=== PATIENT | female | born 1945 | race Caucasian/White ===

== ENCOUNTER 2018-08-31 14:40 | Inpatient (IN) | payer OTHER ==
[~2018-08-31] VITALS: Ht 157.5 cm; Wt 68.0 kg
[~2018-08-31 14:40] MED LIST: ACET-141 PO; ACET325T45 PO; BISA10SU55 RC; BUDE0.5A INHALATION; CEPH500C PO; FURO20TA3 PO; INSU100C SQ; LEVA0.634 INHALATION; LISI-471 PO; MAGN400O19 PO; NA P133E39 RC; OXYC5CAP17 PO; SERT25TA PO
[2018-08-31 15:14] VITALS: Ht 157.5 cm; Wt 68.0 kg
[2018-08-31] MEDS ORDERED: ONDANSETRON 4 MG INJ IV STA (15:30)
--- NOTE | 2018-08-31 16:28 | ERD ---
ER Documentation Chief Complaint Chief Complaint Pt. APRYL RA, c/o weakness in front of urgent care. HPI Patient states that she had surgery in [facility] several years ago for her heart. Was also have an urgent care today when she felt weak and ambulance was called and patient was brought to the ER. Patient denies having syncope, chest pain, nausea or vomiting, infectious symptoms or fever. Denies any headache or head trauma. Patient states she feels weak right now but no other symptoms. ROS All systems reviewed and are negative except as per history of present illness. Medications Home Meds Reported Medications Lisinopril* (Lisinopril*) 20 Mg Tablet, 20 MG PO DAILY, #30 TAB HOLD IF SBP<110 08/31/18 Budesonide* (Budesonide*) 0.5 Mg/2 Ml Ampul.neb, 0.5 MG INHALATION BID, AMP 08/31/18 Cephalexin* (Cephalexin*) 500 Mg Capsule, 500 MG PO Q8, #21 CAP FOR 7 DAYS,STOP DATE 09/01/18 08/31/18 Sertraline Hcl* (Zoloft*) 25 Mg Tablet, 25 MG PO DAILY, #30 TAB 08/31/18 Acetaminophen* (Acetaminophen*) 500 MG Extra Strength Tablet, 500 MG PO Q4H PRN for MILD PAIN(1-3)OR ELEVATED TEMP, TAB 08/31/18 Acetaminophen* (Acetaminophen*) 325 Mg Tablet, 650 MG PO Q4H PRN for PAIN LEVEL 4-6/10, #30 TAB AND FEVER>100F 08/31/18 Sodium Phosphate,[place]-Dibasic (Enema Ready To Use) 133 Ml Enema, 133 ML RC Q2D, ENEMA 08/31/18 Bisacodyl (Dulcolax) 10 Mg Supp.rect, 10 MG RC DAILY, SUPP.RECT 08/31/18 Magnesium Hydroxide* (Milk Of Magnesia*) 400 Mg/5 Ml Oral.susp, 30 ML PO DAILY PRN for NEEDED, ML 08/31/18 Levalbuterol Hcl* (Levalbuterol Hcl*) 0.63 Mg/3 Ml Vial.neb, 0.63 MG INHALATION Q4H PRN for WHEEZING AND SOB, VIAL 08/31/18 Oxycodone Hcl* (IR) (Oxycodone Hcl*) 5 Mg Capsule, 5 MG PO Q6H PRN for PAIN LEVEL 7-10/10, CAP 08/31/18 Insulin Lispro (Humalog) 100 Unit/1 Ml Cartridge, 0 SQ SLIDING SCALE, EA IF BS 0-150=0 UNIT, 151-200=2 UNITS,201-250=4 UNITS, 251-300=6 UNITS, 301-350=8 UNITS, 351-400=10 UNITS ABOVE 400=12 UNITS AND CALL MD 08/31/18 Allergies Allergies: Coded Allergies: No Known Allergy (Unverified , 08/31/18) Physical Exam Vitals Vital Signs Date Temp Pulse Resp B/P (MAP) Pulse Ox O2 O2 Flow FiO2 Time Delivery Rate 08/31/18 64 16 163/58 100 Room Air 18:00 (93) 08/31/18 97.8 54 16 131/46 91 15:14 (74) 08/31/18 98.1 56 18 132/46 99 15:13 (74) Physical Exam Const: No acute distress Head: Atraumatic Eyes: Normal Conjunctiva ENT: Normal External Ears, Nose and Mouth. Neck: Full range of motion. No meningismus. Resp: Clear to auscultation bilaterally Cardio: Regular rate and rhythm, no murmurs Abd: Soft, non tender, non distended. Normal bowel sounds Skin: No petechiae or rashes Back: No midline or flank tenderness Ext: No cyanosis, or edema Neur: Awake and alert Neuro Exam Mental status: oriented, alert, lucid, cooperative, appropriate Cranial nerves: CN 2-12 intact Motor: 5+ UE and LE, flexors and extensors symmetric Sensation: grossly intact to find touch UE and LE symmetrically Cerebellar: normal FTN bilaterally. No tremor noted Gait: normal gait Tone: normal bulk and tone in upper and lower extremities. No atrophy noted. Psych: Normal Mood and Affect Result Diagram: 08/31/18 1519 08/31/18 1519 Results 24 hrs Laboratory Tests Test 08/31/18 15:11 08/31/18 15:19 08/31/18 16:42 Bedside Glucose 139 mg/dL White Blood Count 9.4 10^3/ul Red Blood Count 3.63 10^6/ul Hemoglobin 11.3 g/dl Hematocrit 36.0 % Mean Corpuscular Volume 99.2 fl Mean Corpuscular Hemoglobin 31.1 pg Mean Corpuscular 31.4 g/dl Hemoglobin Concent Red Cell Distribution Width 13.6 % Platelet Count 210 10^3/UL Mean Platelet Volume 9.1 fl Immature Granulocytes % 0.600 % Neutrophils % 61.4 % Lymphocytes % 22.4 % Monocytes % 8.0 % Eosinophils % 7.0 % Basophils % 0.6 % Nucleated Red Blood Cells % 0.0 /100WBC Immature Granulocytes # 0.060 10^3/ul Neutrophils # 5.8 10^3/ul Lymphocytes # 2.1 10^3/ul Monocytes # 0.8 10^3/ul Eosinophils # 0.7 10^3/ul Basophils # 0.1 10^3/ul Nucleated Red Blood Cells # 0.0 10^3/ul Prothrombin Time 13.6 Sec Prothrombin Time Ratio 1.1 INR International 1.03 Normalized Ratio Activated Partial Thromboplast 31.5 Sec Time Sodium Level 138 mmol/L Potassium Level 3.4 mmol/L Chloride Level 96 mmol/L Carbon Dioxide Level 35 mmol/L Anion Gap 7 Blood Urea Nitrogen 32 mg/dl Creatinine 1.37 mg/dl Est Glomerular Filtrat mL/min Rate mL/min Glucose Level 129 mg/dl Calcium Level 9.4 mg/dl Total Bilirubin 0.6 mg/dl Direct Bilirubin 0.00 mg/dl Indirect Bilirubin 0.6 mg/dl Aspartate Amino 52 IU/L Transf (AST/SGOT) Alanine 29 IU/L Aminotransferase (ALT/SGPT) Alkaline Phosphatase 151 IU/L Troponin I < 0.012 ng/ml Total Protein 8.0 g/dl Albumin 3.8 g/dl Globulin 4.20 g/dl Albumin/Globulin Ratio 0.90 Lipase 579 U/L Urine Color STRAW Urine Clarity CLEAR Urine pH 6.0 Urine Specific Menan 1.004 Urine Ketones NEGATIVE mg/dL Urine Nitrite NEGATIVE mg/dL Urine Bilirubin NEGATIVE mg/dL Urine Urobilinogen NEGATIVE mg/dL Urine Leukocyte Esterase NEGATIVE Jess[place]/ul Urine Microscopic RBC 0 /HPF Urine Microscopic WBC 0 /HPF Urine Hemoglobin 1+ mg/dL Urine Glucose NEGATIVE mg/dL Urine Total Protein NEGATIVE mg/dl Current Medications Medications Dose Sig/Surinder Start Time Status Last (Trade) Ordered Route PRN Stop Time Admin Dose Reason Admin Ondansetron 4 mg ONCE STAT 08/31/18 DC 08/31/18 HCl (Zofran IV 15:30 15:41 Inj) 08/31/18 15:31 Sodium 1,000 ml @ Q1H ONCE 08/31/18 DC 08/31/18 Chloride 1,000 mls/hr IV 16:30 16:41 08/31/18 17:29 Meclizine 25 mg ONCE ONCE 08/31/18 DC 08/31/18 HCl PO 17:30 17:28 (Antivert) 08/31/18 17:31 IV Flush 10 ml STK-MED 08/31/18 DC (NS 10 ml) ONCE .ROUTE 18:37 08/31/18 18:38 Sodium 100 ml @ ud STK-MED 08/31/18 DC Chloride ONCE .ROUTE 18:37 08/31/18 18:38 Iohexol 0 ml @ ud STK-MED 08/31/18 DC ONCE .ROUTE 18:37 08/31/18 18:38 Iodixanol 100 ml STK-MED 08/31/18 DC (Visipaque ONCE .ROUTE 18:38 Locm) 08/31/18 18:39 Procedures/MDM EKG: Rate/Rhythm: Normal Sinus Rhythm QRS, ST, T-waves: No changes consistent w/ acute ischemia. t wave falltenig nlateral leads Impression: No evidence of ischemia or arrhythmia Progress note Time: 1841 Update: Patient's daughter arrived to the emergency department states that patient had an aortic valve replacement several weeks ago that was complicated by a stroke with no residual symptoms and negative CT at outside hospital. Patient continues to feel slightly weak states that weakness is worse with moving her head. Will get CT to rule out stroke. Patient is outside the window for TPA and is contraindicated given recent stroke and surgery. Progress note Time: 1925 CT brain with no acute stroke left MCA possible occlusion pending CTA read outside of the window will admit Patient presented with weakness in setting of recent aortic valve replacement EKG chest x-ray labs are reassuring. Patient has nonfocal neuro exam. No nystagmus, normal [id number] and [id number]. Will get CT to rule out stroke however low suspicion at this time. Low suspicion for ACS, malignant arrhythmia or infection given negative work-up so far. BRENDAN ALEGRIA MD Aug 31, 2018 16:28
[2018-08-31] MEDS ORDERED: SOD CHLORIDE 0.9% 1,000 ML IV ONE (16:30)
[2018-08-31] MEDS ORDERED: MECLIZINE 12.5 MG TAB PO ONE (17:30)
[2018-08-31] MEDS ORDERED: SOD CHLORIDE 0.9% 100 ML ONE (18:37)
[2018-08-31] MEDS ORDERED: IOHEXOL 0 ML ONE (18:37)
[2018-08-31] MEDS ORDERED: IODIXANOL LOCM 100 ML BTL ONE (18:38)
[2018-08-31] MEDS ORDERED: ACETAMINOPHEN 325 MG TAB PO PRN ×2 (19:30→21:30)
[2018-08-31] MEDS ORDERED: ONDANSETRON 4 MG INJ IV PRN (19:30)
--- NOTE | 2018-08-31 20:02 | HP ---
Date/Time of Note Date/Time of Note DATE: 08/31/18 TIME: 20:01 Assessment/Plan VTE Prophylaxis SCD applied (from Ns): Yes Pharmacological prophylaxis: NA/contraindicated Pharm contraindication: low risk/ambulating Assessment/Plan Hospital Course This is a 73-year female being admitted to the telemetry floor for: #1 suspicion for acute CVA: Vertigo is also in the differential. Patient has a recent history of a CVA approximately 6 weeks ago at [facility]. She has been rehabilitating at [facility] facility. She today experienced an episode of dizziness. Her dizziness is exacerbated when she opens her eyes as per the daughter. CT scan of the brain without contrast did not show any acute infarcts CT angiogram of the head showed: 1. Age indeterminate thrombosis of the proximal right posterior cerebral artery.. Although there is a large old right posterior temporal - occipital infarct corresponding to this vascular distribution, and extension of a previously stenotic vessel cannot be excluded. Recommend correlation MRI brain. 2. Multifocal left middle cerebral artery M1 and bilateral middle cerebral and to branch stenoses. Previously demonstrated hyperdensity and a left M2 branch on CT. Narrowed without occlusion. Will obtain MRI of the brain. We will monitor the patient on telemetry. Neurochecks every 4 hours. Permissive hypertension with first 24 hours. Neurosurgery was spoken to by the ED yesterday and recommendation at the current time was to pursue MRI and neurology consultation.Will consult neurology . Echo with bubbly study. Fall precautions. PT/OT/speech eval. aspirin/statin. Will check hemoglobin C, lipid panel, TSH #2 hypertension: Permissive hypertension for 24 hours, will hold home oral medications and resume once indicated #3 hypothyroidism: We will check TSH, resume home levothyroxine once we confirm home dosage. #4 diabetes mellitus check hemoglobin A1c #5 hyperlipidemia: Initiate statin, check lipid panel #6 recent CVA: It is unclear what exact deficits the patient had after she had her CVA approximately 6 weeks ago. She did go to rehab for it. Will need to confirm with the family regarding her deficits, she was not able to participate in neuro exam for me. Please see the neuro examination from the ED physician. #7 aortic stenosis status: Post aortic valve replacement. Patient apparently has a bovine aortic valve. Will check an echocardiogram with bubble study. Will consult cardiology. In the setting of any need for anticoagulation. #8 NIA: I do not have a previous baseline creatinine. This likely could be prerenal. Patient does appear to be mildly dehydrated. We will hydrate the patient normal saline. Monitor renal function. #9 mild dehydration: Daughter does report that the patient has had a poor appetite the last few days. Will hydrate patient normal saline. Swallow evaluation. #10 DVT GI prophylaxis: SCDs, no GI prophylaxis indicated Further treatment strategy will be implemented as per the clinical course. Result Diagram: 08/31/18 1519 08/31/18 1519 Results 24hrs Laboratory Tests Test 08/31/18 15:11 08/31/18 15:19 08/31/18 16:42 Bedside Glucose 139 White Blood Count 9.4 Red Blood Count 3.63 L Hemoglobin 11.3 L Hematocrit 36.0 L Mean Corpuscular Volume 99.2 Mean Corpuscular Hemoglobin 31.1 Mean Corpuscular Hemoglobin Concent 31.4 L Red Cell Distribution Width 13.6 Platelet Count 210 Mean Platelet Volume 9.1 Immature Granulocytes % 0.600 H Neutrophils % 61.4 Lymphocytes % 22.4 Monocytes % 8.0 Eosinophils % 7.0 Basophils % 0.6 Nucleated Red Blood Cells % 0.0 Immature Granulocytes # 0.060 H Neutrophils # 5.8 Lymphocytes # 2.1 Monocytes # 0.8 Eosinophils # 0.7 H Basophils # 0.1 Nucleated Red Blood Cells # 0.0 Prothrombin Time 13.6 Prothrombin Time Ratio 1.1 INR International Normalized Ratio 1.03 Activated Partial Thromboplast Time 31.5 Sodium Level 138 Potassium Level 3.4 L Chloride Level 96 L Carbon Dioxide Level 35 H Anion Gap 7 Blood Urea Nitrogen 32 H Creatinine 1.37 H Est Glomerular Filtrat Rate mL/min Glucose Level 129 Calcium Level 9.4 Total Bilirubin 0.6 Direct Bilirubin 0.00 Indirect Bilirubin 0.6 Aspartate Amino Transf (AST/SGOT) 52 H Alanine Aminotransferase (ALT/SGPT) 29 Alkaline Phosphatase 151 H Troponin I < 0.012 Total Protein 8.0 Albumin 3.8 Globulin 4.20 H Albumin/Globulin Ratio 0.90 Lipase 579 H Urine Color STRAW Urine Clarity CLEAR Urine pH 6.0 Urine Specific [place] 1.004 Urine Ketones NEGATIVE Urine Nitrite NEGATIVE Urine Bilirubin NEGATIVE Urine Urobilinogen NEGATIVE Urine Leukocyte Esterase NEGATIVE Urine Microscopic RBC 0 Urine Microscopic WBC 0 Urine Hemoglobin 1+ H Urine Glucose NEGATIVE Urine Total Protein NEGATIVE HPI/ROS Admit Date/Time Admit Date/Time Hx of Present Illness Chief complaint: Weak, tired History was obtained from the ED physician as well as from the daughter at the bedside as patient was unable to provide history due to lethargy/clinical condition. This is a 73-year-old female with past medical history of hypertension, diabetes, hyperlipidemia, recent CVA, aortic stenosis status post aortic valve replacement who presented to the ER with symptoms of feeling weak as per the daughter. Patient has been at [facility] where she is been for the last 6 weeks after having suffered a CVA at [facility] where she had her aortic valve replaced. Daughter reports that she has been confused since then. Her daughter today who was with her and they were driving and the patient reported that when she opened her eyes she felt dizzy. The daughter took her to an urgent care who then called an ambulance and brought her to [facility]. The patient reported that she feels weak but denied any other symptoms. Denies any chest pain nausea vomiting or diarrhea. She does appear tired. CT imaging studies did not now any acute strokes, but evidence of old infarcts were visible as well as possible stenotic/thrombosed vessels on CTA of the had, please see imaging studies. Allergies: NKDA Medications: See MONIE QUIROZ Const: As per HPI Eyes : No pain discharge or redness or change in visual acuity ENT: No pain, sore throat, congestion, congestion, dysphagia or discharge Respiratory: No shortness of breath, cough, sputum, wheezing, or pleuritic pain Cardiovascular: No chest pain, palpitation, PND, or edema GI : no change in appetite, abdominal pain, nausea, vomiting, diarrhea, constipation, or change in the color his stool Genitourinary: No dysuria, hematuria, flank pain , discharge or CVA tenderness Musculoskeletal: No joint pain, back pain, neck pain, restricted range of motion in neck or joints Skin: No rash, bruising or hives Neuro: As per HPI Endocrine: No polyuria, polydipsia, temperature intolerance Psych: No hallucination, depression, anxiety or suicidal ideation Constitutional: No diaphoresis Additional Comments PROCEDURE: CT Brain without contrast. CLINICAL INDICATION: Focal neurological deficit TECHNIQUE: A CT of the brain was performed on a multislice detector CT scanner utilizing axial sections from the skull base through the vertex without contrast. Images were reviewed on a high-resolution PACS workstation. Exam CTDlvol = 40 mGy and DLP = 634 mGy-cm. One of the following 3 dose reduction techniques were used: Automated exposure control; adjustment of the mA and/or kV according to patient size; or use of iterative reconstruction technique. DICOM images are available. COMPARISON: None available FINDINGS: There old bilateral posterior temporal - occipital and parietal infarcts with encephalomalacia. There are dystrophic calcifications in the parasagittal posterior right parietal lobe encephalomalacia. There are old bilateral caudate lacunar infarcts. There is otherwise age appropriate central and peripheral atrophy. There is no midline shift. There is a moderate degree of supratentorial periventricular and subcortical white matter hypodensities. There is no definite acute stroke. A temporal M2 branch of the left middle cerebral artery in the sylvian fissure is hyperdense. There is no intracranial hemorrhage or abnormal extra-axial fluid collection. Visualized paranasal sinuses are clear. IMPRESSION: 1. No acute intracranial stroke or hemorrhage. 2. Old bilateral posterior temporal - occipital - parietal infarcts. 3. Age indeterminate hyperdense left middle cerebral artery M2 branch of the sylvian fissure which may represent a thrombosed vessel. 4. Old bilateral caudate lacunar infarcts. 5. Nonspecific white matter changes most commonly seen with microvascular ischemic disease. Findings reported to Dr. Cherry on 08/31/2018 7:00:54 PM. RPTAT: [facility] .Orlando Maynard MD, MD Date Time Electronically viewed and signed by .Orlando Maynard MD, MD on 08/31/2018 19:02 .K/ CC: ORLANDO CHERRY MD [id number] PROCEDURE: CT Angiogram Head and Neck with IV Contrast CLINICAL INDICATION: Neurological deficit.. TECHNIQUE: Serial axial computed tomographic images of the head and neck were obtained at the administration of 90 cc Visipaque 320 IV contrast material. 3D, sagittal and coronal reconstruction images were created. 3D/MIP post-processing angiographic reconstruction images were also produced. Exam CTDlvol = 16 mGy and DLP = 579 mGy-cm. One of the following 3 dose reduction techniques were used: Automated exposure control; adjustment of the mA and/or kV according to patient size; or use of iterative reconstruction technique. DICOM images are available. COMPARISON: CT brain 08/31/2018. FINDINGS: Study limited by patient motion. CT Angio Neck: There are extensive irregular partially calcified atherosclerotic plaques of the aortic arch. The common carotid arteries are normal in appearance. There is moderate bilateral partially calcified plaque at the carotid bifurcations without hemodynamically significant stenosis. Mild partially calcified plaque in the distal left cervical internal carotid artery. There is no evidence for carotid dissection. The vertebral arteries are unremarkable. There are degenerative changes of the cervical spine. CT Angio Head: There is moderate atherosclerotic calcifications of the bilateral cavernous internal carotid arteries without a significant stenosis. There are multiple non occluding stenoses involving the supraclinoid left internal carotid artery, distal M1 segment of the left middle cerebral artery and several M2 branches of the left middle cerebral artery within the sylvian fissure. A previously demonstrated hyperdense left middle cerebral artery branch within the posterior left sylvian fissure adjacent temporal lobe demonstrates mild narrowing without occlusion. There is mild right middle cerebral artery M2 branch stenoses. There is mild multifocal stenoses of the basilar artery. There is occlusion of the proximal P1 segment of the right posterior cerebral artery without significant distal runoff. No aneurysm or vascular malformation is identified. No abnormal brain parenchymal enhancement is identified. IMPRESSION: 1. Age indeterminate thrombosis of the proximal right posterior cerebral artery.. Although there is a large old right posterior temporal - occipital infarct corresponding to this vascular distribution, and extension of a previously stenotic vessel cannot be excluded. Recommend correlation MRI brain. 2. Multifocal left middle cerebral artery M1 and bilateral middle cerebral and to branch stenoses. Previously demonstrated hyperdensity and a left M2 branch on CT. Narrowed without occlusion. 2. Moderate bilateral carotid bulb plaque without hemodynamically significant stenosis. 3. Moderate bilateral cavernous internal carotid artery partially calcified plaque without significant stenosis. 4. Extensive irregular partially prateek atherosclerotic plaque at the aortic arch. Ulcerative plaques are suspected. 5. No aneurysm or vascular malformation. 6. Degenerative changes of the cervical spine. Findings reported to Dr. Cherry on 08/31/2018 7:33:32 PM. NASCET CAROTID STENOSIS CRITERIA (distal normal appearing ICA as denominator for measurement): 0%-none, 1-49%-mild, 50-70%-moderate, 70-89%-severe, 90-99%-critical. RPTAT: [facility] .Orlando Maynard MD, Date Time Electronically viewed and signed by .Orlando Maynard MD, on 08/31/2018 19:35 .K/ CC: ORLANDO CHERRY MD [id number] PROCEDURE: XR Chest, 1 View CLINICAL INDICATION: Pain. TECHNIQUE: Frontal view of the chest. COMPARISON: None FINDINGS: LUNGS: The lungs are hyperinflated, suggesting COPD. No consolidative pulmonary infiltrates noted. PLEURAL SPACE: Unremarkable. No pneumothorax. HEART: Unremarkable. No cardiomegaly. MEDIASTINUM: Unremarkable. BONES/JOINTS: Status post median sternotomy. Degenerative changes of the thoracic spine are noted. VASCULATURE: The thoracic aorta is tortuous and atherosclerotic. IMPRESSION: 1. The lungs are hyperinflated, suggesting COPD. 2. No acute cardiopulmonary disease demonstrated. RPTAT: [facility] Jgauar Roldan Physician Associate Attorney Date Time Electronically viewed and signed by Jaguar Roldan, Physician Associate Attorney on 08/31/2018 16:16 RmC/ CC: ORLANDO CHERRY MD [id number] PMH/Family/Social Past Medical History Hypertension Hypothyroidism Diabetes mellitus Hyperlipidemia CVA Aortic stenosis status post aortic valve replacement Medications Current Medications Ondansetron HCl (Zofran Inj) 4 mg ER BRIDGE PRN IV NAUSEA/VOMITING; Start 08/31/18 at 19:30; Stop 09/01/18 at 19:29 Acetaminophen (Tylenol Tab) 650 mg ER BRIDGE PRN PO .MILD PAIN 1-3 OR TEMP; Start 08/31/18 at 19:30; Stop 09/01/18 at 19:29 Coded Allergies: No Known Allergy (Unverified , 7/26/19) Past Surgical History Aortic valve replacement Family History Significant Family History: no pertinent family hx Social History Alcohol Use: none Smoking Status: Never smoker Drug Use: none Exam/Review of Systems Vital Signs Vitals Vital Signs Date Temp Pulse Resp B/P (MAP) Pulse Ox O2 O2 Flow FiO2 Time Delivery Rate 08/31/18 64 16 163/58 100 Room Air 18:00 (93) 08/31/18 97.8 15:14 Exam Exam General: Patient is currently lying in bed in no acute distress, she is lethargic but arousable HEENT: Atraumatic, normocephalic. The pupils are equal, round and reactive. Extraocular motor are intact Neck: Supple with full range of motion. No rigidity or meningismus Chest: Nontender Lungs: Clear to auscultation bilaterally no crackles rales or wheezing Heart: Normal S1-S2, Regular rhythm and rate. No murmur, S3, or S4 Abdomen: Soft , nontender, nondistended , bowel sounds are present. No guarding no rebound tenderness , No masses or organomegaly. No costovertebral temporal angle mass Extremities: Normal to inspection, no edema no cyanosis Neurologic: During my examination the patient was lethargic and arousable but she was not able to participate in a full neurological examination. I have provided the ED physicians neurological examination below: Mental status: oriented, alert, lucid, cooperative, appropriate Cranial nerves: CN 2-12 intact Motor: 5+ UE and LE, flexors and extensors symmetric Sensation: grossly intact to find touch UE and LE symmetrically Cerebellar: normal FTN bilaterally. No tremor noted Gait: normal gait Tone: normal bulk and tone in upper and lower extremities. No atrophy noted. Additional Comments PROCEDURE: CT Brain without contrast. CLINICAL INDICATION: Focal neurological deficit TECHNIQUE: A CT of the brain was performed on a multislice detector CT scanner utilizing axial sections from the skull base through the vertex without contrast. Images were reviewed on a high-resolution PACS workstation. Exam C TDlvol = 40 mGy and DLP = 634 mGy-cm. One of the following 3 dose reduction techniques were used: Automated exposure control; adjustment of the mA and/or kV according to patient size; or use of iterative reconstruction technique. DICOM images are available. COMPARISON: None available FINDINGS: There old bilateral posterior temporal - occipital and parietal infarcts with encephalomalacia. There are dystrophic calcifications in the parasagittal posterior right parietal lobe encephalomalacia. There are old bilateral caudate lacunar infarcts. There is otherwise age appropriate central and peripheral atrophy. There is no midline shift. There is a moderate degree of supratentorial periventricular and subcortical white matter hypodensities. There is no definite acute stroke. A temporal M2 branch of the left middle cerebral artery in the sylvian fissure is hyperdense. There is no intracranial hemorrhage or abnormal extra-axial fluid collection. Visualized paranasal sinuses are clear. IMPRESSION: 1. No acute intracranial stroke or hemorrhage. 2. Old bilateral posterior temporal - occipital - parietal infarcts. 3. Age indeterminate hyperdense left middle cerebral artery M2 branch of the sylvian fissure which may represent a thrombosed vessel. 4. Old bilateral caudate lacunar infarcts. 5. Nonspecific white matter changes most commonly seen with microvascular is chemic disease. Findings reported to Dr. Cherry on 08/31/2018 7:00:54 PM. RPTAT: [facility] .Orlando Maynard MD, MD Date Time Electronically viewed and signed by .Orlando Maynard MD, MD on 08/31/2018 19:02 .K/ CC: ORLANDO CHERRY MD [id number] PROCEDURE: CT Angiogram Head and Neck with IV Contrast CLINICAL INDICATION: Neurological deficit.. TECHNIQUE: Serial axial computed tomographic images of the head and neck were obtained at the administration of 90 cc Visipaque 320 IV contrast material. 3D, sagittal and coronal reconstruction images were created. 3D/MIP post-processing angiographic reconstruction images were also produced. Exam CTDlvol = 16 mGy and DLP = 579 mGy-cm. One of the following 3 dose reduction techniques were used: Automated exposure control; adjustment of the mA and/or kV according to patient size; or use of iterative reconstruction technique. DICOM images are available. COMPARISON: CT brain 08/31/2018. FINDINGS: Study limited by patient motion. CT Angio Neck: There are extensive irregular partially calcified atherosclerotic plaques of the aortic arch. The common carotid arteries are normal in appearance. There is moderate bilateral partially calcified plaque at the carotid bifurcations without hemodynamically significant stenosis. Mild partially calcified plaque in the distal left cervical internal carotid artery. There is no evidence for carotid dissection. The vertebral arteries are unremarkable. There are degenerative changes of the cervical spine. CT Angio Head: There is moderate atherosclerotic calcifications of the bilateral cavernous internal carotid arteries without a significant stenosis. There are multiple non occluding stenoses involving the supraclinoid left internal carotid artery, distal M1 segment of the left middle cerebral artery and several M2 branches of the left middle cerebral artery within the sylvian fissure. A previously demonstrated hyperdense left middle cerebral artery branch within the posterior left sylvian fissure adjacent temporal lobe demonstrates mild narrowing without occlusion. There is mild right middle cerebral artery M2 branch stenoses. There is mild multifocal stenoses of the basilar artery. There is occlusion of the proximal P1 segment of the right posterior cerebral artery without significant distal runoff. No aneurysm or vascular malformation is identified. No abnormal brain parenchymal enhancement is identified. IMPRESSION: 1. Age indeterminate thrombosis of the proximal right posterior cerebral artery.. Although there is a large old right posterior temporal - occipital infarct corresponding to this vascular distribution, and extension of a previously stenotic vessel cannot be excluded. Recommend correlation MRI brain. 2. Multifocal left middle cerebral artery M1 and bilateral middle cerebral and to branch stenoses. Previously demonstrated hyperdensity and a left M2 branch on CT. Narrowed without occlusion. 2. Moderate bilateral carotid bulb plaque without hemodynamically significant stenosis. 3. Moderate bilateral cavernous internal carotid artery partially calcified plaque without significant stenosis. 4. Extensive irregular partially prateek atherosclerotic plaque at the aortic arch. Ulcerative plaques are suspected. 5. No aneurysm or vascular malformation. 6. Degenerative changes of the cervical spine. Findings reported to Dr. Cherry on 08/31/2018 7:33:32 PM. NASCET CAROTID STENOSIS CRITERIA (distal normal appearing ICA as denominator for measurement): 0%-none, 1-49%-mild, 50-70%-moderate, 70-89%-severe, 90-99%-critical. RPTAT: [facility] .Orlando Maynard MD, MD Date Time Electronically viewed and signed by .Orlando Maynard MD, on 08/31/2018 19:35 .K/ CC: ORLANDO CHERRY MD [id number] ALEX CADE Aug 31, 2018 20:02
[2018-08-31] MEDS ORDERED: ASPIRIN 325 MG TAB PO ONE (20:30)
[2018-08-31] MEDS: BUDESONIDE (NEB) 0.5MG/2ML AMP HHN SCH (21:30)
[2018-08-31] MEDS ORDERED: LEVALBUTEROL (NEB) 0.63 MG/3 ML AMP HHN PRN (21:30)
[2018-08-31] MEDS ORDERED: ONDANSETRON 4 MG TAB PO PRN (21:30)
[2018-08-31] MEDS ORDERED: MAGNESIUM HYDROXIDE 30ML CUP PO PRN (21:30)
[2018-08-31] MEDS ORDERED: BISACODYL (EC) 5 MG TAB PO PRN (21:30)
[2018-08-31] MEDS ORDERED: NACL 0.9% 3 ML SYG IV SCH (21:30)
[2018-08-31] MEDS: DOCUSATE SODIUM 100 MG CAP PO SCH (23:08)
[2018-08-31] MEDS: METOCLOPRAMIDE 10 MG INJ IV PRN (23:17)
[2018-08-31] MEDS: ONDANSETRON 4 MG INJ IV PRN (23:17)
[2018-09-01] VITALS: BP 189/78; PULSE 61; RESP 18
[2018-09-01] MEDS ORDERED: POTASSIUM CHLORIDE (SR) 20 MEQ TAB PO ONE
[2018-09-01] MEDS ORDERED: MECLIZINE 25 MG TAB PO PRN (01:00)
[2018-09-01] MEDS ORDERED: LEVOTHYROXINE 100 MCG TAB PO ONE (01:00)
[2018-09-01] MEDS ORDERED: DOCUSATE SODIUM 100 MG CAP PO PRN (01:00)
[2018-09-01] MEDS ORDERED: BUMETANIDE 0.5 MG TAB PO SCH ×3 (01:00→09:00)
[2018-09-01] MEDS ORDERED: GLUCOSE GEL 15 GRAM TUBE PO PRN ×2 (02:00)
[2018-09-01] MEDS ORDERED: GLUCAGON 1 MG INJ IM PRN (02:00)
[2018-09-01] MEDS ORDERED: DEXTROSE 50% 50 ML SYRINGE IV PRN ×2 (02:00)
[2018-09-01] MEDS ORDERED: GLUCOSE GEL 15 GRAM TUBE BUCCAL PRN (02:00)
[2018-09-01] MEDS: INSULIN ASPART [NOVOLOG] 3 ML PEN SC SCH ×6 (02:02→20:25)
[2018-09-01 03:50] VITALS: BP 140/63; PULSE 58; RESP 19
[2018-09-01] MEDS ORDERED: FUROSEMIDE 20 MG TAB PO SCH (06:00)
[2018-09-01] MEDS: LEVOTHYROXINE 100 MCG TAB PO SCH (06:46)
[2018-09-01 07:32] VITALS: BP 144/65; PULSE 61; RESP 18
[2018-09-01] MEDS: BUDESONIDE (NEB) 0.5MG/2ML AMP HHN SCH ×2 (09:22→20:06)
--- NOTE | 2018-09-01 09:54 | CONSI ---
Assessment/Plan Assessment/Plan Assessment/Plan (Recall) 73 F c/ multiple comorbidities, including kin-operative strokes 6 weeks ago...who presents for evaluation of nonspecific dizziness. The clinical picture is atypical for an acute cerebrovascular process.. Noted to be in NIA on arrival, which is a potential contributor.. Head CT confirms prior multifocal infarcts. CTA head and neck confirms multifocal stenoses.. P: Await MRI brain for further characterization Agree w/ asa/lipitor daily for secondary stroke prevention Continued medical management and supportive care per primary PT/OT/ST as necessary Will follow clinically, to recommend additional neurologic studies as necessary Consultation Date/Type/Reason Admit Date/Time Type of Consult Neurology Reason for Consultation dizziness Requesting Provider: ALEX CADE Date/Time of Note DATE: 09/01/18 TIME: 09:47 Hx of Present Illness This is a 73-year-old female with past medical history of hypertension, diabetes, hyperlipidemia, recent CVA, aortic stenosis status post aortic valve replacement who presented to the ER with symptoms of feeling weak as per the daughter. Patient has been at [facility] where she is been for the last 6 weeks after having suffered a CVA at [facility] where she had her aortic valve replaced. Daughter reports that she has been confused since then. Her daughter today who was with her and they were driving and the patient reported that when she opened her eyes she felt dizzy. The daughter took her to an urgent care who then called an ambulance and brought her to [facility]. The p atient reported that she feels weak but denied any other symptoms. Denies any chest pain nausea vomiting or diarrhea. She does appear tired. CT of the brain showed:1. No acute intracranial stroke or hemorrhage. 2. Old bilateral posterior temporal - occipital - parietal infarcts. 3. Age indeterminate hyperdense left middle cerebral artery M2 branch of the sylvian fissure which may represent a thrombosed vessel. 4. Old bilateral caudate lacunar infarcts. 5. Nonspecific white matter changes most commonly seen with microvascular ischemic disease. per HPI Objective Exam Vitals Vital Signs Date Temp Pulse Resp B/P (MAP) Pulse Ox O2 O2 Flow FiO2 Time Delivery Rate 09/01/18 98 3.0 09:24 09/01/18 62 20 Nasal 09:23 Cannula 09/01/18 98.2 144/65 07:32 (91) Intake and Output 08/31/18 08/31/18 09/01/18 1515:00 23:00 07:00 IntakeIntake Total 300 ml BalanceBalance 300 ml Exam PE: Gen Appearance: No Apparent Distress HEENT: Normocephalic Cardiovascular: Regular rate Abdomen: Soft Extremities: Dry NE: The patient was alert and oriented to person and hospital. Language was normal. Fund of knowledge was limited. Pupils were equal and reactive to light. There was no afferent pupillary defect. Visual benedict were normal. Funduscopic examination was limited. Extra-ocular movements were full. Ptosis was absent. There was no nystagmus. Facial sensation was normal. Face was symmetric with normal strength. Hearing was intact. Palate movements were normal. Neck strength was normal. There was normal tongue bulk and speed of movement. Tone was normal. Muscle bulk was normal. I did not see fasciculations. Arms and legs were symmetric. Vibration sensation was normal. Temperature and pinprick sensation was normal. Rapid alternating movements were normal. There was no dysmetria. There was no intention tremor. Gait was deferred due to bedrest. Arm and leg reflexes were symmetric. Cho's sign was absent. Plantar responses were flexor. Results Result Diagram: 09/01/18 0503 09/01/18 0503 Results 24hrs Laboratory Tests Test 08/31/18 15:11 08/31/18 15:19 08/31/18 16:42 09/01/18 02:02 Bedside Glucose 139 73 White Blood Count 9.4 Red Blood Count 3.63 L Hemoglobin 11.3 L Hematocrit 36.0 L Mean Corpuscular 99.2 Volume Mean Corpuscular 31.1 Hemoglobin Mean Corpuscular 31.4 L Hemoglobin Concent Red Cell 13.6 Distribution Width Platelet Count 210 Mean Platelet Volume 9.1 Immature 0.600 H Granulocytes % Neutrophils % 61.4 Lymphocytes % 22.4 Monocytes % 8.0 Eosinophils % 7.0 Basophils % 0.6 Nucleated Red Blood 0.0 Cells % Immature 0.060 H Granulocytes # Neutrophils # 5.8 Lymphocytes # 2.1 Monocytes # 0.8 Eosinophils # 0.7 H Basophils # 0.1 Nucleated Red Blood 0.0 Cells # Prothrombin Time 13.6 Prothrombin Time 1.1 Ratio INR International 1.03 Normalized Ratio Activated 31.5 Partial Thromboplast Time Sodium Level 138 Potassium Level 3.4 L Chloride Level 96 L Carbon Dioxide Level 35 H Anion Gap 7 Blood Urea Nitrogen 32 H Creatinine 1.37 H Est Glomerular Filtrat Rate mL/min Glucose Level 129 Calcium Level 9.4 Total Bilirubin 0.6 Direct Bilirubin 0.00 Indirect Bilirubin 0.6 Aspartate Amino 52 H Transf (AST/SGOT) Alanine 29 Aminotransferase (AL T/SGPT) Alkaline Phosphatase 151 H Troponin I < 0.012 Total Protein 8.0 Albumin 3.8 Globulin 4.20 H Albumin/Globulin 0.90 Ratio Lipase 579 H Urine Color STRAW Urine Clarity CLEAR Urine pH 6.0 Urine Specific 1.004 Melbeta Urine Ketones NEGATIVE Urine Nitrite NEGATIVE Urine Bilirubin NEGATIVE Urine Urobilinogen NEGATIVE Urine Leukocyte NEGATIVE Esterase Urine Microscopic 0 RBC Urine Microscopic 0 WBC Urine Hemoglobin 1+ H Urine Glucose NEGATIVE Urine Total Protein NEGATIVE Test 09/01/18 05:03 09/01/18 05:06 09/01/18 06:45 White Blood Count 9.2 Red Blood Count 3.32 L Hemoglobin 10.7 L Hematocrit 33.6 L Mean Corpuscular 101.2 H Volume Mean Corpuscular 32.2 Hemoglobin Mean Corpuscular 31.8 L Hemoglobin Concent Red Cell 13.6 Distribution Width Platelet Count 202 Mean Platelet Volume 10.0 Immature 0.800 H Granulocytes % Neutrophils % 58.2 Lymphocytes % 24.0 Monocytes % 9.1 Eosinophils % 7.4 H Basophils % 0.5 Nucleated Red Blood 0.0 Cells % Immature 0.070 H Granulocytes # Neutrophils # 5.4 Lymphocytes # 2.2 Monocytes # 0.8 Eosinophils # 0.7 H Basophils # 0.1 Nucleated Red Blood 0.0 Cells # Sodium Level 144 Potassium Level 4.1 Chloride Level 105 Carbon Dioxide Level 30 Anion Gap 9 Blood Urea Nitrogen 26 H Creatinine 1.14 H Est Glomerular Filtrat Rate mL/min Glucose Level 68 #L Calcium Level 9.2 Total Bilirubin 0.6 Direct Bilirubin 0.00 Indirect Bilirubin 0.6 Aspartate Amino 46 Transf (AST/SGOT) Alanine 29 Aminotransferase (AL T/SGPT) Alkaline Phosphatase 140 H Total Protein 6.9 # Albumin 3.2 L Globulin 3.70 H Albumin/Globulin 0.86 Ratio Thyroid Stimulating 64.900 H 60.600 H Hormone (TSH) Free Thyroxine 1.52 Free 2.71 L Triiodothyronine (T3) pg/mL Hemoglobin A1c 4.9 Magnesium Level 2.3 Triglycerides Level 101 Cholesterol Level 124 LDL Cholesterol, 77 Calculated HDL Cholesterol 27 L Cholesterol/HDL 4.5 Ratio Bedside Glucose 80 Past Medical History reviewed Home Meds Reported Medications Lisinopril* (Lisinopril*) 20 Mg Tablet, 20 MG PO DAILY, #30 TAB HOLD IF SBP<110 08/31/18 Budesonide* (Budesonide*) 0.5 Mg/2 Ml Ampul.neb, 0.5 MG INHALATION BID, AMP 08/31/18 Cephalexin* (Cephalexin*) 500 Mg Capsule, 500 MG PO Q8, #21 CAP FOR 7 DAYS,STOP DATE 09/01/18 08/31/18 Sertraline Hcl* (Zoloft*) 25 Mg Tablet, 25 MG PO DAILY, #30 TAB 08/31/18 Acetaminophen* (Acetaminophen*) 500 MG Extra Strength Tablet, 500 MG PO Q4H PRN for MILD PAIN(1-3)OR ELEVATED TEMP, TAB 08/31/18 Acetaminophen* (Acetaminophen*) 325 Mg Tablet, 650 MG PO Q4H PRN for PAIN LEVEL 4-6, #30 TAB AND FEVER>100F 08/31/18 Sodium Phosphate,Parmer-Dibasic (Enema Ready To Use) 133 Ml Enema, 133 ML RC Q2D, ENEMA 08/31/18 Bisacodyl (Dulcolax) 10 Mg Supp.rect, 10 MG RC DAILY, SUPP.RECT 08/31/18 Magnesium Hydroxide* (Milk Of Magnesia*) 400 Mg/5 Ml Oral.susp, 30 ML PO DAILY PRN for NEEDED, ML 08/31/18 Levalbuterol Hcl* (Levalbuterol Hcl*) 0.63 Mg/3 Ml Vial.neb, 0.63 MG INHALATION Q4H PRN for WHEEZING AND SOB, VIAL 08/31/18 Oxycodone Hcl* (IR) (Oxycodone Hcl*) 5 Mg Capsule, 5 MG PO Q6H PRN for PAIN LEVEL 7-11/15, CAP 08/31/18 Insulin Lispro (Humalog) 100 Unit/1 Ml Cartridge, 0 SQ SLIDING SCALE, EA IF BS 0-150=0 UNIT, 151-200=2 UNITS,201-250=4 UNITS, 251-300=6 UNITS, 301-350=8 UNITS, 351-400=10 UNITS ABOVE 400=12 UNITS AND CALL MD 08/31/18 Medications Current Medications Budesonide (Pulmicort (Neb)) 0.5 mg BID HHN Last administered on 09/01/18at 09:22; Admin Dose 0.5 MG; Start 08/31/18 at 21:30 Levalbuterol (Xopenex Neb) 0.63 mg Q4H PRN HHN WHEEZING AND SOB Last administered on 09/01/18at 03:33; Admin Dose 0.63 MG; Start 08/31/18 at 21:30 Lisinopril (Zestril) 20 mg DAILY PO ; Start 09/01/18 at 09:00; Status Hold Magnesium Hydroxide (Milk Of Mag) 30 ml DAILY PRN PO NEEDED; Start 08/31/18 at 21:30 Sertraline HCl (Zoloft) 25 mg DAILY PO ; Start 09/01/18 at 09:00; Status Hold IV Flush (NS 3 ml) 3 ml PER PROTOCOL IV ; Start 08/31/18 at 21:30 Aspirin (Aspirin) 81 mg DAILY PO ; Start 09/01/18 at 09:00 Acetaminophen (Tylenol Tab) 650 mg Q6H PRN PO .PAIN 1-3 OR TEMP; Start 08/31/18 at 21:30 Docusate Sodium (Colace) 100 mg Q12H PO ; Start 08/31/18 at 21:30 Bisacodyl (Dulcolax) 5 mg DAILY PRN PO .CONSTIPATION; Start 08/31/18 at 21:30 Ondansetron HCl (Zofran Inj) 4 mg Q4H PRN IV NAUSEA AND/OR VOMITING Last administered on 08/31/18at 23:17; Admin Dose 4 MG; Start 08/31/18 at 23:30 Metoclopramide HCl (Reglan) 10 mg Q6 PRN IV NAUSEA AND/OR VOMITING Last administered on 08/31/18at 23:17; Admin Dose 10 MG; Start 08/31/18 at 23:30 Hydrocortisone (Anusol-Hc Supp) 25 mg BID MT ; Start 09/01/18 at 09:00 Docusate Sodium (Colace) 100 mg DAILY PRN PO CONSTIPATION; Start 09/01/18 at 01:00 Cholecalciferol (Vitamin D) 1,000 unit DAILY PO ; Start 09/01/18 at 09:00 Furosemide (Lasix) 10 mg DAILY@0600 PO Last administered on 09/01/18at 06:46; Admin Dose 10 MG; Start 09/01/18 at 06:00 Meclizine HCl (Antivert) 25 mg TID PRN PO NAUSEA AND/OR VOMITING; Start 09/01/18 at 01:00 Insulin Aspart (Novolog Insulin Pen) NOVOLOG *MILD* ALGORI... Q4 SC ; Start 09/01/18 at 01:00 Miscellaneous Information 1 ea NOTE XX ; Start 09/01/18 at 02:00 Glucose (Glutose) 15 gm Q15M PRN PO DECREASED GLUCOSE; Start 09/01/18 at 02:00 Glucose (Glutose) 22.5 gm Q15M PRN PO DECREASED GLUCOSE; Start 09/01/18 at 02:00 Dextrose (D50w Syringe) 25 ml Q15M PRN IV DECREASED GLUCOSE; Start 09/01/18 at 02:00 Dextrose (D50w Syringe) 50 ml Q15M PRN IV DECREASED GLUCOSE; Start 09/01/18 at 02:00 Glucagon (Glucagen) 1 mg Q15M PRN IM DECREASED GLUCOSE; Start 09/01/18 at 02:00 Glucose (Glutose) 15 gm Q15M PRN BUCCAL DECREASED GLUCOSE; Start 09/01/18 at 02:00 Levothyroxine Sodium (Synthroid) 100 mcg DAILY@06 PO Last administered on 09/01/18at 06:46; Admin Dose 100 MCG; Start 09/01/18 at 06:00 Bumetanide (Bumex) 0.5 mg BID DIURETICS PO ; Start 09/01/18 at 06:00; Status UNV Hydralazine HCl (Apresoline) 10 mg Q4H PRN IV ELEVATED BLOOD PRESSURE; Start 09/01/18 at 09:00; Status UNV Atorvastatin Calcium (Lipitor) 80 mg HS PO ; Start 09/01/18 at 21:00; Status UNV Allergies: Coded Allergies: No Known Allergy (Unverified , 08/31/18) Social History Alcohol Use: none Smoking Status: Never smoker Drug Use: none JAE BOX Sep 01, 2018 09:54
[2018-09-01] MEDS: HYDROCORTISONE 25 MG SUPP PR SCH ×2 (09:55→20:24)
[2018-09-01] MEDS: CHOLECALCIFEROL 1,000 UNIT TAB PO SCH (09:55)
[2018-09-01] MEDS: DOCUSATE SODIUM 100 MG CAP PO SCH ×2 (09:55→20:25)
[2018-09-01] MEDS: ASPIRIN 81 MG TAB PO SCH (09:55)
--- NOTE | 2018-09-01 11:17 | PN ---
Date/Time of Note Date/Time of Note DATE: 09/01/18 TIME: 11:17 Assessment/Plan VTE Prophylaxis Risk score (from Ns)>0 risk: 4 SCD applied (from Ns): Yes Pharmacological prophylaxis: NA/contraindicated Pharm contraindication: other Lines/Catheters IV C[facility]from [facility] Saline Lock Urinary Cath still in place: No Assessment/Plan Assessment/Plan 1. Dizziness/ Vertigo - with history of recent stroke, patient being worked up currently for acute CVA - Neurology on board and appreciate recommendations. 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 2. HTN - allow for permissive HTN for 24 hours 3. Hypothyroidism - TSH very elevated and will need to confirm home dose to ensure increase - will continue with 100mcg for now 4. Recent CVA - seems only deficit is confusion but moving all extremities with intact strength - per PT, will benefit from SNF/ARU after discharge 5. Aortic stenosis s/p valve replacement - ECHO ordered 6. NIA - will hold diuretics until NIA improves - Cr slightly better this am. will continue monitoring and avoid nephrotoxic agents 7. Disposition - awaiting MRI results and will continue monitoring renal function Result Diagram: 09/01/18 0503 09/01/18 0503 Results 24hrs Laboratory Tests Test 08/31/18 15:11 08/31/18 15:19 08/31/18 16:42 09/01/18 02:02 Bedside Glucose 139 73 White Blood Count 9.4 Red Blood Count 3.63 L Hemoglobin 11.3 L Hematocrit 36.0 L Mean Corpuscular 99.2 Volume Mean Corpuscular 31.1 Hemoglobin Mean Corpuscular 31.4 L Hemoglobin Concent Red Cell 13.6 Distribution Width Platelet Count 210 Mean Platelet Volume 9.1 Immature 0.600 H Granulocytes % Neutrophils % 61.4 Lymphocytes % 22.4 Monocytes % 8.0 Eosinophils % 7.0 Basophils % 0.6 Nucleated Red Blood 0.0 Cells % Immature 0.060 H Granulocytes # Neutrophils # 5.8 Lymphocytes # 2.1 Monocytes # 0.8 Eosinophils # 0.7 H Basophils # 0.1 Nucleated Red Blood 0.0 Cells # Prothrombin Time 13.6 Prothrombin Time 1.1 Ratio INR International 1.03 Normalized Ratio Activated 31.5 Partial Thromboplast Time Sodium Level 138 Potassium Level 3.4 L Chloride Level 96 L Carbon Dioxide Level 35 H Anion Gap 7 Blood Urea Nitrogen 32 H Creatinine 1.37 H Est Glomerular Filtrat Rate mL/min Glucose Level 129 Calcium Level 9.4 Total Bilirubin 0.6 Direct Bilirubin 0.00 Indirect Bilirubin 0.6 Aspartate Amino 52 H Transf (AST/SGOT) Alanine 29 Aminotransferase (AL T/SGPT) Alkaline Phosphatase 151 H Troponin I < 0.012 Total Protein 8.0 Albumin 3.8 Globulin 4.20 H Albumin/Globulin 0.90 Ratio Lipase 579 H Urine Color STRAW Urine Clarity CLEAR Urine pH 6.0 Urine Specific 1.004 [place] Urine Ketones NEGATIVE Urine Nitrite NEGATIVE Urine Bilirubin NEGATIVE Urine Urobilinogen NEGATIVE Urine Leukocyte NEGATIVE Esterase Urine Microscopic 0 RBC Urine Microscopic 0 WBC Urine Hemoglobin 1+ H Urine Glucose NEGATIVE Urine Total Protein NEGATIVE Test 09/01/18 05:03 09/01/18 05:06 09/01/18 06:45 09/01/18 09:58 White Blood Count 9.2 Red Blood Count 3.32 L Hemoglobin 10.7 L Hematocrit 33.6 L Mean Corpuscular 101.2 H Volume Mean Corpuscular 32.2 Hemoglobin Mean Corpuscular 31.8 L Hemoglobin Concent Red Cell 13.6 Distribution Width Platelet Count 202 Mean Platelet Volume 10.0 Immature 0.800 H Granulocytes % Neutrophils % 58.2 Lymphocytes % 24.0 Monocytes % 9.1 Eosinophils % 7.4 H Basophils % 0.5 Nucleated Red Blood 0.0 Cells % Immature 0.070 H Granulocytes # Neutrophils # 5.4 Lymphocytes # 2.2 Monocytes # 0.8 Eosinophils # 0.7 H Basophils # 0.1 Nucleated Red Blood 0.0 Cells # Sodium Level 144 Potassium Level 4.1 Chloride Level 105 Carbon Dioxide Level 30 Anion Gap 9 Blood Urea Nitrogen 26 H Creatinine 1.14 H Est Glomerular Filtrat Rate mL/min Glucose Level 68 #L Calcium Level 9.2 Total Bilirubin 0.6 Direct Bilirubin 0.00 Indirect Bilirubin 0.6 Aspartate Amino 46 Transf (AST/SGOT) Alanine 29 Aminotransferase (AL T/SGPT) Alkaline Phosphatase 140 H Total Protein 6.9 # Albumin 3.2 L Globulin 3.70 H Albumin/Globulin 0.86 Ratio Thyroid Stimulating 64.900 H 60.600 H Hormone (TSH) Free Thyroxine 1.52 Free 2.71 L Triiodothyronine (T3) pg/mL Hemoglobin A1c 4.9 Magnesium Level 2.3 Triglycerides Level 101 Cholesterol Level 124 LDL Cholesterol, 77 Calculated HDL Cholesterol 27 L Cholesterol/HDL 4.5 Ratio Bedside Glucose 80 163 Subjective 24 Hr Interval Summary Free Text/Dictation Patient still slightly confused but knows name. Asking for water and complaining of lower back discomfort. Exam/Review of Systems Exam Vitals Vital Signs Date Temp Pulse Resp B/P (MAP) Pulse Ox O2 O2 Flow FiO2 Time Delivery Rate 09/01/18 98 3.0 09:24 09/01/18 62 20 Nasal 09:23 Cannula 09/01/18 98.2 144/65 07:32 (91) Intake and Output 08/31/18 08/31/18 09/01/18 1515:00 23:00 07:00 IntakeIntake Total 300 ml BalanceBalance 300 ml Exam General: Patient is lethargic but awakes to touch. no acute distress Neck: Supple Chest: Nontender Lungs: Clear to auscultation bilaterally no crackles rales or wheezing Heart: Normal S1-S2, Regular rhythm and rate. No murmur, S3, or S4 Abdomen: Soft , nontender, nondistended , bowel sounds are present. No guarding no rebound tenderness Extremities: Normal to inspection, no edema no cyanosis Neuro: no focal deficits appreciated. strength intact Results Results 24hrs Laboratory Tests Test 08/31/18 15:11 08/31/18 15:19 08/31/18 16:42 09/01/18 02:02 Bedside Glucose 139 73 White Blood Count 9.4 Red Blood Count 3.63 L Hemoglobin 11.3 L Hematocrit 36.0 L Mean Corpuscular 99.2 Volume Mean Corpuscular 31.1 Hemoglobin Mean Corpuscular 31.4 L Hemoglobin Concent Red Cell 13.6 Distribution Width Platelet Count 210 Mean Platelet Volume 9.1 Immature 0.600 H Granulocytes % Neutrophils % 61.4 Lymphocytes % 22.4 Monocytes % 8.0 Eosinophils % 7.0 Basophils % 0.6 Nucleated Red Blood 0.0 Cells % Immature 0.060 H Granulocytes # Neutrophils # 5.8 Lymphocytes # 2.1 Monocytes # 0.8 Eosinophils # 0.7 H Basophils # 0.1 Nucleated Red Blood 0.0 Cells # Prothrombin Time 13.6 Prothrombin Time 1.1 Ratio INR International 1.03 Normalized Ratio Activated 31.5 Partial Thromboplast Time Sodium Level 138 Potassium Level 3.4 L Chloride Level 96 L Carbon Dioxide Level 35 H Anion Gap 7 Blood Urea Nitrogen 32 H Creatinine 1.37 H Est Glomerular Filtrat Rate mL/min Glucose Level 129 Calcium Level 9.4 Total Bilirubin 0.6 Direct Bilirubin 0.00 Indirect Bilirubin 0.6 Aspartate Amino 52 H Transf (AST/SGOT) Alanine 29 Aminotransferase (AL T/SGPT) Alkaline Phosphatase 151 H Troponin I < 0.012 Total Protein 8.0 Albumin 3.8 Globulin 4.20 H Albumin/Globulin 0.90 Ratio Lipase 579 H Urine Color STRAW Urine Clarity CLEAR Urine pH 6.0 Urine Specific 1.004 [place] Urine Ketones NEGATIVE Urine Nitrite NEGATIVE Urine Bilirubin NEGATIVE Urine Urobilinogen NEGATIVE Urine Leukocyte NEGATIVE Esterase Urine Microscopic 0 RBC Urine Microscopic 0 WBC Urine Hemoglobin 1+ H Urine Glucose NEGATIVE Urine Total Protein NEGATIVE Test 09/01/18 05:03 09/01/18 05:06 09/01/18 06:45 09/01/18 09:58 White Blood Count 9.2 Red Blood Count 3.32 L Hemoglobin 10.7 L Hematocrit 33.6 L Mean Corpuscular 101.2 H Volume Mean Corpuscular 32.2 Hemoglobin Mean Corpuscular 31.8 L Hemoglobin Concent Red Cell 13.6 Distribution Width Platelet Count 202 Mean Platelet Volume 10.0 Immature 0.800 H Granulocytes % Neutrophils % 58.2 Lymphocytes % 24.0 Monocytes % 9.1 Eosinophils % 7.4 H Basophils % 0.5 Nucleated Red Blood 0.0 Cells % Immature 0.070 H Granulocytes # Neutrophils # 5.4 Lymphocytes # 2.2 Monocytes # 0.8 Eosinophils # 0.7 H Basophils # 0.1 Nucleated Red Blood 0.0 Cells # Sodium Level 144 Potassium Level 4.1 Chloride Level 105 Carbon Dioxide Level 30 Anion Gap 9 Blood Urea Nitrogen 26 H Creatinine 1.14 H Est Glomerular Filtrat Rate mL/min Glucose Level 68 #L Calcium Level 9.2 Total Bilirubin 0.6 Direct Bilirubin 0.00 Indirect Bilirubin 0.6 Aspartate Amino 46 Transf (AST/SGOT) Alanine 29 Aminotransferase (AL T/SGPT) Alkaline Phosphatase 140 H Total Protein 6.9 # Albumin 3.2 L Globulin 3.70 H Albumin/Globulin 0.86 Ratio Thyroid Stimulating 64.900 H 60.600 H Hormone (TSH) Free Thyroxine 1.52 Free 2.71 L Triiodothyronine (T3) pg/mL Hemoglobin A1c 4.9 Magnesium Level 2.3 Triglycerides Level 101 Cholesterol Level 124 LDL Cholesterol, 77 Calculated HDL Cholesterol 27 L Cholesterol/HDL 4.5 Ratio Bedside Glucose 80 163 Medications Medication Current Medications Budesonide (Pulmicort (Neb)) 0.5 mg BID HHN Last administered on 09/01/18at 09:22; Admin Dose 0.5 MG; Start 08/31/18 at 21:30 Levalbuterol (Xopenex Neb) 0.63 mg Q4H PRN HHN WHEEZING AND SOB Last adm inistered on 09/01/18at 03:33; Admin Dose 0.63 MG; Start 08/31/18 at 21:30 Lisinopril (Zestril) 20 mg DAILY PO ; Start 09/01/18 at 09:00; Status Hold Magnesium Hydroxide (Milk Of Mag) 30 ml DAILY PRN PO NEEDED; Start 08/31/18 at 21:30 Sertraline HCl (Zoloft) 25 mg DAILY PO ; Start 09/01/18 at 09:00; Status Hold IV Flush (NS 3 ml) 3 ml PER PROTOCOL IV ; Start 08/31/18 at 21:30 Aspirin (Aspirin) 81 mg DAILY PO Last administered on 09/01/18at 09:55; Admin Dose 81 MG; Start 09/01/18 at 09:00 Acetaminophen (Tylenol Tab) 650 mg Q6H PRN PO .PAIN 1-3 OR TEMP; Start 08/31/18 at 21:30 Docusate Sodium (Colace) 100 mg Q12H PO Last administered on 09/01/18at 09:55; Admin Dose 100 MG; Start 08/31/18 at 21:30 Bisacodyl (Dulcolax) 5 mg DAILY PRN PO .CONSTIPATION; Start 08/31/18 at 21:30 Ondansetron HCl (Zofran Inj) 4 mg Q4H PRN IV NAUSEA AND/OR VOMITING Last administered on 08/31/18at 23:17; Admin Dose 4 MG; Start 08/31/18 at 23:30 Metoclopramide HCl (Reglan) 10 mg Q6 PRN IV NAUSEA AND/OR VOMITING Last administered on 08/31/18at 23:17; Admin Dose 10 MG; Start 08/31/18 at 23:30 Hydrocortisone (Anusol-Hc Supp) 25 mg BID MI Last administered on 09/01/18at 09:55; Admin Dose 25 MG; Start 09/01/18 at 09:00 Docusate Sodium (Colace) 100 mg DAILY PRN PO CONSTIPATION; Start 09/01/18 at 01:00 Cholecalciferol (Vitamin D) 1,000 unit DAILY PO Last administered on 09/01/18at 09:55; Admin Dose 1,000 UNIT; Start 09/01/18 at 09:00 Meclizine HCl (Antivert) 25 mg TID PRN PO NAUSEA AND/OR VOMITING; Start 09/01/18 at 01:00 Insulin Aspart (Novolog Insulin Pen) NOVOLOG *MILD* ALGORI... Q4 SC Last admini stered on 09/01/18at 10:12; Admin Dose 1 UNIT; Start 09/01/18 at 01:00 Miscellaneous Information 1 ea NOTE XX ; Start 09/01/18 at 02:00 Glucose (Glutose) 15 gm Q15M PRN PO DECREASED GLUCOSE; Start 09/01/18 at 02:00 Glucose (Glutose) 22.5 gm Q15M PRN PO DECREASED GLUCOSE; Start 09/01/18 at 02:00 Dextrose (D50w Syringe) 25 ml Q15M PRN IV DECREASED GLUCOSE; Start 09/01/18 at 02:00 Dextrose (D50w Syringe) 50 ml Q15M PRN IV DECREASED GLUCOSE; Start 09/01/18 at 02:00 Glucagon (Glucagen) 1 mg Q15M PRN IM DECREASED GLUCOSE; Start 09/01/18 at 02:00 Glucose (Glutose) 15 gm Q15M PRN BUCCAL DECREASED GLUCOSE; Start 09/01/18 at 02:00 Levothyroxine Sodium (Synthroid) 100 mcg DAILY@06 PO Last administered on 09/01/18at 06:46; Admin Dose 100 MCG; Start 09/01/18 at 06:00 Hydralazine HCl (Apresoline) 10 mg Q4H PRN IV ELEVATED BLOOD PRESSURE; Start 09/01/18 at 09:00 Atorvastatin Calcium (Lipitor) 80 mg HS PO ; Start 09/01/18 at 21:00 DEBORAH AHN MD Sep 01, 2018 11:17
[2018-09-01 11:23] VITALS: BP 141/56; PULSE 66; RESP 18
[2018-09-01 15:34] VITALS: BP 150/63; PULSE 80; RESP 18
[2018-09-01 19:19] VITALS: BP 159/68; PULSE 65; RESP 19
[2018-09-01] MEDS: ATORVASTATIN 80 MG TAB PO SCH (20:24)
[2018-09-02] VITALS: BP 137/60; PULSE 63; RESP 20
[2018-09-02] MEDS: INSULIN ASPART [NOVOLOG] 3 ML PEN SC SCH ×6 (01:00→21:00)
[2018-09-02 04:35] VITALS: BP 167/68; PULSE 69; RESP 20
--- NOTE | 2018-09-02 05:07 | CONS ---
DATE OF ADMISSION: 08/31/2018 DATE OF CONSULTATION: 09/01/2018 TYPE OF CONSULTATION: Pulmonary. REASON FOR CONSULTATION: Shortness of breath, dizziness, assess for congestive heart failure, status post aortic valve replacement, assess function. REQUESTING PHYSICIAN: Dr. Cade from the hospitalist service. HISTORY OF PRESENT ILLNESS: Ms. Ambrose is a 73-year-old female with hypertension, diabetes mellitus, dyslipidemia, aortic stenosis, status post aortic valve replacement at [facility] in the [facility] [facility] two months, complicated by a CVA with subsequent dizziness thereafter. Discharged to an [facility] alf facility who now presents to the ER with complaints of shortness of breath, general ized weakness, ongoing dizziness and loss of vision. Initially upon arrival, temperature 98.1, blood pressure 132/46, pulse 56, respiratory rate 18, satting 98%. The patient's labs, white count 9.4. He 1.3, platelet count 210. Sodium 138, potassium 3.4, creatinine 1.37, BUN 32, AST 52, ALT 29. Tro ponin negative. Lipase 579. TSH of 64.9. INR of 1. UA negative. The patient underwent a chest x- ray revealing hyperinflated lungs suggesting COPD, carotid Doppler revealing mild plaquing without ev idence of hemodynamically significant stenoses. 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 The patient's electrocardiogram is not on the chart for my review at is time. The patient admitted to the floor and since being admitted to floor [facility] who are with the patient, pending MRI. The patient continues to have mild shor tness of breath. Denies chest pain, palpitations. She is sedated with loss of vision. PAST MEDICAL HISTORY: As above in HPI. MEDICATIONS CURRENTLY IN HOSPITAL: 1. Lipitor 80 mg at bedtime. 2. Aspirin 81 daily. 3. Hydrocortisone suppositories. 4. Vitamin D. 5. Hydralazine. 6. Synthroid 100 mcg daily. 7. Colace. 8. Bumex 0.5 p.o. x1. 9. Meclizine p.r.n. 10. Insulin sliding scale. 11. Zofran p.r.n. 10. Reglan p.r.n. 11. Pulmicort p.r.n. 12. Xopenex p.r.n. ALLERGIES: NO KNOWN DRUG ALLERGIES. SOCIAL HISTORY: No current tobacco, ETOH or illicit drug use. FAMILY HISTORY: No sudden cardiac or early CAD. REVIEW OF SYSTEMS: As above in HPI. CONSTITUTIONAL: No fevers, chills. PULMONARY: Mild shortness of breath. CARDIOVASCULAR: Shortness of breath. History of aortic valve replacement. GASTROINTESTINAL: No vomiting. GENITOURINARY: No hematuria. MUSCULOSKELETAL: Degenerative joint disease. PSYCHIATRIC: No documented psych history. NEUROLOGIC: Positive CVA with dizziness, loss of vision. PHYSICAL EXAMINATION: VITAL SIGNS: Temperature 98.1, blood pressure was 141/56, pulse 66, respiratory 18, satting 96%. GENERAL: The patient is alert, awake, complaining of dizziness, loss of vision. NECK: JVP approximately 8 ounces water. CHEST: Fair air movement throughout. HEART: Bradycardic, regular rate and rhythm. Normal S1, S2, I/ systolic murmur. Nondisplaced PMI . ABDOMEN: Positive bowel sounds, soft. EXTREMITIES: Trace edema, 1+ pulses bilateral posterior tibial. LABORATORIES: Most recent from today, sodium 144, potassium 4.1, creatinine 1.1, BUN 26, alkaline ph osphatase 140, LDL of 77, HDL 27. TSH of 16.6. White blood cell count 9.2, hematocrit 10.7, platele t count of 202. IMAGING STUDIES: As above in HPI. No further imaging studies for my review at this time. ECG: As above in HPI. No further electrocardiograms for my review at this time. IMPRESSION: 1. Shortness of breath, assess for congestive heart failure. 2. History of aortic valve replacement with a bovine bioprosthetic valve. 3. Cerebrovascular accident, acute, at time of valve replacement with now ongoing dizziness and weak ness, as well as loss of vision per daughter. 4. Hypertension, borderline. 5. Hypothyroidism. 6. Diabetes mellitus. 7. Dyslipidemia. RECOMMENDATIONS: 1. At this time, we would maintain the patient on telemetry monitoring to follow rhythm and rate jenny sely. 2. Continue the patient's aspirin for prophylaxis against further cerebrovascular events and possibl e cardiovascular events. 3. Continue the patient's current statin and adjust it according to a fasting lipid panel to be chec ked. 4. The patient was started on Synthroid, up titrate as necessary and follow a TSH closely. 5. Will hold on antibiotics at this time, the patient is pending MRI to see if there is any acute po rtion to the patient's CVA, and need for permissive hypertension. 6. Check a 2D echo for ejection fraction, wall motion, and assess patient's valvular function. 7. Ongoing neurologic evaluation with, as stated above, pending MRI. Thank you for allowing me to take part in the care of this patient. I will continue to follow her cl osely with you with, further recommendations will be made as the patient progresses through her [facility] clinical course. Dictated By: TIANA LÓPEZ/LEONARDO Conf#: [id number] DID#: [id number] CC: KOFI GILBERT MD; DEBORAH AHN MD; ALEX CADE MD; JAE BOX;*EndCC*
[2018-09-02] MEDS: hydrALAzine 20 MG INJ IV PRN (05:55)
[2018-09-02] MEDS: LEVOTHYROXINE 100 MCG TAB PO SCH (05:55)
[2018-09-02 07:38] VITALS: BP 128/58; PULSE 71; RESP 20
[2018-09-02] MEDS: CHOLECALCIFEROL 1,000 UNIT TAB PO SCH (09:15)
[2018-09-02] MEDS: DOCUSATE SODIUM 100 MG CAP PO SCH ×2 (09:15→21:41)
[2018-09-02] MEDS: HYDROCORTISONE 25 MG SUPP PR SCH ×2 (09:15→21:40)
[2018-09-02] MEDS: ASPIRIN 81 MG TAB PO SCH (09:15)
[2018-09-02] MEDS: BUDESONIDE (NEB) 0.5MG/2ML AMP HHN SCH ×2 (09:28→20:05)
--- NOTE | 2018-09-02 09:47 | PN ---
Date/Time of Note Date/Time of Note DATE: 09/02/18 TIME: 09:41 Assessment/Plan VTE Prophylaxis Risk score (from Nsg)>0 risk: 3 SCD applied (from Nsg): Yes Pharmacological prophylaxis: other Lines/Catheters IV Catheter Type (from Nrsg): Saline Lock Urinary Cath still in place: No Assessment/Plan Assessment/Plan 1. Dizziness/ Vertigo- improving - now complaining of headache but denies any dizziness - Neurology on board and appreciate recommendations. MRI results noted with recent infarcts in the IZAIAH-MCA border zone - PT/OT/ST recommendations appreciated - CT brain results noted with no acute infarcts - CTA noted with thrombosis of the proximal right posterior cerebral artery and will further evaluate with MRI. 2. HTN - stable - will restart Lisinopril today and monitor BP as well as renal function 3. Hypothyroidism - TSH very elevated and will need to confirm home dose to ensure increase - will continue with 100mcg for now and will need to follow up as outpatient for repeat TSH 4. Recent CVA - seems only deficit is confusion but moving all extremities with intact strength - per PT, will benefit from SNF/ARU after discharge 5. Aortic stenosis s/p valve replacement - ECHO results pending - Cardiology consultation appreciated 6. NIA- improving - restarted Lisinopril but will need to monitor for further Cr improvement prior to restarting home diuretics - will continue monitoring and avoid nephrotoxic agents 7. Disposition - restarting Lisinopril and will need to monitor renal function. If tolerating and Cr normalizes to baseline, will need to restart home diuretics prior to d/c - CM on board for SNF/rehab placement Result Diagram: 09/02/18 0512 09/02/18 0511 Results 24hrs Laboratory Tests Test 09/01/18 09:58 09/01/18 11:34 09/01/18 13:07 09/01/18 17:40 Bedside Glucose 163 101 89 103 Test 09/01/18 18:17 09/01/18 20:23 09/02/18 00:29 09/02/18 01:57 Troponin I < 0.012 < 0.012 Bedside Glucose 146 104 Test 09/02/18 05:11 09/02/18 05:12 09/02/18 05:53 Sodium Level 141 Potassium Level 4.1 Chloride Level 104 Carbon Dioxide Level 31 Anion Gap 6 Blood Urea Nitrogen 23 H Creatinine 1.07 H Est Glomerular Filtrat Rate mL/min Glucose Level 84 Calcium Level 9.2 Total Bilirubin 0.7 Direct Bilirubin 0.00 Indirect Bilirubin 0.7 Aspartate Amino 43 Transf (AST/SGOT) Alanine 20 Aminotransferase (AL T/SGPT) Alkaline Phosphatase 148 H Troponin I < 0.012 Total Protein 6.8 Albumin 3.2 L Globulin 3.60 H Albumin/Globulin 0.88 Ratio Triglycerides Level 92 Cholesterol Level 135 LDL Cholesterol, 86 Calculated HDL Cholesterol 31 L Cholesterol/HDL 4.3 Ratio White Blood Count 9.7 Red Blood Count 3.41 L Hemoglobin 10.9 L Hematocrit 34.6 L Mean Corpuscular 101.5 H Volume Mean Corpuscular 32.0 Hemoglobin Mean Corpuscular 31.5 L Hemoglobin Concent Red Cell 13.5 Distribution Width Platelet Count 186 Mean Platelet Volume 9.7 Immature 0.600 H Granulocytes % Neutrophils % 63.1 Lymphocytes % 22.0 Monocytes % 8.1 Eosinophils % 5.4 Basophils % 0.8 Nucleated Red Blood 0.0 Cells % Immature 0.060 H Granulocytes # Neutrophils # 6.1 Lymphocytes # 2.1 Monocytes # 0.8 Eosinophils # 0.5 Basophils # 0.1 Nucleated Red Blood 0.0 Cells # Bedside Glucose 99 Subjective 24 Hr Interval Summary Free Text/Dictation Patient is more awake this am but complaining of pain at based of head. No acute overnight events. Exam/Review of Systems Exam Vitals Vital Signs Date Temp Pulse Resp B/P (MAP) Pulse Ox O2 O2 Flow FiO2 Time Delivery Rate 09/02/18 97 3.0 09:32 09/02/18 72 18 Nasal 09:29 Cannula 09/02/18 98.1 128/58 07:38 (81) Intake and Output 09/01/18 09/01/18 09/02/18 1515:00 23:00 07:00 IntakeIntake Total 480 ml 120 ml 200 ml BalanceBalance 480 ml 120 ml 200 ml Exam General: Patient in mild distress secondary to headache Neck: Supple Lungs: Clear to auscultation bilaterally no crackles rales or wheezing Heart: Normal S1-S2, Regular rhythm and rate. No murmur, S3, or S4 Abdomen: Soft , nontender, nondistended , bowel sounds are present. No guarding no rebound tenderness Extremities: Normal to inspection, no edema no cyanosis Neuro: no focal deficits appreciated. strength intact Results Results 24hrs Laboratory Tests Test 09/01/18 09:58 09/01/18 11:34 09/01/18 13:07 09/01/18 17:40 Bedside Glucose 163 101 89 103 Test 09/01/18 18:17 09/01/18 20:23 09/02/18 00:29 09/02/18 01:57 Troponin I < 0.012 < 0.012 Bedside Glucose 146 104 Test 09/02/18 05:11 09/02/18 05:12 09/02/18 05:53 Sodium Level 141 Potassium Level 4.1 Chloride Level 104 Carbon Dioxide Level 31 Anion Gap 6 Blood Urea Nitrogen 23 H Creatinine 1.07 H Est Glomerular Filtrat Rate mL/min Glucose Level 84 Calcium Level 9.2 Total Bilirubin 0.7 Direct Bilirubin 0.00 Indirect Bilirubin 0.7 Aspartate Amino 43 Transf (AST/SGOT) Alanine 20 Aminotransferase (AL T/SGPT) Alkaline Phosphatase 148 H Troponin I < 0.012 Total Protein 6.8 Albumin 3.2 L Globulin 3.60 H Albumin/Globulin 0.88 Ratio Triglycerides Level 92 Cholesterol Level 135 LDL Cholesterol, 86 Calculated HDL Cholesterol 31 L Cholesterol/HDL 4.3 Ratio White Blood Count 9.7 Red Blood Count 3.41 L Hemoglobin 10.9 L Hematocrit 34.6 L Mean Corpuscular 101.5 H Volume Mean Corpuscular 32.0 Hemoglobin Mean Corpuscular 31.5 L Hemoglobin Concent Red Cell 13.5 Distribution Width Platelet Count 186 Mean Platelet Volume 9.7 Immature 0.600 H Granulocytes % Neutrophils % 63.1 Lymphocytes % 22.0 Monocytes % 8.1 Eosinophils % 5.4 Basophils % 0.8 Nucleated Red Blood 0.0 Cells % Immature 0.060 H Granulocytes # Neutrophils # 6.1 Lymphocytes # 2.1 Monocytes # 0.8 Eosinophils # 0.5 Basophils # 0.1 Nucleated Red Blood 0.0 Cells # Bedside Glucose 99 Medications Medication Current Medications Budesonide (Pulmicort (Neb)) 0.5 mg BID HHN Last administered on 09/02/18at 09:28; Admin Dose 0.5 MG; Start 08/31/18 at 21:30 Levalbuterol (Xopenex Neb) 0.63 mg Q4H PRN HHN WHEEZING AND SOB Last administered on 09/01/18at 03:33; Admin Dose 0.63 MG; Start 08/31/18 at 21:30 Lisinopril (Zestril) 20 mg DAILY PO ; Start 09/01/18 at 09:00; Status Hold Magnesium Hydroxide (Milk Of Mag) 30 ml DAILY PRN PO NEEDED; Start 08/31/18 at 21:30 Sertraline HCl (Zoloft) 25 mg DAILY PO ; Start 09/01/18 at 09:00; Status Hold IV Flush (NS 3 ml) 3 ml PER PROTOCOL IV ; Start 08/31/18 at 21:30 Aspirin (Aspirin) 81 mg DAILY PO Last administered on 09/01/18at 09:55; Admin D ose 81 MG; Start 09/01/18 at 09:00 Acetaminophen (Tylenol Tab) 650 mg Q6H PRN PO .PAIN 1-3 OR TEMP; Start 08/31/18 at 21:30 Docusate Sodium (Colace) 100 mg Q12H PO Last administered on 09/01/18at 20:25; Admin Dose 100 MG; Start 08/31/18 at 21:30 Bisacodyl (Dulcolax) 5 mg DAILY PRN PO .CONSTIPATION; Start 08/31/18 at 21:30 Ondansetron HCl (Zofran Inj) 4 mg Q4H PRN IV NAUSEA AND/OR VOMITING Last administered on 08/31/18at 23:17; Admin Dose 4 MG; Start 08/31/18 at 23:30 Metoclopramide HCl (Reglan) 10 mg Q6 PRN IV NAUSEA AND/OR VOMITING Last administered on 08/31/18at 23:17; Admin Dose 10 MG; Start 08/31/18 at 23:30 Hydrocortisone (Anusol-Hc Supp) 25 mg BID [place] Last administered on 09/01/18at 2 0:24; Admin Dose 25 MG; Start 09/01/18 at 09:00 Docusate Sodium (Colace) 100 mg DAILY PRN PO CONSTIPATION; Start 09/01/18 at 01:00 Cholecalciferol (Vitamin D) 1,000 unit DAILY PO Last administered on 09/01/18at 09:55; Admin Dose 1,000 UNIT; Start 09/01/18 at 09:00 Meclizine HCl (Antivert) 25 mg TID PRN PO NAUSEA AND/OR VOMITING; Start 09/01/18 at 01:00 Insulin Aspart (Novolog Insulin Pen) NOVOLOG *MILD* ALGORI... Q4 SC Last administered on 09/01/18at 10:12; Admin Dose 1 UNIT; Start 09/01/18 at 01:00 Miscellaneous Information 1 ea NOTE XX ; Start 09/01/18 at 02:00 Glucose (Glutose) 15 gm Q15M PRN PO DECREASED GLUCOSE; Start 09/01/18 at 02:00 Glucose (Glutose) 22.5 gm Q15M PRN PO DECREASED GLUCOSE; Start 09/01/18 at 02:00 Dextrose (D50w Syringe) 25 ml Q15M PRN IV DECREASED GLUCOSE; Start 09/01/18 at 02:00 Dextrose (D50w Syringe) 50 ml Q15M PRN IV DECREASED GLUCOSE; Start 09/01/18 at 02:00 Glucagon (Glucagen) 1 mg Q15M PRN IM DECREASED GLUCOSE; Start 09/01/18 at 02:00 Glucose (Glutose) 15 gm Q15M PRN BUCCAL DECREASED GLUCOSE; Start 09/01/18 at 02:00 Levothyroxine Sodium (Synthroid) 100 mcg DAILY@06 PO Last administered on 09/02/18at 05:55; Admin Dose 100 MCG; Start 09/01/18 at 06:00 Hydralazine HCl (Apresoline) 10 mg Q4H PRN IV ELEVATED BLOOD PRESSURE Last administered on 09/02/18at 05:55; Admin Dose 10 MG; Start 09/01/18 at 09:00 Atorvastatin Calcium (Lipitor) 80 mg HS PO Last administered on 09/01/18at 20:24; Admin Dose 80 MG; Start 09/01/18 at 21:00 DEBORAH AHN MD Sep 02, 2018 09:47
--- NOTE | 2018-09-02 11:20 | CONS ---
Assessment/Plan Assessment/Plan Hospital Course (Demo Recall) IMPRESSION: 1. Shortness of breath, assess for congestive heart failure. 2. History of aortic valve replacement with a bovine bioprosthetic valve. 3. Cerebrovascular accident, acute, at time of valve replacement with now ongoing dizziness and weakness, as well as loss of vision per daughter. 4. Hypertension, borderline. 5. Hypothyroidism. 6. Diabetes mellitus. 7. Dyslipidemia. Recc: -Tele -Contnue asa -Continue acei -continue high dose statin -will f/u echo -ongoing neuro eval Consultation Date/Type/Reason Admit Date/Time Aug 31, 2018 at 19:25 Initial Consult Date 09/01/18 Type of Consult Cardiology Reason for Consultation AVR Requesting Provider: ALEX CADE Date/Time of Note DATE: 09/02/18 TIME: 11:17 Exam/Review of Systems Vital Signs Vitals Vital Signs Date Temp Pulse Resp B/P (MAP) Pulse Ox O2 O2 Flow FiO2 Time Delivery Rate 09/02/18 97 3.0 09:32 09/02/18 72 18 Nasal 09:29 Cannula 09/02/18 98.1 128/58 07:38 (81) Intake and Output 09/01/18 09/01/18 09/02/18 1515:00 23:00 07:00 IntakeIntake Total 480 ml 120 ml 200 ml BalanceBalance 480 ml 120 ml 200 ml Exam Exam Review of Systems: CONSTITUTIONAL: No fevers, chills. PULMONARY: No sob CARDIOVASCULAR: No chest pain/palpitations GASTROINTESTINAL: No nausea/vomiting. GENITOURINARY: No hematuria/dysuria. MUSCULOSKELETAL: No myagias/arthalgias. PSYCHIATRIC: The patient denies depression. NEUROLOGIC: dizziness Constitutional: other (sleepig, arousasble) Psych: no complaints Head: normocephalic ENMT: mucosa pink and moist Neck: supple, jvd (9 cm water) Respiratory: diminished breath sounds (at bases/B) Cardiovascular: regular rate and rhythm Gastrointestinal: soft, non-tender Musculoskeletal: muscle weakness (mild) Extremities: edema (none) Neurological: focal weakness Labs Result Diagram: 09/02/18 0512 09/02/18 0511 Results 24hrs Laboratory Tests Test 09/01/18 11:34 09/01/18 13:07 09/01/18 17:40 09/01/18 18:17 Bedside Glucose 101 89 103 Troponin I < 0.012 Test 09/01/18 20:23 09/02/18 00:29 09/02/18 01:57 09/02/18 05:11 Bedside Glucose 146 104 Troponin I < 0.012 < 0.012 Sodium Level 141 Potassium Level 4.1 Chloride Level 104 Carbon Dioxide Level 31 Anion Gap 6 Blood Urea Nitrogen 23 H Creatinine 1.07 H Est Glomerular Filtrat Rate mL/min Glucose Level 84 Calcium Level 9.2 Total Bilirubin 0.7 Direct Bilirubin 0.00 Indirect Bilirubin 0.7 Aspartate Amino 43 Transf (AST/SGOT) Alanine 20 Aminotransferase (AL T/SGPT) Alkaline Phosphatase 148 H Total Protein 6.8 Albumin 3.2 L Globulin 3.60 H Albumin/Globulin 0.88 Ratio Triglycerides Level 92 Cholesterol Level 135 LDL Cholesterol, 86 Calculated HDL Cholesterol 31 L Cholesterol/HDL 4.3 Ratio Test 09/02/18 05:12 09/02/18 05:53 White Blood Count 9.7 Red Blood Count 3.41 L Hemoglobin 10.9 L Hematocrit 34.6 L Mean Corpuscular 101.5 H Volume Mean Corpuscular 32.0 Hemoglobin Mean Corpuscular 31.5 L Hemoglobin Concent Red Cell 13.5 Distribution Width Platelet Count 186 Mean Platelet Volume 9.7 Immature 0.600 H Granulocytes % Neutrophils % 63.1 Lymphocytes % 22.0 Monocytes % 8.1 Eosinophils % 5.4 Basophils % 0.8 Nucleated Red Blood 0.0 Cells % Immature 0.060 H Granulocytes # Neutrophils # 6.1 Lymphocytes # 2.1 Monocytes # 0.8 Eosinophils # 0.5 Basophils # 0.1 Nucleated Red Blood 0.0 Cells # Bedside Glucose 99 Medications Medications Current Medications Budesonide (Pulmicort (Neb)) 0.5 mg BID HHN Last administered on 09/02/18at 09:28; Admin Dose 0.5 MG; Start 08/31/18 at 21:30 Levalbuterol (Xopenex Neb) 0.63 mg Q4H PRN HHN WHEEZING AND SOB Last administered on 09/01/18at 03:33; Admin Dose 0.63 MG; Start 08/31/18 at 21:30 Lisinopril (Zestril) 20 mg DAILY PO ; Start 09/01/18 at 09:00 Magnesium Hydroxide (Milk Of Mag) 30 ml DAILY PRN PO NEEDED; Start 08/31/18 at 21:30 Sertraline HCl (Zoloft) 25 mg DAILY PO ; Start 09/01/18 at 09:00; Status Hold IV Flush (NS 3 ml) 3 ml PER PROTOCOL IV ; Start 08/31/18 at 21:30 Aspirin (Aspirin) 81 mg DAILY PO Last administered on 09/02/18 09:15; Admin Dose 81 MG; Start 09/01/18 at 09:00 Acetaminophen (Tylenol Tab) 650 mg Q6H PRN PO .PAIN 1-3 OR TEMP Last administered on 09/02/18 10:26; Admin Dose 650 MG; Start 08/31/18 at 21:30 Docusate Sodium (Colace) 100 mg Q12H PO Last administered on 09/02/18 09:15; Admin Dose 100 MG; Start 08/31/18 at 21:30 Bisacodyl (Dulcolax) 5 mg DAILY PRN PO .CONSTIPATION; Start 08/31/18 at 21:30 Ondansetron HCl (Zofran Inj) 4 mg Q4H PRN IV NAUSEA AND/OR VOMITING Last administered on 08/31/18 23:17; Admin Dose 4 MG; Start 08/31/18 at 23:30 Metoclopramide HCl (Reglan) 10 mg Q6 PRN IV NAUSEA AND/OR VOMITING Last administered on 08/31/18at 23:17; Admin Dose 10 MG; Start 08/31/18 at 23:30 Hydrocortisone (Anusol-Hc Supp) 25 mg BID [place] Last administered on 09/02/18at 09:15; Admin Dose 25 MG; Start 09/01/18 at 09:00 Docusate Sodium (Colace) 100 mg DAILY PRN PO CONSTIPATION; Start 09/01/18 at 01:00 Cholecalciferol (Vitamin D) 1,000 unit DAILY PO Last administered on 09/02/18 09:15; Admin Dose 1,000 UNIT; Start 09/01/18 at 09:00 Meclizine HCl (Antivert) 25 mg TID PRN PO NAUSEA AND/OR VOMITING; Start 08/07 08/24 at 01:00 Miscellaneous Information 1 ea NOTE XX ; Start 09/01/18 at 02:00 Glucose (Glutose) 15 gm Q15M PRN PO DECREASED GLUCOSE; Start 09/01/18 at 02:00 Glucose (Glutose) 22.5 gm Q15M PRN PO DECREASED GLUCOSE; Start 09/01/18 at 02:00 Dextrose (D50w Syringe) 25 ml Q15M PRN IV DECREASED GLUCOSE; Start 09/01/18 at 02:00 Dextrose (D50w Syringe) 50 ml Q15M PRN IV DECREASED GLUCOSE; Start 09/01/18 at 02:00 Glucagon (Glucagen) 1 mg Q15M PRN IM DECREASED GLUCOSE; Start 09/01/18 at 02:00 Glucose (Glutose) 15 gm Q15M PRN BUCCAL DECREASED GLUCOSE; Start 09/01/18 at 02:00 Levothyroxine Sodium (Synthroid) 100 mcg DAILY@06 PO Last administered on 09/02/18at 05:55; Admin Dose 100 MCG; Start 09/01/18 at 06:00 Hydralazine HCl (Apresoline) 10 mg Q4H PRN IV ELEVATED BLOOD PRESSURE Last administered on 09/02/18at 05:55; Admin Dose 10 MG; Start 09/01/18 at 09:00 Atorvastatin Calcium (Lipitor) 80 mg HS PO Last administered on 09/01/18at 20:24; Admin Dose 80 MG; Start 09/01/18 at 21:00 Insulin Aspart (Novolog Insulin Pen) NOVOLOG *MILD* ALGORI... AC MEALS AND BEDTIME SC ; Start 09/02/18 at 12:00 TIANA PENA Sep 02, 2018 11:20
[2018-09-02 11:40] VITALS: BP 135/61; PULSE 70; RESP 18
--- NOTE | 2018-09-02 14:07 | RADRPT ---
Echocardiogram Report Patient Name: JILLIAN STOKESPatient ID: [id number] : 1945 (73y 4m)Study Date: 09/02/2018 7:59:17 AM Gender: FAccession #: [id number] Tech: MAC Location: [facility] Ref.Physician: ALEX CADE Height(Cm): 157 BSA: 1.72Weight(Kg): 67.6 Quality: AdequateOrder Physician: ALEX CADE Account #: Procedures: Echocardiographic Report: Transthoracic echocardiogram with complete 2D, M-Mode, and doppler examination. Indications: Cerebrovascular Accident. Measurements: 2D/M Mode Doppler Measurement Value Normal Range Measurement Value Normal Range LA Volume 79.3 [ 22.0 - 52.0 ] ml WILTON VTI 1.5 [ 2.0 - 4.0 ] cm2 LA Volume Index 47 [ 16 - 34 ] ml/m2 AV Mean [place] 1.5 [ 70.0 - 90.0 ] cm/ sec LVIDd 2D 4.0 [ 3.8 - 5.2 ] cm AV Mean PG 11.0 [ 2.0 - 4.0 ] mmHg LVIDs 2D 2.7 [ 2.2 - 3.5 ] cm AV VTI 54.5 cm LVPWd 2D 1.1 [ 0.6 - 0.9 ] cm AI Peak PG 7.0 mmHg IVSd 2D 1.1 [ 0.6 - 0.9 ] cm AI Peak Leland 1.3 cm/sec EDV 2D 71.3 [ 46.0 - 106.0 ] ml AI PHT 585.0 msec ESV 2D 26.0 [ 14.0 - 42.0 ] ml LVOT Mean [place]eland 0.7 [ 60.0 - 80.0 ] cm/ sec EF 2D 63.5 [ 54.0 - 74.0 ] percent LVOT Mean PG 2.0 [ 1.0 - 3.0 ] mmHg LA Dimen 2D 4.1 [ 2.7 - 3.8 ] cm LVOT Peak Leland 0.9 [ 70.0 - 110.0 ] cm /sec LVOT Diam 2.0 [ 2.1 - 2.5 ] cm LVOT Peak PG 4.0 [ 2.0 - 6.0 ] mmHg LVOT VTI 25.7 [ 20.0 - 30.0 ] cm MV E Peak [place] 1.1 [ 60.0 - 130.0 ] cm /sec MV A Peak [place] 0.7 [ 100.0 - 120.0 ] c m/sec MV E/A 1.7 [ 0.8 - 1.5 ] ratio MV PHT 76.0 [ 20.0 - 100.0 ] ms ec MV Decel Time 261 [ 104 - 258 ] msec MV Decel [place] 4 Lat E` Leland 0.1 [ 10.0 - 15.0 ] cm/ sec Lateral E/E` 10.8 [ 1.0 - 2.0 ] ratio Med E` Leland 0.1 cm/sec MV E/A 1.7 [ 0.8 - 1.5 ] ratio MVA PHT 2.9 [ 2.0 - 4.0 ] cm2 TR Peak Leland 2.4 [ 100.0 - 280.0 ] c m/sec TR Peak PG 23.0 mmHg RVSP 26.0 [ 10.0 - 36.0 ] mmH g RA Pressure 3.0 mmHg Findings: Left Ventricle: Normal left ventricular systolic function. Normal left ventricular cavity size. Mild to moderate concentric left ventricular hypertrophy. Ejection fraction is visually estimated at 60-65 %. Abnormal Diastolic Function. E/E'= 20. Right Ventricle: Normal right ventricular size. Normal right ventricular systolic function. Left Atrium: There is severe enlargement of left atrium appreciated best by ALLYN 45 ml/m2. Right Atrium: There is mild enlargement of right atrium. NOTE: Bubble study done right sided structures appear to fill without obvious bubbles noted in left side (sequence. Atrial Septum: Normal atrial septum. Mitral Valve: Mild mitral annular calcification. Mild mitral valve regurgitation. Aortic Valve: Aortic Valve Bio Prosthesis. Aortic valve Max velocity 2.30 m/sec. Max PG 22.00 mmHg. Mean PG 11.00 mmHg. Aortic valve area 1.48 cm2. Trace to mild aortic valve regurgitation. Tricuspid Valve: Normal appearance of the tricuspid valve. The estimated Peak RVSP is 20 mmHg. There is mild tricuspid regurgitation. Pulmonic Valve: Normal pulmonic valve appearance. Pericardium: Normal pericardium with no significant pericardial effusion. Aorta: Normal aortic root. IVC: Normal size and normal respiratory collapse consistent with normal right atrial pressure. Pulmonary Artery: Normal pulmonary artery size. Conclusions: Normal left ventricular systolic function. Normal left ventricular cavity size. Mild to moderate concentric left ventricular hypertrophy. Ejection fraction is visually estimated at 60-65 %. Abnormal Diastolic Function. E/E'= 20. There is severe enlargement of left atrium appreciated best by ALLYN 45 ml/m2. There is mild enlargement of right atrium. NOTE: Bubble study done negative for atrial septal defect/PFO. Mild mitral annular calcification. Mild mitral valve regurgitation. Aortic Valve Bio Prosthesis. Aortic valve Max velocity 2.30 m/sec. Max PG 22.00 mmHg. Mean PG 11.00 mmHg. Aortic valve area 1.48 cm2. Trace to mild aortic valve regurgitation. Normal appearance of the tricuspid valve. The estimated Peak RVSP is 20 mmHg. There is mild tricuspid regurgitation. Electronically Signed By: Michael Alvarez 2018-09-02 14:05:48 PDT
[2018-09-02 15:36] VITALS: BP 121/66; PULSE 68; RESP 17
[2018-09-02] MEDS: ONDANSETRON 4 MG INJ IV PRN (17:39)
[2018-09-02 20:19] VITALS: BP 164/71; PULSE 68; RESP 20
[2018-09-02] MEDS: ATORVASTATIN 80 MG TAB PO SCH (21:40)
[2018-09-03] VITALS (7 sets, daily range): BP systolic 131–173; BP diastolic 59–74; PULSE 65–75; RESP 18–20
[2018-09-03] MEDS: hydrALAzine 20 MG INJ IV PRN (01:02)
[2018-09-03] MEDS: LEVOTHYROXINE 100 MCG TAB PO SCH (06:20)
[2018-09-03] MEDS: INSULIN ASPART [NOVOLOG] 3 ML PEN SC SCH ×4 (07:00→21:00)
[2018-09-03] MEDS: BUDESONIDE (NEB) 0.5MG/2ML AMP HHN SCH ×2 (07:59→21:29)
[2018-09-03] MEDS: ASPIRIN 81 MG TAB PO SCH (08:17)
[2018-09-03] MEDS: CHOLECALCIFEROL 1,000 UNIT TAB PO SCH (08:17)
[2018-09-03] MEDS: LISINOPRIL 20 MG TAB PO SCH (08:18)
[2018-09-03] MEDS: HYDROCORTISONE 25 MG SUPP PR SCH ×2 (08:18→21:03)
[2018-09-03] MEDS: SERTRALINE 50 MG TAB PO SCH (08:18)
[2018-09-03] MEDS: ONDANSETRON 4 MG INJ IV PRN (08:19)
--- NOTE | 2018-09-03 09:07 | RADRPT ---
Vent Rate: 67 bpm RR Interval: 900 msec [place] Interval: 188 msec QRS Duration: 93 msec QT Interval: 419 msec QTC Interval: 442 msec P-R-T [place]: 82 - 48 - 19 degrees Sinus rhythm...normal P axis, V-rate 50- 99 Borderline T abnormalities, diffuse leads...T flat/neg Electronically Signed By: Norris Ross
--- NOTE | 2018-09-03 09:50 | PN ---
Date/Time of Note Date/Time of Note DATE: 09/03/18 TIME: 09:45 Objective Vitals Vital Signs Date Temp Pulse Resp B/P (MAP) Pulse Ox O2 O2 Flow FiO2 Time Delivery Rate 09/03/18 3.0 08:00 09/03/18 76 18 98 Nasal 08:00 Cannula 09/03/18 97.9 148/67 07:43 (94) Intake and Output 09/02/18 09/02/18 09/03/18 1515:00 23:00 07:00 IntakeIntake Total 320 ml 240 ml BalanceBalance 320 ml 240 ml Results Result Diagram: 09/03/18 0450 09/03/18 0450 Medications Medications Current Medications Budesonide (Pulmicort (Neb)) 0.5 mg BID HHN Last administered on 09/03/18 07:59; Admin Dose 0.5 MG; Start 08/31/18 at 21:30 Levalbuterol (Xopenex Neb) 0.63 mg Q4H PRN HHN WHEEZING AND SOB Last administered on 09/01/18 03:33; Admin Dose 0.63 MG; Start 08/31/18 at 21:30 Lisinopril (Zestril) 20 mg DAILY PO Last administered on 09/03/18 08:18; Admin Dose 20 MG; Start 09/01/18 at 09:00 Magnesium Hydroxide (Milk Of Mag) 30 ml DAILY PRN PO NEEDED; Start 08/31/18 at 21:30 Sertraline HCl (Zoloft) 25 mg DAILY PO Last administered on 09/03/18 08:18; Admin Dose 25 MG; Start 09/01/18 at 09:00 IV Flush (NS 3 ml) 3 ml PER PROTOCOL IV ; Start 08/31/18 at 21:30 Aspirin (Aspirin) 81 mg DAILY PO Last administered on 09/03/18 08:17; Admin Dose 81 MG; Start 09/01/18 at 09:00 Acetaminophen (Tylenol Tab) 650 mg Q6H PRN PO .PAIN 1-3 OR TEMP Last administered on 09/02/18 10:26; Admin Dose 650 MG; Start 08/31/18 at 21:30 Docusate Sodium (Colace) 100 mg Q12H PO Last administered on 09/02/18 21:41; Admin Dose 100 MG; Start 08/31/18 at 21:30 Bisacodyl (Dulcolax) 5 mg DAILY PRN PO .CONSTIPATION; Start 08/31/18 at 21:30 Ondansetron HCl (Zofran Inj) 4 mg Q4H PRN IV NAUSEA AND/OR VOMITING Last administered on 09/03/18at 08:19; Admin Dose 4 MG; Start 08/31/18 at 23:30 Metoclopramide HCl (Reglan) 10 mg Q6 PRN IV NAUSEA AND/OR VOMITING Last administered on 08/31/18at 23:17; Admin Dose 10 MG; Start 08/31/18 at 23:30 Hydrocortisone (Anusol-Hc Supp) 25 mg BID DC Last administered on 09/03/18at 08:18; Admin Dose 25 MG; Start 09/01/18 at 09:00 Docusate Sodium (Colace) 100 mg DAILY PRN PO CONSTIPATION; Start 09/01/18 at 01:00 Cholecalciferol (Vitamin D) 1,000 unit DAILY PO Last administered on 09/03/18at 08:17; Admin Dose 1,000 UNIT; Start 09/01/18 at 09:00 Meclizine HCl (Antivert) 25 mg TID PRN PO NAUSEA AND/OR VOMITING; Start 09/01/18 at 01:00 Miscellaneous Information 1 ea NOTE XX ; Start 09/01/18 at 02:00 Glucose (Glutose) 15 gm Q15M PRN PO DECREASED GLUCOSE; Start 09/01/18 at 02:00 Glucose (Glutose) 22.5 gm Q15M PRN PO DECREASED GLUCOSE; Start 09/01/18 at 02:00 Dextrose (D50w Syringe) 25 ml Q15M PRN IV DECREASED GLUCOSE; Start 09/01/18 at 02:00 Dextrose (D50w Syringe) 50 ml Q15M PRN IV DECREASED GLUCOSE; Start 09/01/18 at 02:00 Glucagon (Glucagen) 1 mg Q15M PRN IM DECREASED GLUCOSE; Start 09/01/18 at 02:00 Glucose (Glutose) 15 gm Q15M PRN BUCCAL DECREASED GLUCOSE; Start 09/01/18 at 02:00 Levothyroxine Sodium (Synthroid) 100 mcg DAILY@06 PO Last administered on 09/03/18at 06:20; Admin Dose 100 MCG; Start 09/01/18 at 06:00 Hydralazine HCl (Apresoline) 10 mg Q4H PRN IV ELEVATED BLOOD PRESSURE Last administered on 09/03/18at 01:02; Admin Dose 10 MG; Start 09/01/18 at 09:00 Atorvastatin Calcium (Lipitor) 80 mg HS PO Last administered on 09/02/18at 21:40; Admin Dose 80 MG; Start 09/01/18 at 21:00 Insulin Aspart (Novolog Insulin Pen) NOVOLOG *MILD* ALGORI... AC MEALS AND BEDTIME SC ; Start 09/02/18 at 12:00 Pantoprazole (Protonix Iv) 40 mg DAILY@06 IV ; Start 09/03/18 at 10:00; Status UNV Sucralfate (Carafate Susp) 1 gm QID PO ; Start 09/03/18 at 13:00; Status UNV VTE Prophylaxis Risk score (from Nsg)>0 risk: 3 SCD applied (from Ns): Yes Lines/Catheters IV Catheter Type: Jerez in Place: No LIZZ BOJORQUEZ Sep 03, 2018 09:50
[2018-09-03] MEDS: DOCUSATE SODIUM 100 MG CAP PO SCH ×2 (10:22→21:03)
[2018-09-03] MEDS: PANTOPRAZOLE 40 MG INJ IV SCH (10:22)
--- NOTE | 2018-09-03 11:32 | CONS ---
Assessment/Plan Assessment/Plan Hospital Course (Demo Recall) IMPRESSION: 1. Shortness of breath, assess for congestive heart failure.-Echo tis admit 09/02 EF 60-65 2. History of aortic valve replacement with a bovine bioprosthetic valve.- proper function by echo 3. Cerebrovascular accident, acute, at time of valve replacement with now ongoing dizziness and weakness, as well as loss of vision per daughter. 4. Hypertension, borderline. 5. Hypothyroidism. 6. Diabetes mellitus. 7. Dyslipidemia. 8. Renal failure-improving Recc: -Tele -Contnue asa -Continue acei -continue high dose statin -ongoing neuro eval -consider gentle lasix diuresis but must follow creatnine closely Consultation Date/Type/Reason Admit Date/Time Aug 31, 2018 at 19:25 Initial Consult Date 09/01/18 Type of Consult Cardiology Reason for Consultation AVR Requesting Provider: ALEX CADE Date/Time of Note DATE: 09/03/18 TIME: 11:29 Exam/Review of Systems Vital Signs Vitals Vital Signs Date Temp Pulse Resp B/P (MAP) Pulse Ox O2 O2 Flow FiO2 Time Delivery Rate 09/03/18 97.7 73 18 131/59 100 11:07 (83) 09/03/18 Nasal 2.0 08:18 Cannula Intake and Output 09/02/18 09/02/18 09/03/18 1515:00 23:00 07:00 IntakeIntake Total 320 ml 240 ml BalanceBalance 320 ml 240 ml Exam Exam Review of Systems: CONSTITUTIONAL: No fevers, chills. PULMONARY: No sob CARDIOVASCULAR: No chest pain/palpitations GASTROINTESTINAL: No nausea/vomiting. GENITOURINARY: No hematuria/dysuria. MUSCULOSKELETAL: No myagias/arthalgias. PSYCHIATRIC: The patient denies depression. NEUROLOGIC: focal weakness Constitutional: alert Psych: no complaints Head: normocephalic ENMT: mucosa pink and moist Neck: supple, jvd (9 cm water) Respiratory: clear to auscultation Cardiovascular: regular rate and rhythm Gastrointestinal: soft, non-tender Musculoskeletal: muscle tone (normal) Extremities: edema (none) Neurological: focal weakness Labs Result Diagram: 09/03/18 0450 09/03/18 0450 Results 24hrs Laboratory Tests Test 09/02/18 11:57 09/02/18 17:33 09/02/18 21:04 09/03/18 04:50 Bedside Glucose 116 95 128 White Blood Count 10.0 Red Blood Count 3.60 L Hemoglobin 11.4 L Hematocrit 36.2 L Mean Corpuscular 100.6 Volume Mean Corpuscular 31.7 Hemoglobin Mean Corpuscular 31.5 L Hemoglobin Concent Red Cell 13.4 Distribution Width Platelet Count 195 Mean Platelet Volume 9.3 Immature 0.500 H Granulocytes % Neutrophils % 58.8 Lymphocytes % 23.2 Monocytes % 10.0 Eosinophils % 6.8 Basophils % 0.7 Nucleated Red Blood 0.0 Cells % Immature 0.050 H Granulocytes # Neutrophils # 5.9 Lymphocytes # 2.3 Monocytes # 1.0 H Eosinophils # 0.7 H Basophils # 0.1 Nucleated Red Blood 0.0 Cells # Sodium Level 142 Potassium Level 3.7 Chloride Level 105 Carbon Dioxide Level 30 Anion Gap 7 Blood Urea Nitrogen 26 H Creatinine 1.12 H Est Glomerular Filtrat Rate mL/min Glucose Level 98 Calcium Level 9.2 Magnesium Level 2.2 Total Bilirubin 0.8 Direct Bilirubin 0.00 Indirect Bilirubin 0.8 Aspartate Amino 43 Transf (AST/SGOT) Alanine 22 Aminotransferase (AL T/SGPT) Alkaline Phosphatase 151 H Total Protein 7.0 Albumin 3.3 Globulin 3.70 H Albumin/Globulin 0.89 Ratio Lipase 245 Test 09/03/18 06:26 Bedside Glucose 99 Medications Medications Current Medications Budesonide (Pulmicort (Neb)) 0.5 mg BID HHN Last administered on 09/03/18at 07:59; Admin Dose 0.5 MG; Start 08/31/18 at 21:30 Levalbuterol (Xopenex Neb) 0.63 mg Q4H PRN HHN WHEEZING AND SOB Last administered on 09/01/18at 03:33; Admin Dose 0.63 MG; Start 08/31/18 at 21:30 Lisinopril (Zestril) 20 mg DAILY PO Last administered on 09/03/18at 08:18; Admin Dose 20 MG; Start 09/01/18 at 09:00 Magnesium Hydroxide (Milk Of Mag) 30 ml DAILY PRN PO NEEDED; Start 08/31/18 at 21:30 Sertraline HCl (Zoloft) 25 mg DAILY PO Last administered on 09/03/18at 08:18; Admin Dose 25 MG; Start 09/01/18 at 09:00 IV Flush (NS 3 ml) 3 ml PER PROTOCOL IV ; Start 08/31/18 at 21:30 Aspirin (Aspirin) 81 mg DAILY PO Last administered on 09/03/18 08:17; Admin Dose 81 MG; Start 09/01/18 at 09:00 Acetaminophen (Tylenol Tab) 650 mg Q6H PRN PO .PAIN 1-3 OR TEMP Last administered on 09/02/18 10:26; Admin Dose 650 MG; Start 08/31/18 at 21:30 Docusate Sodium (Colace) 100 mg Q12H PO Last administered on 09/03/18 10:22; Admin Dose 100 MG; Start 08/31/18 at 21:30 Bisacodyl (Dulcolax) 5 mg DAILY PRN PO .CONSTIPATION; Start 08/31/18 at 21:30 Ondansetron HCl (Zofran Inj) 4 mg Q4H PRN IV NAUSEA AND/OR VOMITING Last administered on 09/03/18at 08:19; Admin Dose 4 MG; Start 08/31/18 at 23:30 Metoclopramide HCl (Reglan) 10 mg Q6 PRN IV NAUSEA AND/OR VOMITING Last administered on 08/31/18at 23:17; Admin Dose 10 MG; Start 08/31/18 at 23:30 Hydrocortisone (Anusol-Hc Supp) 25 mg BID ID Last administered on 09/03/18 08:18; Admin Dose 25 MG; Start 09/01/18 at 09:00 Docusate Sodium (Colace) 100 mg DAILY PRN PO CONSTIPATION; Start 09/01/18 at 01:00 Cholecalciferol (Vitamin D) 1,000 unit DAILY PO Last administered on 09/03/18 08:17; Admin Dose 1,000 UNIT; Start 09/01/18 at 09:00 Meclizine HCl (Antivert) 25 mg TID PRN PO NAUSEA AND/OR VOMITING; Start 09/01/18 at 01:00 Miscellaneous Information 1 ea NOTE XX ; Start 09/01/18 at 02:00 Glucose (Glutose) 15 gm Q15M PRN PO DECREASED GLUCOSE; Start 09/01/18 at 02:00 Glucose (Glutose) 22.5 gm Q15M PRN PO DECREASED GLUCOSE; Start 09/01/18 at 02:00 Dextrose (D50w Syringe) 25 ml Q15M PRN IV DECREASED GLUCOSE; Start 09/01/18 at 02:00 Dextrose (D50w Syringe) 50 ml Q15M PRN IV DECREASED GLUCOSE; Start 09/01/18 at 02:00 Glucagon (Glucagen) 1 mg Q15M PRN IM DECREASED GLUCOSE; Start 09/01/18 at 02:00 Glucose (Glutose) 15 gm Q15M PRN BUCCAL DECREASED GLUCOSE; Start 09/01/18 at 02:00 Levothyroxine Sodium (Synthroid) 100 mcg DAILY@06 PO Last administered on 09/03/18at 06:20; Admin Dose 100 MCG; Start 09/01/18 at 06:00 Hydralazine HCl (Apresoline) 10 mg Q4H PRN IV ELEVATED BLOOD PRESSURE Last administered on 09/03/18at 01:02; Admin Dose 10 MG; Start 09/01/18 at 09:00 Atorvastatin Calcium (Lipitor) 80 mg HS PO Last administered on 09/02/18at 21:40; Admin Dose 80 MG; Start 09/01/18 at 21:00 Insulin Aspart (Novolog Insulin Pen) NOVOLOG *MILD* ALGORI... AC MEALS AND BEDTIME SC ; Start 09/02/18 at 12:00 Pantoprazole (Protonix Iv) 40 mg DAILY@06 IV Last administered on 09/03/18at 10:22; Admin Dose 40 MG; Start 09/03/18 at 10:00 Sucralfate (Carafate Susp) 1 gm QID PO ; Start 09/03/18 at 13:00 Acetaminophen/ Hydrocodone Bitart ([place] (5/325)) 1 tab Q4H PRN PO MODERATE PAIN LEVEL 4-6; Start 09/03/18 at 10:00 Scopolamine (Transderm-Scop) 1 patch Q72H TRANSDERM ; Start 09/03/18 at 11:30 TIANA PENA Sep 03, 2018 11:32
[2018-09-03] MEDS: SCOPOLAMINE 1.5 MG PATCH TRANSDERM SCH (12:07)
[2018-09-03] MEDS: SUCRALFATE (100 MG/ML) 10ML CUP PO SCH ×3 (12:07→21:03)
--- NOTE | 2018-09-03 12:49 | CONS ---
Assessment/Plan Assessment/Plan Assessment/Plan (Recall) 73 F c/ multiple comorbidities, including kin-operative strokes 6 weeks ago...who presents for evaluation of nonspecific dizziness. The clinical picture is atypical for an acute cerebrovascular process.. Noted to be in NIA on arrival, which is a potential contributor.. MRI brain confirms multifocal chronic infarcts.. Punctate diffusion bright lesions anteriorly are without adc correlate, inconsistent w/ acute ischemia. 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 P: Agree w/ asa/lipitor daily for secondary stroke prevention Continued medical management and supportive care per primary PT/OT/ST as necessary Other management and supportive care per primary Will follow clinically Consultation Date/Type/Reason Admit Date/Time Aug 31, 2018 at 19:25 Type of Consult Neurology Reason for Consultation dizziness Requesting Provider: ALEX CADE Date/Time of Note DATE: 09/03/18 TIME: 12:46 24 HR Interval Summary Free Text/Dictation s/p MRI brain Exam/Review of Systems Exam Vitals Vital Signs Date Temp Pulse Resp B/P (MAP) Pulse Ox O2 O2 Flow FiO2 Time Delivery Rate 09/03/18 97.7 73 18 131/59 100 11:07 (83) 09/03/18 Nasal 2.0 08:18 Cannula Intake and Output 09/02/18 09/02/18 09/03/18 1515:00 23:00 07:00 IntakeIntake Total 320 ml 240 ml BalanceBalance 320 ml 240 ml Results Result Diagram: 09/03/18 0450 09/03/18 0450 Results 24hrs Laboratory Tests Test 09/02/18 17:33 09/02/18 21:04 09/03/18 04:50 09/03/18 06:26 Bedside Glucose 95 128 99 White Blood Count 10.0 Red Blood Count 3.60 L Hemoglobin 11.4 L Hematocrit 36.2 L Mean Corpuscular 100.6 Volume Mean Corpuscular 31.7 Hemoglobin Mean Corpuscular 31.5 L Hemoglobin Concent Red Cell 13.4 Distribution Width Platelet Count 195 Mean Platelet Volume 9.3 Immature 0.500 H Granulocytes % Neutrophils % 58.8 Lymphocytes % 23.2 Monocytes % 10.0 Eosinophils % 6.8 Basophils % 0.7 Nucleated Red Blood 0.0 Cells % Immature 0.050 H Granulocytes # Neutrophils # 5.9 Lymphocytes # 2.3 Monocytes # 1.0 H Eosinophils # 0.7 H Basophils # 0.1 Nucleated Red Blood 0.0 Cells # Sodium Level 142 Potassium Level 3.7 Chloride Level 105 Carbon Dioxide Level 30 Anion Gap 7 Blood Urea Nitrogen 26 H Creatinine 1.12 H Est Glomerular Filtrat Rate mL/min Glucose Level 98 Calcium Level 9.2 Magnesium Level 2.2 Total Bilirubin 0.8 Direct Bilirubin 0.00 Indirect Bilirubin 0.8 Aspartate Amino 43 Transf (AST/SGOT) Alanine 22 Aminotransferase (AL T/SGPT) Alkaline Phosphatase 151 H Total Protein 7.0 Albumin 3.3 Globulin 3.70 H Albumin/Globulin 0.89 Ratio Lipase 245 Test 09/03/18 12:06 Bedside Glucose 147 Medications Medication Current Medications Budesonide (Pulmicort (Neb)) 0.5 mg BID HHN Last administered on 09/03/18 07:59; Admin Dose 0.5 MG; Start 08/31/18 at 21:30 Levalbuterol (Xopenex Neb) 0.63 mg Q4H PRN HHN WHEEZING AND SOB Last administered on 09/01/18 03:33; Admin Dose 0.63 MG; Start 08/31/18 at 21:30 Lisinopril (Zestril) 20 mg DAILY PO Last administered on 09/03/18 08:18; Admin Dose 20 MG; Start 09/01/18 at 09:00 Magnesium Hydroxide (Milk Of Mag) 30 ml DAILY PRN PO NEEDED; Start 08/31/18 at 21:30 Sertraline HCl (Zoloft) 25 mg DAILY PO Last administered on 09/03/18 08:18; Admin Dose 25 MG; Start 09/01/18 at 09:00 IV Flush (NS 3 ml) 3 ml PER PROTOCOL IV ; Start 08/31/18 at 21:30 Aspirin (Aspirin) 81 mg DAILY PO Last administered on 09/03/18 08:17; Admin Dose 81 MG; Start 09/01/18 at 09:00 Acetaminophen (Tylenol Tab) 650 mg Q6H PRN PO .PAIN 1-3 OR TEMP Last administered on 09/02/18 10:26; Admin Dose 650 MG; Start 08/31/18 at 21:30 Docusate Sodium (Colace) 100 mg Q12H PO Last administered on 7/29/19at 10:22; Admin Dose 100 MG; Start 08/31/18 at 21:30 Bisacodyl (Dulcolax) 5 mg DAILY PRN PO .CONSTIPATION; Start 08/31/18 at 21:30 Ondansetron HCl (Zofran Inj) 4 mg Q4H PRN IV NAUSEA AND/OR VOMITING Last administered on 09/03/18at 08:19; Admin Dose 4 MG; Start 08/31/18 at 23:30 Metoclopramide HCl (Reglan) 10 mg Q6 PRN IV NAUSEA AND/OR VOMITING Last administered on 08/31/18at 23:17; Admin Dose 10 MG; Start 08/31/18 at 23:30 Hydrocortisone (Anusol-Hc Supp) 25 mg BID ND Last administered on 09/03/18at 08:18; Admin Dose 25 MG; Start 09/01/18 at 09:00 Docusate Sodium (Colace) 100 mg DAILY PRN PO CONSTIPATION; Start 09/01/18 at 0 1:00 Cholecalciferol (Vitamin D) 1,000 unit DAILY PO Last administered on 09/03/18at 08:17; Admin Dose 1,000 UNIT; Start 09/01/18 at 09:00 Meclizine HCl (Antivert) 25 mg TID PRN PO NAUSEA AND/OR VOMITING; Start 09/01/18 at 01:00 Miscellaneous Information 1 ea NOTE XX ; Start 09/01/18 at 02:00 Glucose (Glutose) 15 gm Q15M PRN PO DECREASED GLUCOSE; Start 09/01/18 at 02:00 Glucose (Glutose) 22.5 gm Q15M PRN PO DECREASED GLUCOSE; Start 09/01/18 at 02:00 Dextrose (D50w Syringe) 25 ml Q15M PRN IV DECREASED GLUCOSE; Start 09/01/18 at 02:00 Dextrose (D50w Syringe) 50 ml Q15M PRN IV DECREASED GLUCOSE; Start 09/01/18 at 02:00 Glucagon (Glucagen) 1 mg Q15M PRN IM DECREASED GLUCOSE; Start 09/01/18 at 02:00 Glucose (Glutose) 15 gm Q15M PRN BUCCAL DECREASED GLUCOSE; Start 09/01/18 at 02:00 Levothyroxine Sodium (Synthroid) 100 mcg DAILY@06 PO Last administered on 09/03/18at 06:20; Admin Dose 100 MCG; Start 09/01/18 at 06:00 Hydralazine HCl (Apresoline) 10 mg Q4H PRN IV ELEVATED BLOOD PRESSURE Last administered on 09/03/18 01:02; Admin Dose 10 MG; Start 09/01/18 at 09:00 Atorvastatin Calcium (Lipitor) 80 mg HS PO Last administered on 09/02/18 21:40; Admin Dose 80 MG; Start 09/01/18 at 21:00 Insulin Aspart (Novolog Insulin Pen) NOVOLOG *MILD* ALGORI... AC MEALS AND BEDTIME SC Last administered on 09/03/18 12:27; Admin Dose 1 UNIT; Start 09/02/18 at 12:00 Pantoprazole (Protonix Iv) 40 mg DAILY@06 IV Last administered on 09/03/18 10:22; Admin Dose 40 MG; Start 09/03/18 at 10:00 Sucralfate (Carafate Susp) 1 gm QID PO Last administered on 09/03/18 12:07; Admin Dose 1 GM; Start 09/03/18 at 13:00 Acetaminophen/ Hydrocodone Bitart ([place] (5/325)) 1 tab Q4H PRN PO MODERATE PAIN LEVEL 4-6; Start 09/03/18 at 10:00 Scopolamine (Transderm-Scop) 1 patch Q72H TRANSDERM Last administered on 09/03/18 12:07; Admin Dose 1 PATCH; Start 09/03/18 at 11:30 JAE BOX Sep 03, 2018 12:49
[2018-09-03] MEDS: METOCLOPRAMIDE 10 MG INJ IV PRN (16:18)
[2018-09-03] MEDS: ATORVASTATIN 80 MG TAB PO SCH (21:04)
[2018-09-04 04:16] VITALS: BP 147/72; PULSE 70; RESP 20
[2018-09-04] MEDS: PANTOPRAZOLE 40 MG INJ IV SCH ×2 (05:29→17:12)
[2018-09-04] MEDS: LEVOTHYROXINE 100 MCG TAB PO SCH (05:29)
[2018-09-04] MEDS: INSULIN ASPART [NOVOLOG] 3 ML PEN SC SCH ×4 (07:00→21:50)
[2018-09-04 07:21] VITALS: BP 159/69; PULSE 63; RESP 18
[2018-09-04] MEDS: ONDANSETRON 4 MG INJ IV PRN (08:46)
[2018-09-04] MEDS: SUCRALFATE (100 MG/ML) 10ML CUP PO SCH ×4 (08:47→20:17)
[2018-09-04] MEDS: LISINOPRIL 20 MG TAB PO SCH (08:47)
[2018-09-04] MEDS: HYDROCORTISONE 25 MG SUPP PR SCH ×2 (08:47→20:17)
[2018-09-04] MEDS: ASPIRIN 81 MG TAB PO SCH (08:47)
[2018-09-04] MEDS: CHOLECALCIFEROL 1,000 UNIT TAB PO SCH (08:47)
[2018-09-04] MEDS: DOCUSATE SODIUM 100 MG CAP PO SCH ×2 (08:47→20:17)
[2018-09-04] MEDS: SERTRALINE 50 MG TAB PO SCH (08:48)
--- NOTE | 2018-09-04 09:29 | CONS ---
Consult Date/Type/Reason Admit Date/Time Aug 31, 2018 at 19:25 Initial Consult Date Requesting Provider: ALEX CADE Date/Time of Note DATE: 09/04/18 TIME: 09:27 Subjective NO acute events- pt comfortable - no CP now - BP in good range - rate controlled. Up to chair now. ROS: No fever, no chills, no nausea, no vomiting, no diarrhea/constipation No recent weight changes No chest pain, no PND, no orthopnea - improved SOB No dizziness, blurred vision No thirst, no heat or cold intolerance Objective Vitals Vital Signs Date Temp Pulse Resp B/P (MAP) Pulse Ox O2 O2 Flow FiO2 Time Delivery Rate 09/04/18 Nasal 2.0 07:22 Cannula 09/04/18 97.9 63 18 159/69 93 07:21 (99) Intake and Output 09/03/18 09/03/18 09/04/18 1515:00 23:00 07:00 IntakeIntake Total 320 ml 200 ml 100 ml BalanceBalance 320 ml 200 ml 100 ml Exam General: WN/WD/NAD, AOx 2-3 HEENT: Unicetric/atraumatic/EOMI (follows commands) NECK: JVD elevated, no thyromegaly Lymph: no lymphadenopathy HEART: regular with no S3, II/ systolic murmur at apex, PMI L LUNGS: Coarse sounds ABD: soft, NT, ND, +BS : Intact Neuro: non focal SKIN: chronic changes EXT: trace edema Results/Medications Result Diagram: 09/04/18 0539 09/04/18 0539 Results 24 hrs Laboratory Tests Test 09/03/18 12:06 09/03/18 16:47 09/03/18 20:56 09/04/18 05:39 Bedside Glucose 147 105 123 White Blood Count 8.7 Red Blood Count 3.52 L Hemoglobin 11.1 L Hematocrit 35.7 L Mean Corpuscular 101.4 H Volume Mean Corpuscular 31.5 Hemoglobin Mean Corpuscular 31.1 L Hemoglobin Concent Red Cell 13.5 Distribution Width Platelet Count 196 Mean Platelet Volume 9.6 Immature 0.600 H Granulocytes % Neutrophils % 59.1 Lymphocytes % 22.4 Monocytes % 9.7 Eosinophils % 7.6 H Basophils % 0.6 Nucleated Red Blood 0.0 Cells % Immature 0.050 H Granulocytes # Neutrophils # 5.1 Lymphocytes # 1.9 Monocytes # 0.8 Eosinophils # 0.7 H Basophils # 0.1 Nucleated Red Blood 0.0 Cells # Sodium Level 141 Potassium Level 3.8 Chloride Level 104 Carbon Dioxide Level 29 Anion Gap 8 Blood Urea Nitrogen 21 H Creatinine 1.12 H Est Glomerular Filtrat Rate mL/min Glucose Level 108 Calcium Level 9.2 Magnesium Level 2.1 Total Bilirubin 0.8 Direct Bilirubin 0.00 Indirect Bilirubin 0.8 Aspartate Amino 43 Transf (AST/SGOT) Alanine 26 Aminotransferase (AL T/SGPT) Alkaline Phosphatase 148 H Total Protein 7.3 Albumin 3.4 Globulin 3.90 H Albumin/Globulin 0.87 Ratio Test 09/04/18 07:14 Bedside Glucose 110 Home Meds Reported Medications Furosemide* (Furosemide*) 20 Mg Tablet, 10 MG PO DAILY, #60 TAB 09/03/18 Lisinopril* (Lisinopril*) 20 Mg Tablet, 20 MG PO DAILY, #30 TAB HOLD IF SBP<110 08/31/18 Budesonide* (Budesonide*) 0.5 Mg/2 Ml Ampul.neb, 0.5 MG INHALATION BID, AMP 08/31/18 Cephalexin* (Cephalexin*) 500 Mg Capsule, 500 MG PO Q8, #21 CAP FOR 7 DAYS,STOP DATE 09/01/18 08/31/18 Sertraline Hcl* (Zoloft*) 25 Mg Tablet, 25 MG PO DAILY, #30 TAB 08/31/18 Acetaminophen* (Acetaminophen*) 500 MG Extra Strength Tablet, 500 MG PO Q4H PRN for MILD PAIN(1-3)OR ELEVATED TEMP, TAB 08/31/18 Acetaminophen* (Acetaminophen*) 325 Mg Tablet, 650 MG PO Q4H PRN for PAIN LEVEL 4-6/10, #30 TAB AND FEVER>100F 08/31/18 Sodium Phosphate,[place]-Dibasic (Enema Ready To Use) 133 Ml Enema, 133 ML RC Q2D, ENEMA 08/31/18 Bisacodyl (Dulcolax) 10 Mg Supp.rect, 10 MG RC DAILY, SUPP.RECT 08/31/18 Magnesium Hydroxide* (Milk Of Magnesia*) 400 Mg/5 Ml Oral.susp, 30 ML PO DAILY PRN for NEEDED, ML 08/31/18 Levalbuterol Hcl* (Levalbuterol Hcl*) 0.63 Mg/3 Ml Vial.neb, 0.63 MG INHALATION Q4H PRN for WHEEZING AND SOB, VIAL 08/31/18 Oxycodone Hcl* (IR) (Oxycodone Hcl*) 5 Mg Capsule, 5 MG PO Q6H PRN for PAIN LEVEL 7-10, CAP 08/31/18 Insulin Lispro (Humalog) 100 Unit/1 Ml Cartridge, 0 SQ SLIDING SCALE, EA IF BS 0-150=0 UNIT, 151-200=2 UNITS,201-250=4 UNITS, 251-300=6 UNITS, 301-350=8 UNITS, 351-400=10 UNITS ABOVE 400=12 UNITS AND CALL MD 08/31/18 Medications Current Medications Budesonide (Pulmicort (Neb)) 0.5 mg BID HHN Last administered on 09/03/18 21:29; Admin Dose 0.5 MG; Start 08/31/18 at 21:30 Levalbuterol (Xopenex Neb) 0.63 mg Q4H PRN HHN WHEEZING AND SOB Last administered on 09/01/18 03:33; Admin Dose 0.63 MG; Start 08/31/18 at 21:30 Lisinopril (Zestril) 20 mg DAILY PO Last administered on 09/04/18 08:47; Admin Dose 20 MG; Start 09/01/18 at 09:00 Magnesium Hydroxide (Milk Of Mag) 30 ml DAILY PRN PO NEEDED; Start 08/31/18 at 21:30 Sertraline HCl (Zoloft) 25 mg DAILY PO Last administered on 09/04/18 08:48; Admin Dose 25 MG; Start 09/01/18 at 09:00 IV Flush (NS 3 ml) 3 ml PER PROTOCOL IV ; Start 08/31/18 at 21:30 Aspirin (Aspirin) 81 mg DAILY PO Last administered on 09/04/18 08:47; Admin Dose 81 MG; Start 09/01/18 at 09:00 Acetaminophen (Tylenol Tab) 650 mg Q6H PRN PO .PAIN 1-3 OR TEMP Last administered on 09/02/18 10:26; Admin Dose 650 MG; Start 08/31/18 at 21:30 Docusate Sodium (Colace) 100 mg Q12H PO Last administered on 09/04/18 08:47; Admin Dose 100 MG; Start 08/31/18 at 21:30 Bisacodyl (Dulcolax) 5 mg DAILY PRN PO .CONSTIPATION; Start 08/31/18 at 21:30 Ondansetron HCl (Zofran Inj) 4 mg Q4H PRN IV NAUSEA AND/OR VOMITING Last administered on 09/04/18at 08:46; Admin Dose 4 MG; Start 08/31/18 at 23:30 Metoclopramide HCl (Reglan) 10 mg Q6 PRN IV NAUSEA AND/OR VOMITING Last administered on 09/03/18at 16:18; Admin Dose 10 MG; Start 08/31/18 at 23:30 Hydrocortisone (Anusol-Hc Supp) 25 mg BID MO Last administered on 09/04/18at 08:47; Admin Dose 25 MG; Start 09/01/18 at 09:00 Docusate Sodium (Colace) 100 mg DAILY PRN PO CONSTIPATION; Start 09/01/18 at 01:00 Cholecalciferol (Vitamin D) 1,000 unit DAILY PO Last administered on 09/04/18at 08:47; Admin Dose 1,000 UNIT; Start 09/01/18 at 09:00 Meclizine HCl (Antivert) 25 mg TID PRN PO NAUSEA AND/OR VOMITING; Start at 01:00 Miscellaneous Information 1 ea NOTE XX ; Start 09/01/18 at 02:00 Glucose (Glutose) 15 gm Q15M PRN PO DECREASED GLUCOSE; Start 09/01/18 at 02:00 Glucose (Glutose) 22.5 gm Q15M PRN PO DECREASED GLUCOSE; Start 09/01/18 at 02:00 Dextrose (D50w Syringe) 25 ml Q15M PRN IV DECREASED GLUCOSE; Start 09/01/18 at 02:00 Dextrose (D50w Syringe) 50 ml Q15M PRN IV DECREASED GLUCOSE; Start 09/01/18 at 02:00 Glucagon (Glucagen) 1 mg Q15M PRN IM DECREASED GLUCOSE; Start 09/01/18 at 02:00 Glucose (Glutose) 15 gm Q15M PRN BUCCAL DECREASED GLUCOSE; Start 09/01/18 at 02:00 Levothyroxine Sodium (Synthroid) 100 mcg DAILY@06 PO Last administered on 09/04/18 05:29; Admin Dose 100 MCG; Start 09/01/18 at 06:00 Hydralazine HCl (Apresoline) 10 mg Q4H PRN IV ELEVATED BLOOD PRESSURE Last administered on 09/03/18 01:02; Admin Dose 10 MG; Start 09/01/18 at 09:00 Atorvastatin Calcium (Lipitor) 80 mg HS PO Last administered on 09/03/18 21:04; Admin Dose 80 MG; Start 09/01/18 at 21:00 Insulin Aspart (Novolog Insulin Pen) NOVOLOG *MILD* ALGORI... AC MEALS AND BEDTIME SC Last administered on 09/03/18 12:27; Admin Dose 1 UNIT; Start 09/02/18 at 12:00 Pantoprazole (Protonix Iv) 40 mg DAILY@06 IV Last administered on 09/04/18 05:29; Admin Dose 40 MG; Start 09/03/18 at 10:00 Sucralfate (Carafate Susp) 1 gm QID PO Last administered on 09/04/18at 08:47; Admin Dose 1 GM; Start 09/03/18 at 13:00 Acetaminophen/ Hydrocodone Bitart ([place] (5/325)) 1 tab Q4H PRN PO MODERATE PAIN LEVEL 4-6; Start 09/03/18 at 10:00 Scopolamine (Transderm-Scop) 1 patch Q72H TRANSDERM Last administered on 09/03at 12:07; Admin Dose 1 PATCH; Start 09/03/18 at 11:30 Assessment/Plan Hospital Course (Demo Recall) 1. Shortness of breath, assess for congestive heart failure.-Echo tis admit 09/02 EF 60-65 - better now, con't to keep euvolemic. 2. History of aortic valve replacement with a bovine bioprosthetic valve.- proper function by echo - stable by exam 3. Cerebrovascular accident, acute, at time of valve replacement with now ongoing dizziness and weakness, as well as loss of vision per daughter - now more amulatory -neuro follows 4. Hypertension, borderline - con't med rx 5. Hypothyroidism. 6. Diabetes mellitus- on meds, will keep euglycemic 7. Dyslipidemia. 8. Renal failure-improving - cr 1.12 now LUIS E SWAN MD Sep 04, 2018 09:29
[2018-09-04] MEDS: BUDESONIDE (NEB) 0.5MG/2ML AMP HHN SCH ×2 (09:53→20:13)
--- NOTE | 2018-09-04 10:53 | PN ---
Date/Time of Note Date/Time of Note DATE: 09/04/18 TIME: 10:50 Objective Vitals Vital Signs Date Temp Pulse Resp B/P (MAP) Pulse Ox O2 O2 Flow FiO2 Time Delivery Rate 09/04/18 78 16 98 Nasal 3.0 09:55 Cannula 09/04/18 97.9 159/69 07:21 (99) Intake and Output 09/03/18 09/03/18 09/04/18 1515:00 23:00 07:00 IntakeIntake Total 320 ml 200 ml 100 ml BalanceBalance 320 ml 200 ml 100 ml Results Result Diagram: 09/04/1839 09/04/1839 Medications Medications Current Medications Budesonide (Pulmicort (Neb)) 0.5 mg BID HHN Last administered on 09/04/18 09:53; Admin Dose 0.5 MG; Start 08/31/18 at 21:30 Levalbuterol (Xopenex Neb) 0.63 mg Q4H PRN HHN WHEEZING AND SOB Last administered on 09/01/18 03:33; Admin Dose 0.63 MG; Start 08/31/18 at 21:30 Lisinopril (Zestril) 20 mg DAILY PO Last administered on 09/04/18 08:47; Admin Dose 20 MG; Start 09/01/18 at 09:00 Magnesium Hydroxide (Milk Of Mag) 30 ml DAILY PRN PO NEEDED; Start 08/31/18 at 21:30 Sertraline HCl (Zoloft) 25 mg DAILY PO Last administered on 09/04/18 08:48; Admin Dose 25 MG; Start 09/01/18 at 09:00 IV Flush (NS 3 ml) 3 ml PER PROTOCOL IV ; Start 08/31/18 at 21:30 Aspirin (Aspirin) 81 mg DAILY PO Last administered on 09/04/18 08:47; Admin Dose 81 MG; Start 09/01/18 at 09:00 Acetaminophen (Tylenol Tab) 650 mg Q6H PRN PO .PAIN 1-3 OR TEMP Last administered on 09/02/18 10:26; Admin Dose 650 MG; Start 08/31/18 at 21:30 Docusate Sodium (Colace) 100 mg Q12H PO Last administered on 09/04/18 08:47; Admin Dose 100 MG; Start 08/31/18 at 21:30 Bisacodyl (Dulcolax) 5 mg DAILY PRN PO .CONSTIPATION; Start 08/31/18 at 21:30 Ondansetron HCl (Zofran Inj) 4 mg Q4H PRN IV NAUSEA AND/OR VOMITING Last administered on 09/04/18at 08:46; Admin Dose 4 MG; Start 08/31/18 at 23:30 Metoclopramide HCl (Reglan) 10 mg Q6 PRN IV NAUSEA AND/OR VOMITING Last administered on 09/03/18at 16:18; Admin Dose 10 MG; Start 08/31/18 at 23:30 Hydrocortisone (Anusol-Hc Supp) 25 mg BID [place] Last administered on 09/04/18at 08:47; Admin Dose 25 MG; Start 09/01/18 at 09:00 Docusate Sodium (Colace) 100 mg DAILY PRN PO CONSTIPATION; Start 09/01/18 at 01:00 Cholecalciferol (Vitamin D) 1,000 unit DAILY PO Last administered on 09/04/18at 08:47; Admin Dose 1,000 UNIT; Start 09/01/18 at 09:00 Meclizine HCl (Antivert) 25 mg TID PRN PO NAUSEA AND/OR VOMITING; Start 09/01/18 at 01:00 Miscellaneous Information 1 ea NOTE XX ; Start 09/01/18 at 02:00 Glucose (Glutose) 15 gm Q15M PRN PO DECREASED GLUCOSE; Start 09/01/18 at 02:00 Glucose (Glutose) 22.5 gm Q15M PRN PO DECREASED GLUCOSE; Start 09/01/18 at 02:00 Dextrose (D50w Syringe) 25 ml Q15M PRN IV DECREASED GLUCOSE; Start 09/01/18 at 02:00 Dextrose (D50w Syringe) 50 ml Q15M PRN IV DECREASED GLUCOSE; Start 09/01/18 at 02:00 Glucagon (Glucagen) 1 mg Q15M PRN IM DECREASED GLUCOSE; Start 09/01/18 at 02:00 Glucose (Glutose) 15 gm Q15M PRN BUCCAL DECREASED GLUCOSE; Start 09/01/18 at 02:00 Levothyroxine Sodium (Synthroid) 100 mcg DAILY@06 PO Last administered on 09/04/18at 05:29; Admin Dose 100 MCG; Start 09/01/18 at 06:00 Hydralazine HCl (Apresoline) 10 mg Q4H PRN IV ELEVATED BLOOD PRESSURE Last administered on 09/03/18 01:02; Admin Dose 10 MG; Start 09/01/18 at 09:00 Atorvastatin Calcium (Lipitor) 80 mg HS PO Last administered on 09/03/18at 21:04; Admin Dose 80 MG; Start 09/01/18 at 21:00 Insulin Aspart (Novolog Insulin Pen) NOVOLOG *MILD* ALGORI... AC MEALS AND BEDTIME SC Last administered on 09/03/18at 12:27; Admin Dose 1 UNIT; Start 09/02/18 at 12:00 Pantoprazole (Protonix Iv) 40 mg DAILY@06 IV Last administered on 09/04/18 05:29; Admin Dose 40 MG; Start 09/03/18 at 10:00 Sucralfate (Carafate Susp) 1 gm QID PO Last administered on 09/04/18at 08:47; Admin Dose 1 GM; Start 09/03/18 at 13:00 Acetaminophen/ Hydrocodone Bitart ([place] (5/325)) 1 tab Q4H PRN PO MODERATE PAIN LEVEL 4-6; Start 09/03/18 at 10:00 Scopolamine (Transderm-Scop) 1 patch Q72H TRANSDERM Last administered on 09/03/18at 12:07; Admin Dose 1 PATCH; Start 09/03/18 at 11:30 VTE Prophylaxis Risk score (from Ns)>0 risk: 4 SCD applied (from Ns): Yes Lines/Catheters IV Catheter Type: Jerez in Place: No Assessment/Plan Hospital Course Subjective Patient still has some mild nausea, still with mild epigastric pain Objective Physical exam General: Patient is laying in bed and answers questions appropriately Mentation: Patient is alert and oriented 4, Head: Normocephalic atraumatic Eyes: EOMI, pupils reactive to light Neck: Supple, nontender, midline Respiratory: Clear to auscultation bilaterally Cardiovascular: regular rate, no obvious murmurs Gastrointestinal: mildly-tender to palpation, bowel sounds heard. Neurological: Moves all extremities spontaneously, has some upper extremity difficulties Skin: No new skin lesions Assessment/Plan 1. Dizziness/ Vertigo- improving, however chronic -Still with chronic dizziness ever since CABG 1 month ago - Neurology on board and appreciate recommendations. 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 neurology recs apprecated, states chronic abdominal pain, mild and improving however still persistent -epigastric discomfort, possible gastritis pain -lipase negative -ct negative -protonix/carafate -GI consulted Questionable postsurgical changes on CABG -CT of the abdomen and pelvis found possible signs of mediastinitis, however due to patient's lack of chest pain, severe surgical site erythema, fever, I doubt mediastinitis however will get cardiothoracic surgeon to review CT. Likely secondary to healing CABG nausea -acute on chronic, has been going on for some time according to daughter, may be secondary to all the meds she started after her CABG last month -continue meds as needed, added scopolamine patch. 2. HTN - stable - cont Lisinopril and other meds and monitor BP as well as renal function 3. Hypothyroidism - TSH very elevated and will need to confirm home dose to ensure increase - will continue with 100mcg for now and will need to follow up as outpatient for repeat TSH 4. Recent CVA - seems only deficit is confusion but moving all extremities with intact strength, but some left shoulder issues - per PT, will benefit from SNF/ARU after discharge, patient is already a resident at a group home facility 5. Aortic stenosis s/p valve replacement - ECHO per cardiology - Cardiology consultation appreciated 6. NIA- improving - restarted Lisinopril but will need to monitor for further Cr improvement prior to restarting home diuretics if needed - will continue monitoring and avoid nephrotoxic agents 7. Disposition -Awaiting GI and cardiothoracic surgery recommendations LIZZ BOJORQUEZ Sep 04, 2018 10:53
[2018-09-04 11:25] VITALS: BP 126/66; PULSE 69; RESP 17
--- NOTE | 2018-09-04 11:34 | CONS ---
Assessment/Plan Assessment/Plan Hospital Course (Demo Recall) Summary Assessment and Plan: Assessment: Epigastric pain/nausea Imaging compatible with liver cirrhosis Dizziness- started post open heart surgery about 1-2 months ago Recent CVA Aortic stenosis s/p valve replacement NIA HTN Hypothyroidism Plan: Continue PPI/Carafate- will maximize PPI increase to BID Monitor for overt signs of GI bleed Monitor need for EGD- currently no plans- however we would need cardiac clearance prior to endoscopic evaluation if required in the near future Patient seen in collaboration with Dr. Guerrero CC: ARGELIA GUERRERO MD ; Consultation Date/Type/Reason Admit Date/Time Aug 31, 2018 at 19:25 Date/Time of Note DATE: 09/04/18 TIME: 11:20 Hx of Present Illness This is a 73-year-old confused female, HPI is limited and information obtained from medical records. She has a past medical history of hypertension, hypothyroidism, diabetes mellitus, v dyslipidemia, aortic stenosis status post valve replacements with a Bovine aortic valve at [facility] about 2 months ago, complicated by CVA, and thereafter nausea, NIA. After her surgery she was discharged to SNF. She presented to the ER with complaints of shortness of breath generalized weakness, dizziness and loss of vision. Here imaging was obtained A head CTA revealed age indeterminant thrombosis of the proximal right posterior cerebral artery, and a large, old right posterior temporal septal infarct, corresponding to the vascular distribution, and then a head CT that revealed no acute intracranial stroke or hemorrhage. MRI of the brain shows multifocal chronic infarcts.Punctate diffusion bright lesions anteriorly are without adc correlate, inconsistent w/ acute ischemia. During hospitalization patient has c/o epigastric pain and some nausea likely r/t ongoing dizziness post open heart surgery 1-2 months ago. She has been started on PPI/Carafate therapy. a CT A/P was obtained showing nodular surface contour of the liver, compatible with cirrhosis, other guidry no other GI abnormalities. At time of evaluation patient is confused but able to make needs known. She continues to complain of some nausea and states epigastric pain has improved. There are no overt signs of GI bleed as noted by nursing staff and hemoglobin is currently stable, at this time we will continue current regimen we will additionally order some lab work regarding findings of liver cirrhosis. Monitor need for endoscopic evaluation at this time patient appears to improve we will hold off on EGD. Past Medical History Home Meds Reported Medications Furosemide* (Furosemide*) 20 Mg Tablet, 10 MG PO DAILY, #60 TAB 09/03/18 Lisinopril* (Lisinopril*) 20 Mg Tablet, 20 MG PO DAILY, #30 TAB HOLD IF SBP<110 08/31/18 Budesonide* (Budesonide*) 0.5 Mg/2 Ml Ampul.neb, 0.5 MG INHALATION BID, AMP 08/31/18 Cephalexin* (Cephalexin*) 500 Mg Capsule, 500 MG PO Q8, #21 CAP FOR 7 DAYS,STOP DATE 09/01/18 08/31/18 Sertraline Hcl* (Zoloft*) 25 Mg Tablet, 25 MG PO DAILY, #30 TAB 08/31/18 Acetaminophen* (Acetaminophen*) 500 MG Extra Strength Tablet, 500 MG PO Q4H PRN for MILD PAIN(1-3)OR ELEVATED TEMP, TAB 08/31/18 Acetaminophen* (Acetaminophen*) 325 Mg Tablet, 650 MG PO Q4H PRN for PAIN LEVEL 4-6/10, #30 TAB AND FEVER>100F 08/31/18 Sodium Phosphate,[place]-Dibasic (Enema Ready To Use) 133 Ml Enema, 133 ML RC Q2D, ENEMA 08/31/18 Bisacodyl (Dulcolax) 10 Mg Supp.rect, 10 MG RC DAILY, SUPP.RECT 08/31/18 Magnesium Hydroxide* (Milk Of Magnesia*) 400 Mg/5 Ml Oral.susp, 30 ML PO DAILY PRN for NEEDED, ML 08/31/18 Levalbuterol Hcl* (Levalbuterol Hcl*) 0.63 Mg/3 Ml Vial.neb, 0.63 MG INHALATION Q4H PRN for WHEEZING AND SOB, VIAL 08/31/18 Oxycodone Hcl* (IR) (Oxycodone Hcl*) 5 Mg Capsule, 5 MG PO Q6H PRN for PAIN LEVEL 7-10/10, CAP 08/31/18 Insulin Lispro (Humalog) 100 Unit/1 Ml Cartridge, 0 SQ SLIDING SCALE, EA IF BS 0-150=0 UNIT, 151-200=2 UNITS,201-250=4 UNITS, 251-300=6 UNITS, 301-350=8 UNITS, 351-400=10 UNITS ABOVE 400=12 UNITS AND CALL 08/31/18 Medications Current Medications Budesonide (Pulmicort (Neb)) 0.5 mg BID HHN Last administered on 09/04/18 09:53; Admin Dose 0.5 MG; Start 08/31/18 at 21:30 Levalbuterol (Xopenex Neb) 0.63 mg Q4H PRN HHN WHEEZING AND SOB Last administered on 09/01/18 03:33; Admin Dose 0.63 MG; Start 08/31/18 at 21:30 Lisinopril (Zestril) 20 mg DAILY PO Last administered on 09/04/18 08:47; Admin Dose 20 MG; Start 09/01/18 at 09:00 Magnesium Hydroxide (Milk Of Mag) 30 ml DAILY PRN PO NEEDED; Start 08/31/18 at 21:30 Sertraline HCl (Zoloft) 25 mg DAILY PO Last administered on 09/04/18 08:48; Admin Dose 25 MG; Start 09/01/18 at 09:00 IV Flush (NS 3 ml) 3 ml PER PROTOCOL IV ; Start 08/31/18 at 21:30 Aspirin (Aspirin) 81 mg DAILY PO Last administered on 09/04/18 08:47; Admin Dose 81 MG; Start 09/01/18 at 09:00 Acetaminophen (Tylenol Tab) 650 mg Q6H PRN PO .PAIN 1-3 OR TEMP Last administered on 09/02/18 10:26; Admin Dose 650 MG; Start 08/31/18 at 21:30 Docusate Sodium (Colace) 100 mg Q12H PO Last administered on 09/04/18 08:47; Admin Dose 100 MG; Start 08/31/18 at 21:30 Bisacodyl (Dulcolax) 5 mg DAILY PRN PO .CONSTIPATION; Start 08/31/18 at 21:30 Ondansetron HCl (Zofran Inj) 4 mg Q4H PRN IV NAUSEA AND/OR VOMITING Last administered on 09/04/18 08:46; Admin Dose 4 MG; Start 08/31/18 at 23:30 Metoclopramide HCl (Reglan) 10 mg Q6 PRN IV NAUSEA AND/OR VOMITING Last administered on 09/03/18 16:18; Admin Dose 10 MG; Start 08/31/18 at 23:30 Hydrocortisone (Anusol-Hc Supp) 25 mg BID ME Last administered on 09/04/18at 08:47; Admin Dose 25 MG; Start 09/01/18 at 09:00 Docusate Sodium (Colace) 100 mg DAILY PRN PO CONSTIPATION; Start 09/01/18 at 01:00 Cholecalciferol (Vitamin D) 1,000 unit DAILY PO Last administered on 09/04/18at 08:47; Admin Dose 1,000 UNIT; Start 09/01/18 at 09:00 Meclizine HCl (Antivert) 25 mg TID PRN PO NAUSEA AND/OR VOMITING; Start 09/01/18 at 01:00 Miscellaneous Information 1 ea NOTE XX ; Start 09/01/18 at 02:00 Glucose (Glutose) 15 gm Q15M PRN PO DECREASED GLUCOSE; Start 09/01/18 at 02:00 Glucose (Glutose) 22.5 gm Q15M PRN PO DECREASED GLUCOSE; Start 09/01/18 at 02:00 Dextrose (D50w Syringe) 25 ml Q15M PRN IV DECREASED GLUCOSE; Start 09/01/18 at 02:00 Dextrose (D50w Syringe) 50 ml Q15M PRN IV DECREASED GLUCOSE; Start 09/01/18 at 02:00 Glucagon (Glucagen) 1 mg Q15M PRN IM DECREASED GLUCOSE; Start 09/01/18 at 02:00 Glucose (Glutose) 15 gm Q15M PRN BUCCAL DECREASED GLUCOSE; Start 09/01/18 at 02:00 Levothyroxine Sodium (Synthroid) 100 mcg DAILY@06 PO Last administered on 09/04/18at 05:29; Admin Dose 100 MCG; Start 09/01/18 at 06:00 Hydralazine HCl (Apresoline) 10 mg Q4H PRN IV ELEVATED BLOOD PRESSURE Last administered on 09/03/18at 01:02; Admin Dose 10 MG; Start 09/01/18 at 09:00 Atorvastatin Calcium (Lipitor) 80 mg HS PO Last administered on 09/03/18at 21:04; Admin Dose 80 MG; Start 09/01/18 at 21:00 Insulin Aspart (Novolog Insulin Pen) NOVOLOG *MILD* ALGORI... AC MEALS AND BEDTIME SC Last administered on 09/03/18at 12:27; Admin Dose 1 UNIT; Start 09/02/18 at 12:00 Pantoprazole (Protonix Iv) 40 mg DAILY@06 IV Last administered on 09/04/18at 05:29; Admin Dose 40 MG; Start 09/03/18 at 10:00 Sucralfate (Carafate Susp) 1 gm QID PO Last administered on 09/04/18at 08:47; Admin Dose 1 GM; Start 09/03/18 at 13:00 Acetaminophen/ Hydrocodone Bitart ([place] (5/325)) 1 tab Q4H PRN PO MODERATE PAIN LEVEL 4-6; Start 09/03/18 at 10:00 Scopolamine (Transderm-Scop) 1 patch Q72H TRANSDERM Last administered on 09/03/18at 12:07; Admin Dose 1 PATCH; Start 09/03/18 at 11:30 Allergies: Coded Allergies: No Known Allergy (Unverified , 08/31/18) Social History Alcohol Use: none Smoking Status: Never smoker Drug Use: none Exam/Review of Systems Exam Vitals Vital Signs Date Temp Pulse Resp B/P (MAP) Pulse Ox O2 O2 Flow FiO2 Time Delivery Rate 09/04/18 78 16 98 Nasal 3.0 09:55 Cannula 09/04/18 97.9 159/69 07:21 (99) Intake and Output 09/03/18 09/03/18 09/04/18 1515:00 23:00 07:00 IntakeIntake Total 320 ml 200 ml 100 ml BalanceBalance 320 ml 200 ml 100 ml Constitutional: alert (anf confused) Psych: no complaints Head: normocephalic Eyes: nl conjunctiva ENMT: nl external ears & nose Respiratory: clear to auscultation Cardiovascular: regular rate and rhythm Gastrointestinal: soft, bowel sounds, tender (mild tenderness) Skin: nl turgor Results Result Diagram: 09/04/18 0539 09/04/18 0539 Results 24hrs Laboratory Tests Test 09/03/18 12:06 09/03/18 16:47 09/03/18 20:56 09/04/18 05:39 Bedside Glucose 147 105 123 White Blood Count 8.7 Red Blood Count 3.52 L Hemoglobin 11.1 L Hematocrit 35.7 L Mean Corpuscular 101.4 H Volume Mean Corpuscular 31.5 Hemoglobin Mean Corpuscular 31.1 L Hemoglobin Concent Red Cell 13.5 Distribution Width Platelet Count 196 Mean Platelet Volume 9.6 Immature 0.600 H Granulocytes % Neutrophils % 59.1 Lymphocytes % 22.4 Monocytes % 9.7 Eosinophils % 7.6 H Basophils % 0.6 Nucleated Red Blood 0.0 Cells % Immature 0.050 H Granulocytes # Neutrophils # 5.1 Lymphocytes # 1.9 Monocytes # 0.8 Eosinophils # 0.7 H Basophils # 0.1 Nucleated Red Blood 0.0 Cells # Sodium Level 141 Potassium Level 3.8 Chloride Level 104 Carbon Dioxide Level 29 Anion Gap 8 Blood Urea Nitrogen 21 H Creatinine 1.12 H Est Glomerular Filtrat Rate mL/min Glucose Level 108 Calcium Level 9.2 Magnesium Level 2.1 Total Bilirubin 0.8 Direct Bilirubin 0.00 Indirect Bilirubin 0.8 Aspartate Amino 43 Transf (AST/SGOT) Alanine 26 Aminotransferase (AL T/SGPT) Alkaline Phosphatase 148 H Total Protein 7.3 Albumin 3.4 Globulin 3.90 H Albumin/Globulin 0.87 Ratio Test 09/04/18 07:14 Bedside Glucose 110 Medications Medication Current Medications Budesonide (Pulmicort (Neb)) 0.5 mg BID HHN Last administered on 09/04/18 09:53; Admin Dose 0.5 MG; Start 08/31/18 at 21:30 Levalbuterol (Xopenex Neb) 0.63 mg Q4H PRN HHN WHEEZING AND SOB Last administered on 09/01/18at 03:33; Admin Dose 0.63 MG; Start 08/31/18 at 21:30 Lisinopril (Zestril) 20 mg DAILY PO Last administered on 09/04/18 08:47; Admin Dose 20 MG; Start 09/01/18 at 09:00 Magnesium Hydroxide (Milk Of Mag) 30 ml DAILY PRN PO NEEDED; Start 08/31/18 at 21:30 Sertraline HCl (Zoloft) 25 mg DAILY PO Last administered on 09/04/18 08:48; Admin Dose 25 MG; Start 09/01/18 at 09:00 IV Flush (NS 3 ml) 3 ml PER PROTOCOL IV ; Start 08/31/18 at 21:30 Aspirin (Aspirin) 81 mg DAILY PO Last administered on 09/04/18 08:47; Admin Dose 81 MG; Start 09/01/18 at 09:00 Acetaminophen (Tylenol Tab) 650 mg Q6H PRN PO .PAIN 1-3 OR TEMP Last admini stered on 09/02/18 10:26; Admin Dose 650 MG; Start 08/31/18 at 21:30 Docusate Sodium (Colace) 100 mg Q12H PO Last administered on 09/04/18 08:47; Admin Dose 100 MG; Start 08/31/18 at 21:30 Bisacodyl (Dulcolax) 5 mg DAILY PRN PO .CONSTIPATION; Start 08/31/18 at 21:30 Ondansetron HCl (Zofran Inj) 4 mg Q4H PRN IV NAUSEA AND/OR VOMITING Last administered on 09/04/18 08:46; Admin Dose 4 MG; Start 08/31/18 at 23:30 Metoclopramide HCl (Reglan) 10 mg Q6 PRN IV NAUSEA AND/OR VOMITING Last administered on 09/03/18 16:18; Admin Dose 10 MG; Start 08/31/18 at 23:30 Hydrocortisone (Anusol-Hc Supp) 25 mg BID ME Last administered on 09/04/18 08:47; Admin Dose 25 MG; Start 09/01/18 at 09:00 Docusate Sodium (Colace) 100 mg DAILY PRN PO CONSTIPATION; Start 09/01/18 at 01:00 Cholecalciferol (Vitamin D) 1,000 unit DAILY PO Last administered on 09/04/18 08:47; Admin Dose 1,000 UNIT; Start 09/01/18 at 09:00 Meclizine HCl (Antivert) 25 mg TID PRN PO NAUSEA AND/OR VOMITING; Start 09/01/18 at 01:00 Miscellaneous Information 1 ea NOTE XX ; Start 09/01/18 at 02:00 Glucose (Glutose) 15 gm Q15M PRN PO DECREASED GLUCOSE; Start 09/01/18 at 02:00 Glucose (Glutose) 22.5 gm Q15M PRN PO DECREASED GLUCOSE; Start 09/01/18 at 02:00 Dextrose (D50w Syringe) 25 ml Q15M PRN IV DECREASED GLUCOSE; Start 09/01/18 at 02:00 Dextrose (D50w Syringe) 50 ml Q15M PRN IV DECREASED GLUCOSE; Start 09/01/18 at 02:00 Glucagon (Glucagen) 1 mg Q15M PRN IM DECREASED GLUCOSE; Start 09/01/18 at 02:00 Glucose (Glutose) 15 gm Q15M PRN BUCCAL DECREASED GLUCOSE; Start 09/01/18 at 02:00 Levothyroxine Sodium (Synthroid) 100 mcg DAILY@06 PO Last administered on 09/04/18 05:29; Admin Dose 100 MCG; Start 09/01/18 at 06:00 Hydralazine HCl (Apresoline) 10 mg Q4H PRN IV ELEVATED BLOOD PRESSURE Last administered on 09/03/18 01:02; Admin Dose 10 MG; Start 09/01/18 at 09:00 Atorvastatin Calcium (Lipitor) 80 mg HS PO Last administered on 09/03/18 21:04; Admin Dose 80 MG; Start 09/01/18 at 21:00 Insulin Aspart (Novolog Insulin Pen) NOVOLOG *MILD* ALGORI... AC MEALS AND BEDTIME SC Last administered on 09/03/18 12:27; Admin Dose 1 UNIT; Start 09/02/18 at 12:00 Pantoprazole (Protonix Iv) 40 mg DAILY@06 IV Last administered on 09/04/18 05:29; Admin Dose 40 MG; Start 09/03/18 at 10:00 Sucralfate (Carafate Susp) 1 gm QID PO Last administered on 09/04/18at 08:47; Admin Dose 1 GM; Start 09/03/18 at 13:00 Acetaminophen/ Hydrocodone Bitart ([place] (5/325)) 1 tab Q4H PRN PO MODERATE PAIN LEVEL 4-6; Start 09/03/18 at 10:00 Scopolamine (Transderm-Scop) 1 patch Q72H TRANSDERM Last administered on 09/03/18at 12:07; Admin Dose 1 PATCH; Start 09/03/18 at 11:30 BERNICE DAI Sep 04, 2018 11:32
[2018-09-04] MEDS ORDERED: POLYETHYLENE GLYCOL 17 GM PACKET PO PRN (12:00)
--- NOTE | 2018-09-04 12:05 | CONS ---
Assessment/Plan Assessment/Plan Assessment/Plan (Recall) 73 F c/ multiple comorbidities, including kin-operative strokes 6 weeks ago...who presents for evaluation of nonspecific dizziness. The clinical picture is atypical for an acute cerebrovascular process.. Noted to be in NIA on arrival, which is a potential contributor.. MRI brain confirms multifocal chronic infarcts.. Punctate diffusion bright lesions anteriorly are without adc correlate, inconsistent w/ acute ischemia. CTA head and neck confirms multifocal stenoses..and a chronic EATING DISORDER PSYCHOLOGIST thrombus. P: Agree w/ asa/lipitor daily for secondary stroke prevention Continued medical management and supportive care per primary PT/OT/ST as necessary Other management and supportive care per primary Will follow clinically Consultation Date/Type/Reason Admit Date/Time Aug 31, 2018 at 19:25 Type of Consult Neurology Reason for Consultation dizziness Requesting Provider: ALEX CADE Date/Time of Note DATE: 09/04/18 TIME: 12:04 24 HR Interval Summary Free Text/Dictation Continues acute care Exam/Review of Systems Exam Vitals Vital Signs Date Temp Pulse Resp B/P (MAP) Pulse Ox O2 O2 Flow FiO2 Time Delivery Rate 09/04/18 98.0 69 17 126/66 99 11:25 (86) 09/04/18 3.0 11:21 09/04/18 Nasal 09:55 Cannula Intake and Output 09/03/18 09/03/18 09/04/18 1515:00 23:00 07:00 IntakeIntake Total 320 ml 200 ml 100 ml BalanceBalance 320 ml 200 ml 100 ml Results Result Diagram: 09/04/18 0539 09/04/18 0539 Results 24hrs Laboratory Tests Test 09/03/18 12:06 09/03/18 16:47 09/03/18 20:56 09/04/18 05:39 Bedside Glucose 147 105 123 White Blood Count 8.7 Red Blood Count 3.52 L Hemoglobin 11.1 L Hematocrit 35.7 L Mean Corpuscular 101.4 H Volume Mean Corpuscular 31.5 Hemoglobin Mean Corpuscular 31.1 L Hemoglobin Concent Red Cell 13.5 Distribution Width Platelet Count 196 Mean Platelet Volume 9.6 Immature 0.600 H Granulocytes % Neutrophils % 59.1 Lymphocytes % 22.4 Monocytes % 9.7 Eosinophils % 7.6 H Basophils % 0.6 Nucleated Red Blood 0.0 Cells % Immature 0.050 H Granulocytes # Neutrophils # 5.1 Lymphocytes # 1.9 Monocytes # 0.8 Eosinophils # 0.7 H Basophils # 0.1 Nucleated Red Blood 0.0 Cells # Sodium Level 141 Potassium Level 3.8 Chloride Level 104 Carbon Dioxide Level 29 Anion Gap 8 Blood Urea Nitrogen 21 H Creatinine 1.12 H Est Glomerular Filtrat Rate mL/min Glucose Level 108 Calcium Level 9.2 Magnesium Level 2.1 Total Bilirubin 0.8 Direct Bilirubin 0.00 Indirect Bilirubin 0.8 Aspartate Amino 43 Transf (AST/SGOT) Alanine 26 Aminotransferase (AL T/SGPT) Alkaline Phosphatase 148 H Total Protein 7.3 Albumin 3.4 Globulin 3.90 H Albumin/Globulin 0.87 Ratio Test 09/04/18 07:14 09/04/18 11:51 Bedside Glucose 110 121 Medications Medication Current Medications Budesonide (Pulmicort (Neb)) 0.5 mg BID HHN Last administered on 09/04/18 09:53; Admin Dose 0.5 MG; Start 08/31/18 at 21:30 Levalbuterol (Xopenex Neb) 0.63 mg Q4H PRN HHN WHEEZING AND SOB Last administered on 09/01/18 03:33; Admin Dose 0.63 MG; Start 08/31/18 at 21:30 Lisinopril (Zestril) 20 mg DAILY PO Last administered on 09/04/18 08:47; Admin Dose 20 MG; Start 09/01/18 at 09:00 Magnesium Hydroxide (Milk Of Mag) 30 ml DAILY PRN PO NEEDED; Start 08/31/18 at 21:30 Sertraline HCl (Zoloft) 25 mg DAILY PO Last administered on 09/04/18 08:48; Admin Dose 25 MG; Start 09/01/18 at 09:00 IV Flush (NS 3 ml) 3 ml PER PROTOCOL IV ; Start 08/31/18 at 21:30 Aspirin (Aspirin) 81 mg DAILY PO Last administered on 09/04/18 08:47; Admin Dose 81 MG; Start 09/01/18 at 09:00 Acetaminophen (Tylenol Tab) 650 mg Q6H PRN PO .PAIN 1-3 OR TEMP Last administered on 09/02/18 10:26; Admin Dose 650 MG; Start 08/31/18 at 21:30 Docusate Sodium (Colace) 100 mg Q12H PO Last administered on 09/04/18 08:47; Admin Dose 100 MG; Start 08/31/18 at 21:30 Bisacodyl (Dulcolax) 5 mg DAILY PRN PO .CONSTIPATION; Start 08/31/18 at 21:30 Ondansetron HCl (Zofran Inj) 4 mg Q4H PRN IV NAUSEA AND/OR VOMITING Last administered on 09/04/18at 08:46; Admin Dose 4 MG; Start 08/31/18 at 23:30 Metoclopramide HCl (Reglan) 10 mg Q6 PRN IV NAUSEA AND/OR VOMITING Last administered on 09/03/18at 16:18; Admin Dose 10 MG; Start 08/31/18 at 23:30 Hydrocortisone (Anusol-Hc Supp) 25 mg BID AL Last administered on 09/04/18at 08:47; Admin Dose 25 MG; Start 09/01/18 at 09:00 Docusate Sodium (Colace) 100 mg DAILY PRN PO CONSTIPATION; Start 09/01/18 at 01:00 Cholecalciferol (Vitamin D) 1,000 unit DAILY PO Last administered on 09/04/18 08:47; Admin Dose 1,000 UNIT; Start 09/01/18 at 09:00 Meclizine HCl (Antivert) 25 mg TID PRN PO NAUSEA AND/OR VOMITING; Start 09/01/18 at 01:00 Miscellaneous Information 1 ea NOTE XX ; Start 09/01/18 at 02:00 Glucose (Glutose) 15 gm Q15M PRN PO DECREASED GLUCOSE; Start 09/01/18 at 02:00 Glucose (Glutose) 22.5 gm Q15M PRN PO DECREASED GLUCOSE; Start 09/01/18 at 02:00 Dextrose (D50w Syringe) 25 ml Q15M PRN IV DECREASED GLUCOSE; Start 09/01/18 at 02:00 Dextrose (D50w Syringe) 50 ml Q15M PRN IV DECREASED GLUCOSE; Start 09/01/18 at 02:00 Glucagon (Glucagen) 1 mg Q15M PRN IM DECREASED GLUCOSE; Start 09/01/18 at 02:00 Glucose (Glutose) 15 gm Q15M PRN BUCCAL DECREASED GLUCOSE; Start 09/01/18 at 02:00 Levothyroxine Sodium (Synthroid) 100 mcg DAILY@06 PO Last administered on 09/04/18 05:29; Admin Dose 100 MCG; Start 09/01/18 at 06:00 Hydralazine HCl (Apresoline) 10 mg Q4H PRN IV ELEVATED BLOOD PRESSURE Last administered on 09/03/18at 01:02; Admin Dose 10 MG; Start 09/01/18 at 09:00 Atorvastatin Calcium (Lipitor) 80 mg HS PO Last administered on 09/03/18at 2 1:04; Admin Dose 80 MG; Start 09/01/18 at 21:00 Insulin Aspart (Novolog Insulin Pen) NOVOLOG *MILD* ALGORI... AC MEALS AND BEDTIME SC Last administered on 09/03/18at 12:27; Admin Dose 1 UNIT; Start 09/02/18 at 12:00 Sucralfate (Carafate Susp) 1 gm QID PO Last administered on 09/04/18at 08:47; Admin Dose 1 GM; Start 09/03/18 at 13:00 Acetaminophen/ Hydrocodone Bitart ([place] (5/325)) 1 tab Q4H PRN PO MODERATE PAIN LEVEL 4-6; Start 09/03/18 at 10:00 Scopolamine (Transderm-Scop) 1 patch Q72H TRANSDERM Last administered on 09/03/18at 12:07; Admin Dose 1 PATCH; Start 09/03/18 at 11:30 Pantoprazole (Protonix Iv) 40 mg BID@0600,1800 IV ; Start 09/04/18 at 18:00 Polyethylene Glycol (Miralax) 17 gm ONCE ONCE PO ; Start 09/04/18 at 12:00; Stop 09/04/18 at 12:01; Status UNV Polyethylene Glycol (Miralax) 17 gm DAILY PRN PO CONSTIPATION; Start 09/04/18 at 12:00; Status UNV JAE BOX Sep 04, 2018 12:05
[2018-09-04] MEDS ORDERED: POLYETHYLENE GLYCOL 17 GM PACKET PO ONE (12:15)
[2018-09-04] MEDS: HYDROCODONE/APAP (5/325) TAB PO PRN (14:36)
[2018-09-04 15:20] VITALS: BP 144/66; PULSE 68; RESP 17
[2018-09-04 19:30] VITALS: BP 156/70; PULSE 69; RESP 18
[2018-09-04] MEDS: ATORVASTATIN 80 MG TAB PO SCH (20:17)
[2018-09-05 00:17] VITALS: BP 129/60; RESP 19
[2018-09-05 04:06] VITALS: BP 146/65; PULSE 70; RESP 20
[2018-09-05] MEDS: PANTOPRAZOLE 40 MG INJ IV SCH ×2 (06:18→17:11)
[2018-09-05] MEDS: LEVOTHYROXINE 100 MCG TAB PO SCH (06:19)
[2018-09-05] MEDS: INSULIN ASPART [NOVOLOG] 3 ML PEN SC SCH ×4 (07:00→20:16)
[2018-09-05 07:29] VITALS: BP 158/70; PULSE 76; RESP 20
[2018-09-05] MEDS: BUDESONIDE (NEB) 0.5MG/2ML AMP HHN SCH ×2 (07:39→20:06)
--- NOTE | 2018-09-05 08:32 | PSY ---
Date/Time of Note Date/Time of Note DATE: 09/05/18 TIME: 08:18 Psychiatric Subjective Eval Consent Pt consented to telemedicine: No Subjective Evaluation Patient location: inpatient Chief Complaint: Pt. APRYL RA, c/o weakness in front of urgent care. History of present illness Patient was originally evaluated a week ago, however she was denying suicidal ideation denies feeling of hopelessness and contracted for safety. On a [id number] evaluation today, translation was done by the one-to-one staff. Patient is tearful reports difficulty sleeping, reports hopelessness and helplessness and reports passive suicidal thoughts suicidal thoughts. Patient states she will not take her own life but she wished she was dated. Discussed risk and benefits of antidepressant and she verbalized understanding Past psychiatric history Denies Hospitalization: other Medical history Problems Medical Problems: (1) CVA (cerebral vascular accident) Status: Acute Allergies: Coded Allergies: No Known Allergy (Unverified , 08/31/18) Substance Abuse Substance use: other Substance abuse history: No Prior substance abuse treatmen: No Social History Marital status: other DPA/Conservatorship: No Psychiatric Objective Eval Review of Systems: Review of Systems: Not Applicable Physical Examination: Appetite: Decreased, Weight Loss Energy: Decreased Interest: Decreased Mental Status Examination: Psychomotor Activity: Slow Speech: Soft AFFECT: Depressed, Anxious Orientation: x3 Cognition: Alert Insight: Moderate Judgement: Moderate Laboratory Results Laboratory Tests Test 09/03/18 12:06 09/03/18 16:47 09/03/18 20:56 09/04/18 05:39 Bedside Glucose 147 mg/dL 105 mg/dL 123 mg/dL White Blood Count 8.7 10^3/ul Red Blood Count 3.52 10^6/ul Hemoglobin 11.1 g/dl Hematocrit 35.7 % Mean Corpuscular 101.4 fl Volume Mean Corpuscular 31.5 pg Hemoglobin Mean Corpuscular 31.1 g/dl Hemoglobin Concent Red Cell 13.5 % Distribution Width Platelet Count 196 10^3/UL Mean Platelet 9.6 fl Volume Immature 0.600 % Granulocytes % Neutrophils % 59.1 % Lymphocytes % 22.4 % Monocytes % 9.7 % Eosinophils % 7.6 % Basophils % 0.6 % Nucleated Red 0.0 /100WBC Blood Cells % Immature 0.050 10^3/ul Granulocytes # Neutrophils # 5.1 10^3/ul Lymphocytes # 1.9 10^3/ul Monocytes # 0.8 10^3/ul Eosinophils # 0.7 10^3/ul Basophils # 0.1 10^3/ul Nucleated Red 0.0 10^3/ul Blood Cells # Sodium Level 141 mmol/L Potassium Level 3.8 mmol/L Chloride Level 104 mmol/L Carbon Dioxide 29 mmol/L Level Anion Gap 8 Blood Urea 21 mg/dl Nitrogen Creatinine 1.12 mg/dl Est Glomerular mL/min Filtrat Rate mL/min Glucose Level 108 mg/dl Calcium Level 9.2 mg/dl Magnesium Level 2.1 mg/dl Total Bilirubin 0.8 mg/dl Direct Bilirubin 0.00 mg/dl Indirect Bilirubin 0.8 mg/dl Aspartate Amino 43 IU/L Transf (AST/SGOT) Alanine 26 IU/L Aminotransferase ( ALT/SGPT) Alkaline 148 IU/L Phosphatase Total Protein 7.3 g/dl Albumin 3.4 g/dl Globulin 3.90 g/dl Albumin/Globulin 0.87 Ratio Hepatitis B NEGATIVE Surface Antigen Hepatitis B Core NEGATIVE Total Antibody Hepatitis C NEGATIVE Antibody Test 09/04/18 07:14 09/04/18 11:51 09/04/18 17:12 09/04/18 20:14 Bedside Glucose 110 mg/dL 121 mg/dL 112 mg/dL 143 mg/dL Test 09/05/18 01:50 09/05/18 05:43 09/05/18 07:35 Bedside Glucose 96 mg/dL 97 mg/dL White Blood Count 7.5 10^3/ul Red Blood Count 3.58 10^6/ul Hemoglobin 11.2 g/dl Hematocrit 36.4 % Mean Corpuscular 101.7 fl Volume Mean Corpuscular 31.3 pg Hemoglobin Mean Corpuscular 30.8 g/dl Hemoglobin Concent Red Cell 13.4 % Distribution Width Platelet Count 182 10^3/UL Mean Platelet 9.6 fl Volume Immature 0.700 % Granulocytes % Neutrophils % 52.5 % Lymphocytes % 26.4 % Monocytes % 10.6 % Eosinophils % 9.1 % Basophils % 0.7 % Nucleated Red 0.0 /100WBC Blood Cells % Immature 0.050 10^3/ul Granulocytes # Neutrophils # 3.9 10^3/ul Lymphocytes # 2.0 10^3/ul Monocytes # 0.8 10^3/ul Eosinophils # 0.7 10^3/ul Basophils # 0.1 10^3/ul Nucleated Red 0.0 10^3/ul Blood Cells # Sodium Level 142 mmol/L Potassium Level 3.8 mmol/L Chloride Level 105 mmol/L Carbon Dioxide 32 mmol/L Level Anion Gap 5 Blood Urea 22 mg/dl Nitrogen Creatinine 1.11 mg/dl Est Glomerular mL/min Filtrat Rate mL/min Glucose Level 99 mg/dl Calcium Level 8.9 mg/dl Magnesium Level 2.1 mg/dl Total Bilirubin 0.8 mg/dl Direct Bilirubin 0.00 mg/dl Indirect Bilirubin 0.8 mg/dl Aspartate Amino 48 IU/L Transf (AST/SGOT) Alanine 25 IU/L Aminotransferase ( ALT/SGPT) Alkaline 140 IU/L Phosphatase Total Protein 7.1 g/dl Albumin 3.5 g/dl Globulin 3.60 g/dl Albumin/Globulin 0.97 Ratio Assessment and Plan Assessment/Diagnosis Diagnosis Major Depressive disorder single Episode, without Psychosis Recommendation/Plan Medication Management Remeron 15mg QHS Multiple antipsychotics: No Psychotherapy PROVIDE SUPPORTIVE THERAPY Discharge Disposition: Other Legal Status: Voluntary GARCÍA HUANG NP Sep 05, 2018 08:31
[2018-09-05] MEDS: HYDROCORTISONE 25 MG SUPP PR SCH ×2 (09:36→20:16)
[2018-09-05] MEDS: CHOLECALCIFEROL 1,000 UNIT TAB PO SCH (09:36)
[2018-09-05] MEDS: DOCUSATE SODIUM 100 MG CAP PO SCH ×2 (09:36→20:24)
[2018-09-05] MEDS: ASPIRIN 81 MG TAB PO SCH (09:36)
[2018-09-05] MEDS: SUCRALFATE (100 MG/ML) 10ML CUP PO SCH ×4 (09:36→20:16)
[2018-09-05] MEDS: SERTRALINE 50 MG TAB PO SCH (09:36)
[2018-09-05] MEDS: LISINOPRIL 20 MG TAB PO SCH (09:37)
[2018-09-05 11:09] VITALS: BP 143/63; PULSE 62; RESP 20
--- NOTE | 2018-09-05 13:34 | CONS ---
Assessment/Plan Assessment/Plan Hospital Course (Demo Recall) IMPRESSION: 1. Shortness of breath, assess for congestive heart failure.-Echo this admit 09/02 EF 60-65 2. History of aortic valve replacement with a bovine bioprosthetic valve.- proper function by echo 3. Cerebrovascular accident, acute, at time of valve replacement with now ongoing dizziness and weakness, as well as loss of vision per daughter. 4. Hypertension, borderline. 5. Hypothyroidism. 6. Diabetes mellitus. 7. Dyslipidemia. 8. Renal failure-stable 9. anterior mediastinal fluid collection versus loculated pericardial effusion by CT- would likely have been related to recent surgery and no significant pericardial effusion seen by echo so would favor mediastinal fluid collection at this time Recc: -Tele -Contnue asa -Continue acei -continue high dose statin -ongoing neuro eval -Follow volume status closely and creatnine closely with lasix now held Consultation Date/Type/Reason Admit Date/Time Aug 31, 2018 at 19:25 Initial Consult Date 09/01/18 Type of Consult Cardiology Reason for Consultation AVR Requesting Provider: ALEX CADE Date/Time of Note DATE: 09/05/18 TIME: 13:28 Exam/Review of Systems Vital Signs Vitals Vital Signs Date Temp Pulse Resp B/P (MAP) Pulse Ox O2 O2 Flow FiO2 Time Delivery Rate 09/05/18 98.2 62 20 143/63 97 Nasal 11:09 (89) Cannula 09/05/18 2.0 08:26 Intake and Output 09/04/18 09/04/18 09/05/18 1515:00 23:00 07:00 IntakeIntake Total 200 ml 440 ml 1200 ml BalanceBalance 200 ml 440 ml 1200 ml Exam Exam Review of Systems: CONSTITUTIONAL: No fevers, chills. PULMONARY: No sob CARDIOVASCULAR: No chest pain/palpitations GASTROINTESTINAL: No nausea/vomiting. GENITOURINARY: No hematuria/dysuria. MUSCULOSKELETAL: No myagias/arthalgias. PSYCHIATRIC: The patient denies depression. NEUROLOGIC: dizzness Constitutional: alert Psych: no complaints Head: normocephalic ENMT: mucosa pink and moist Neck: supple, jvd (9 cm water) Respiratory: diminished breath sounds (at bases/B) Cardiovascular: regular rate and rhythm Gastrointestinal: soft, non-tender Musculoskeletal: muscle tone (normal) Extremities: edema (none) Neurological: other (No focal deficits) Labs Result Diagram: 09/05/18 0543 09/05/18 0543 Results 24hrs Laboratory Tests Test 09/04/18 17:12 09/04/18 20:14 09/05/18 01:50 09/05/18 05:43 Bedside Glucose 112 143 96 White Blood Count 7.5 Red Blood Count 3.58 L Hemoglobin 11.2 L Hematocrit 36.4 L Mean Corpuscular 101.7 H Volume Mean Corpuscular 31.3 Hemoglobin Mean Corpuscular 30.8 L Hemoglobin Concent Red Cell 13.4 Distribution Width Platelet Count 182 Mean Platelet Volume 9.6 Immature 0.700 H Granulocytes % Neutrophils % 52.5 Lymphocytes % 26.4 Monocytes % 10.6 Eosinophils % 9.1 H Basophils % 0.7 Nucleated Red Blood 0.0 Cells % Immature 0.050 H Granulocytes # Neutrophils # 3.9 Lymphocytes # 2.0 Monocytes # 0.8 Eosinophils # 0.7 H Basophils # 0.1 Nucleated Red Blood 0.0 Cells # Sodium Level 142 Potassium Level 3.8 Chloride Level 105 Carbon Dioxide Level 32 H Anion Gap 5 Blood Urea Nitrogen 22 H Creatinine 1.11 H Est Glomerular Filtrat Rate mL/min Glucose Level 99 Calcium Level 8.9 Magnesium Level 2.1 Total Bilirubin 0.8 Direct Bilirubin 0.00 Indirect Bilirubin 0.8 Aspartate Amino 48 H Transf (AST/SGOT) Alanine 25 Aminotransferase (AL T/SGPT) Alkaline Phosphatase 140 H Total Protein 7.1 Albumin 3.5 Globulin 3.60 H Albumin/Globulin 0.97 Ratio Test 09/05/18 07:35 09/05/18 11:50 Bedside Glucose 97 161 Medications Medications Current Medications Budesonide (Pulmicort (Neb)) 0.5 mg BID HHN Last administered on 09/05/18at 07:39; Admin Dose 0.5 MG; Start 08/31/18 at 21:30 Levalbuterol (Xopenex Neb) 0.63 mg Q4H PRN HHN WHEEZING AND SOB Last administered on 09/01/18at 03:33; Admin Dose 0.63 MG; Start 08/31/18 at 21:30 Lisinopril (Zestril) 20 mg DAILY PO Last administered on 09/05/18at 09:37; Admin Dose 20 MG; Start 09/01/18 at 09:00 Magnesium Hydroxide (Milk Of Mag) 30 ml DAILY PRN PO NEEDED; Start 08/31/18 at 21:30 Sertraline HCl (Zoloft) 25 mg DAILY PO Last administered on 09/05/18 09:36; Admin Dose 25 MG; Start 09/01/18 at 09:00 IV Flush (NS 3 ml) 3 ml PER PROTOCOL IV ; Start 08/31/18 at 21:30 Aspirin (Aspirin) 81 mg DAILY PO Last administered on 09/05/18 09:36; Admin Dose 81 MG; Start 09/01/18 at 09:00 Acetaminophen (Tylenol Tab) 650 mg Q6H PRN PO .PAIN 1-3 OR TEMP Last administered on 09/02/18 10:26; Admin Dose 650 MG; Start 08/31/18 at 21:30 Docusate Sodium (Colace) 100 mg Q12H PO Last administered on 09/05/18 09:36; Admin Dose 100 MG; Start 08/31/18 at 21:30 Bisacodyl (Dulcolax) 5 mg DAILY PRN PO .CONSTIPATION Last administered on 09/05/18 12:27; Admin Dose 5 MG; Start 08/31/18 at 21:30 Ondansetron HCl (Zofran Inj) 4 mg Q4H PRN IV NAUSEA AND/OR VOMITING Last administered on 09/04/18 08:46; Admin Dose 4 MG; Start 08/31/18 at 23:30 Metoclopramide HCl (Reglan) 10 mg Q6 PRN IV NAUSEA AND/OR VOMITING Last administered on 09/03/18 16:18; Admin Dose 10 MG; Start 08/31/18 at 23:30 Hydrocortisone (Anusol-Hc Supp) 25 mg BID OR Last administered on 09/05/18 09:36; Admin Dose 25 MG; Start 09/01/18 at 09:00 Docusate Sodium (Colace) 100 mg DAILY PRN PO CONSTIPATION; Start 09/01/18 at 0 1:00 Cholecalciferol (Vitamin D) 1,000 unit DAILY PO Last administered on 09/05/18 09:36; Admin Dose 1,000 UNIT; Start 09/01/18 at 09:00 Meclizine HCl (Antivert) 25 mg TID PRN PO NAUSEA AND/OR VOMITING; Start 09/01/18 at 01:00 Miscellaneous Information 1 ea NOTE XX ; Start 09/01/18 at 02:00 Glucose (Glutose) 15 gm Q15M PRN PO DECREASED GLUCOSE; Start 09/01/18 at 02:00 Glucose (Glutose) 22.5 gm Q15M PRN PO DECREASED GLUCOSE; Start 09/01/18 at 02:00 Dextrose (D50w Syringe) 25 ml Q15M PRN IV DECREASED GLUCOSE; Start 09/01/18 at 02:00 Dextrose (D50w Syringe) 50 ml Q15M PRN IV DECREASED GLUCOSE; Start 09/01/18 at 02:00 Glucagon (Glucagen) 1 mg Q15M PRN IM DECREASED GLUCOSE; Start 09/01/18 at 02:00 Glucose (Glutose) 15 gm Q15M PRN BUCCAL DECREASED GLUCOSE; Start 09/01/18 at 02:00 Levothyroxine Sodium (Synthroid) 100 mcg DAILY@06 PO Last administered on 09/05/18at 06:19; Admin Dose 100 MCG; Start 09/01/18 at 06:00 Hydralazine HCl (Apresoline) 10 mg Q4H PRN IV ELEVATED BLOOD PRESSURE Last administered on 09/03/18at 01:02; Admin Dose 10 MG; Start 09/01/18 at 09:00 Atorvastatin Calcium (Lipitor) 80 mg HS PO Last administered on 09/04/18at 20:17; Admin Dose 80 MG; Start 09/01/18 at 21:00 Insulin Aspart (Novolog Insulin Pen) NOVOLOG *MILD* ALGORI... AC MEALS AND BEDTIME SC Last administered on 09/05/18at 11:52; Admin Dose 1 UNIT; Start 09/02/18 at 12:00 Sucralfate (Carafate Susp) 1 gm QID PO Last administered on 09/05/18at 12:27; Admin Dose 1 GM; Start 09/03/18 at 13:00 Acetaminophen/ Hydrocodone Bitart ([place] (5/325)) 1 tab Q4H PRN PO MODERATE PAIN LEVEL 4-6 Last administered on 09/04/18at 14:36; Admin Dose 1 TAB; Start 09/03/18 at 10:00 Scopolamine (Transderm-Scop) 1 patch Q72H TRANSDERM Last administered on 09/03/18at 12:07; Admin Dose 1 PATCH; Start 09/03/18 at 11:30 Pantoprazole (Protonix Iv) 40 mg BID@0600,1800 IV Last administered on 09/05/18at 06:18; Admin Dose 40 MG; Start 09/04/18 at 18:00 Polyethylene Glycol (Miralax) 17 gm DAILY PRN PO CONSTIPATION; Start 09/04/18 at 12:00 Mirtazapine (Remeron) 15 mg HS PO ; Start 09/05/18 at 21:00 TIANA PENA Sep 05, 2018 13:34
--- NOTE | 2018-09-05 13:34 | PN ---
Date/Time of Note Date/Time of Note DATE: 09/05/18 TIME: 13:30 Assessment/Plan VTE Prophylaxis Risk score (from Ns)>0 risk: 3 SCD applied (from Ns): Yes Pharmacological prophylaxis: NA/contraindicated Pharm contraindication: other (scds) Lines/Catheters IV Catheter Type (from [facility]): [place] Urinary Cath still in place: No Assessment/Plan Hospital Course Summary Assessment and Plan: Assessment: Epigastric pain/nausea- resolved Imaging compatible with liver cirrhosis -Hepatitis B/C serology negative Dizziness- started post open heart surgery about 1-2 months ago Recent CVA Aortic stenosis s/p valve replacement NIA HTN Hypothyroidism Plan: Continue PPI/Carafate Monitor need for EGD- currently no plans- however we would need cardiac clearance prior to endoscopic evaluation if required in the near future Patient seen in collaboration with Dr. Guerrero Subjective: Course reviewed with nursing staff Patient interviewed and examined All labs, imaging and other results reviewed The patient resting in bed, appears comfortable a concrete carpenter was used. Currently patient denies nausea/vomiting or abd pain. Will monitor PHYSICAL EXAMINATION: GENERAL: Alert & oriented x 3, in no acute distress SKIN: No lesions, no stigmata chronic liver disease, no evidence of bleeding diathesis NECK: Supple, no masses. CHEST: Inspection within normal limits. CARDIOVASCULAR: Heart: Regular rate and rhythm, no murmurs, gallops or rubs. No pulsatile abdominal mass RESPIRATORY: Lungs clear to auscultation and percussion, no wheezing, no rubs GASTROINTESTINAL AND LIVER: Abdomen: Soft, non tenderness, non-distended, no rebound tenderness, normoactive bowel sounds. Rectal: Deferred. EXTREMITIES: No cyanosis, clubbing or edema. Result Diagram: 09/05/18 0543 09/05/18 0543 Results 24hrs Laboratory Tests Test 09/04/18 17:12 09/04/18 20:14 09/05/18 01:50 09/05/18 05:43 Bedside Glucose 112 143 96 White Blood Count 7.5 Red Blood Count 3.58 L Hemoglobin 11.2 L Hematocrit 36.4 L Mean Corpuscular 101.7 H Volume Mean Corpuscular 31.3 Hemoglobin Mean Corpuscular 30.8 L Hemoglobin Concent Red Cell 13.4 Distribution Width Platelet Count 182 Mean Platelet Volume 9.6 Immature 0.700 H Granulocytes % Neutrophils % 52.5 Lymphocytes % 26.4 Monocytes % 10.6 Eosinophils % 9.1 H Basophils % 0.7 Nucleated Red Blood 0.0 Cells % Immature 0.050 H Granulocytes # Neutrophils # 3.9 Lymphocytes # 2.0 Monocytes # 0.8 Eosinophils # 0.7 H Basophils # 0.1 Nucleated Red Blood 0.0 Cells # Sodium Level 142 Potassium Level 3.8 Chloride Level 105 Carbon Dioxide Level 32 H Anion Gap 5 Blood Urea Nitrogen 22 H Creatinine 1.11 H Est Glomerular Filtrat Rate mL/min Glucose Level 99 Calcium Level 8.9 Magnesium Level 2.1 Total Bilirubin 0.8 Direct Bilirubin 0.00 Indirect Bilirubin 0.8 Aspartate Amino 48 H Transf (AST/SGOT) Alanine 25 Aminotransferase (AL T/SGPT) Alkaline Phosphatase 140 H Total Protein 7.1 Albumin 3.5 Globulin 3.60 H Albumin/Globulin 0.97 Ratio Test 09/05/18 07:35 09/05/18 11:50 Bedside Glucose 97 161 Exam/Review of Systems Exam Vitals Vital Signs Date Temp Pulse Resp B/P (MAP) Pulse Ox O2 O2 Flow FiO2 Time Delivery Rate 09/05/18 98.2 62 20 143/63 97 Nasal 11:09 (89) Cannula 09/05/18 2.0 08:26 Intake and Output 09/04/18 09/04/18 09/05/18 1515:00 23:00 07:00 IntakeIntake Total 200 ml 440 ml 1200 ml BalanceBalance 200 ml 440 ml 1200 ml Results Results 24hrs Laboratory Tests Test 09/04/18 17:12 09/04/18 20:14 09/05/18 01:50 09/05/18 05:43 Bedside Glucose 112 143 96 White Blood Count 7.5 Red Blood Count 3.58 L Hemoglobin 11.2 L Hematocrit 36.4 L Mean Corpuscular 101.7 H Volume Mean Corpuscular 31.3 Hemoglobin Mean Corpuscular 30.8 L Hemoglobin Concent Red Cell 13.4 Distribution Width Platelet Count 182 Mean Platelet Volume 9.6 Immature 0.700 H Granulocytes % Neutrophils % 52.5 Lymphocytes % 26.4 Monocytes % 10.6 Eosinophils % 9.1 H Basophils % 0.7 Nucleated Red Blood 0.0 Cells % Immature 0.050 H Granulocytes # Neutrophils # 3.9 Lymphocytes # 2.0 Monocytes # 0.8 Eosinophils # 0.7 H Basophils # 0.1 Nucleated Red Blood 0.0 Cells # Sodium Level 142 Potassium Level 3.8 Chloride Level 105 Carbon Dioxide Level 32 H Anion Gap 5 Blood Urea Nitrogen 22 H Creatinine 1.11 H Est Glomerular Filtrat Rate mL/min Glucose Level 99 Calcium Level 8.9 Magnesium Level 2.1 Total Bilirubin 0.8 Direct Bilirubin 0.00 Indirect Bilirubin 0.8 Aspartate Amino 48 H Transf (AST/SGOT) Alanine 25 Aminotransferase (AL T/SGPT) Alkaline Phosphatase 140 H Total Protein 7.1 Albumin 3.5 Globulin 3.60 H Albumin/Globulin 0.97 Ratio Test 09/05/18 07:35 09/05/18 11:50 Bedside Glucose 97 161 Medications Medication Current Medications Budesonide (Pulmicort (Neb)) 0.5 mg BID HHN Last administered on 09/05/18 07:39; Admin Dose 0.5 MG; Start 08/31/18 at 21:30 Levalbuterol (Xopenex Neb) 0.63 mg Q4H PRN HHN WHEEZING AND SOB Last adminis tered on 09/01/18 03:33; Admin Dose 0.63 MG; Start 08/31/18 at 21:30 Lisinopril (Zestril) 20 mg DAILY PO Last administered on 09/05/18 09:37; Admin Dose 20 MG; Start 09/01/18 at 09:00 Magnesium Hydroxide (Milk Of Mag) 30 ml DAILY PRN PO NEEDED; Start 08/31/18 at 21:30 Sertraline HCl (Zoloft) 25 mg DAILY PO Last administered on 09/05/18 09:36; Admin Dose 25 MG; Start 09/01/18 at 09:00 IV Flush (NS 3 ml) 3 ml PER PROTOCOL IV ; Start 08/31/18 at 21:30 Aspirin (Aspirin) 81 mg DAILY PO Last administered on 09/05/18 09:36; Admin Dose 81 MG; Start 09/01/18 at 09:00 Acetaminophen (Tylenol Tab) 650 mg Q6H PRN PO .PAIN 1-3 OR TEMP Last administered on 09/02/18 10:26; Admin Dose 650 MG; Start 08/31/18 at 21:30 Docusate Sodium (Colace) 100 mg Q12H PO Last administered on 7/31/19at 09:36; Admin Dose 100 MG; Start 08/31/18 at 21:30 Bisacodyl (Dulcolax) 5 mg DAILY PRN PO .CONSTIPATION Last administered on 09/05/18at 12:27; Admin Dose 5 MG; Start 08/31/18 at 21:30 Ondansetron HCl (Zofran Inj) 4 mg Q4H PRN IV NAUSEA AND/OR VOMITING Last administered on 09/04/18at 08:46; Admin Dose 4 MG; Start 08/31/18 at 23:30 Metoclopramide HCl (Reglan) 10 mg Q6 PRN IV NAUSEA AND/OR VOMITING Last ad ministered on 09/03/18at 16:18; Admin Dose 10 MG; Start 08/31/18 at 23:30 Hydrocortisone (Anusol-Hc Supp) 25 mg BID [place] Last administered on 09/05/18at 09:36; Admin Dose 25 MG; Start 09/01/18 at 09:00 Docusate Sodium (Colace) 100 mg DAILY PRN PO CONSTIPATION; Start 09/01/18 at 01:00 Cholecalciferol (Vitamin D) 1,000 unit DAILY PO Last administered on 09/05/18at 09:36; Admin Dose 1,000 UNIT; Start 09/01/18 at 09:00 Meclizine HCl (Antivert) 25 mg TID PRN PO NAUSEA AND/OR VOMITING; Start 09/01/18 at 01:00 Miscellaneous Information 1 ea NOTE XX ; Start 09/01/18 at 02:00 Glucose (Glutose) 15 gm Q15M PRN PO DECREASED GLUCOSE; Start 09/01/18 at 02:00 Glucose (Glutose) 22.5 gm Q15M PRN PO DECREASED GLUCOSE; Start 09/01/18 at 02:00 Dextrose (D50w Syringe) 25 ml Q15M PRN IV DECREASED GLUCOSE; Start 09/01/18 at 02:00 Dextrose (D50w Syringe) 50 ml Q15M PRN IV DECREASED GLUCOSE; Start 09/01/18 at 02:00 Glucagon (Glucagen) 1 mg Q15M PRN IM DECREASED GLUCOSE; Start 09/01/18 at 02:00 Glucose (Glutose) 15 gm Q15M PRN BUCCAL DECREASED GLUCOSE; Start 09/01/18 at 02:00 Levothyroxine Sodium (Synthroid) 100 mcg DAILY@06 PO Last administered on 09/05/18 06:19; Admin Dose 100 MCG; Start 09/01/18 at 06:00 Hydralazine HCl (Apresoline) 10 mg Q4H PRN IV ELEVATED BLOOD PRESSURE Last administered on 09/03/18 01:02; Admin Dose 10 MG; Start 09/01/18 at 09:00 Atorvastatin Calcium (Lipitor) 80 mg HS PO Last administered on 09/04/18 20:17; Admin Dose 80 MG; Start 09/01/18 at 21:00 Insulin Aspart (Novolog Insulin Pen) NOVOLOG *MILD* ALGORI... AC MEALS AND BEDTIME SC Last administered on 09/05/18 11:52; Admin Dose 1 UNIT; Start 09/02/18 at 12:00 Sucralfate (Carafate Susp) 1 gm QID PO Last administered on 09/05/18 12:27; Admin Dose 1 GM; Start 09/03/18 at 13:00 Acetaminophen/ Hydrocodone Bitart ([place] (5/325)) 1 tab Q4H PRN PO MODERATE PAIN LEVEL 4-6 Last administered on 09/04/18 14:36; Admin Dose 1 TAB; Start 09/03/18 at 10:00 Scopolamine (Transderm-Scop) 1 patch Q72H TRANSDERM Last administered on 09/03/18 12:07; Admin Dose 1 PATCH; Start 09/03/18 at 11:30 Pantoprazole (Protonix Iv) 40 mg BID@0600,1800 IV Last administered on 09/05/18 06:18; Admin Dose 40 MG; Start 09/04/18 at 18:00 Polyethylene Glycol (Miralax) 17 gm DAILY PRN PO CONSTIPATION; Start 09/04/18 at 12:00 Mirtazapine (Remeron) 15 mg HS PO ; Start 09/05/18 at 21:00 BERNICE DAI Sep 05, 2018 13:34
--- NOTE | 2018-09-05 14:20 | CONS ---
Assessment/Plan Assessment/Plan Assessment/Plan (Daily) Recent aortic valve replacement with loculated pericardial effusion no signs of pericardial tamponade Need to follow-up with urological examination can be followed with her own cardiac surgeon as an outpatient Consultation Date/Type/Reason Admit Date/Time Aug 31, 2018 at 19:25 Type of Consult 73-year-old female with a recent aortic valve replacement patient is being admitted because of lightheadedness currently being worked up for lightheaded ness part of her work-up is included radiological examination which is showed a loculated pericardial effusion patient has no signs of pericardial tamponade Date/Time of Note DATE: 09/05/18 TIME: 14:16 Respiratory: No no complaints, No pain, No cough, No pleuritic pain, No shortness of breath, No sputum, No wheezing, No other Gastrointestinal: no complaints Genitourinary: no complaints Musculoskeletal: no complaints Skin: no complaints Past Medical History Home Meds Reported Medications Furosemide* (Furosemide*) 20 Mg Tablet, 10 MG PO DAILY, #60 TAB 09/03/18 Lisinopril* (Lisinopril*) 20 Mg Tablet, 20 MG PO DAILY, #30 TAB HOLD IF SBP<110 08/31/18 Budesonide* (Budesonide*) 0.5 Mg/2 Ml Ampul.neb, 0.5 MG INHALATION BID, AMP 08/31/18 Cephalexin* (Cephalexin*) 500 Mg Capsule, 500 MG PO Q8, #21 CAP FOR 7 DAYS,STOP DATE 09/01/18 08/31/18 Sertraline Hcl* (Zoloft*) 25 Mg Tablet, 25 MG PO DAILY, #30 TAB 08/31/18 Acetaminophen* (Acetaminophen*) 500 MG Extra Strength Tablet, 500 MG PO Q4H PRN for MILD PAIN(1-3)OR ELEVATED TEMP, TAB 08/31/18 Acetaminophen* (Acetaminophen*) 325 Mg Tablet, 650 MG PO Q4H PRN for PAIN LEVEL 4-6/10, #30 TAB AND FEVER>100F 08/31/18 Sodium Phosphate,Zavala-Dibasic (Enema Ready To Use) 133 Ml Enema, 133 ML RC Q2D, ENEMA 08/31/18 Bisacodyl (Dulcolax) 10 Mg Supp.rect, 10 MG RC DAILY, SUPP.RECT 08/31/18 Magnesium Hydroxide* (Milk Of Magnesia*) 400 Mg/5 Ml Oral.susp, 30 ML PO DAILY PRN for NEEDED, ML 08/31/18 Levalbuterol Hcl* (Levalbuterol Hcl*) 0.63 Mg/3 Ml Vial.neb, 0.63 MG INHALATION Q4H PRN for WHEEZING AND SOB, VIAL 08/31/18 Oxycodone Hcl* (IR) (Oxycodone Hcl*) 5 Mg Capsule, 5 MG PO Q6H PRN for PAIN LEVEL -11/15, CAP 08/31/18 Insulin Lispro (Humalog) 100 Unit/1 Ml Cartridge, 0 SQ SLIDING SCALE, EA IF BS 0-150=0 UNIT, 151-200=2 UNITS,201-250=4 UNITS, 251-300=6 UNITS, 301-350=8 UNITS, 351-400=10 UNITS ABOVE 400=12 UNITS AND CALL 08/31/18 Medications Current Medications Budesonide (Pulmicort (Neb)) 0.5 mg BID HHN Last administered on 09/05/18at 07:39; Admin Dose 0.5 MG; Start 08/31/18 at 21:30 Levalbuterol (Xopenex Neb) 0.63 mg Q4H PRN HHN WHEEZING AND SOB Last administered on 09/01/18at 03:33; Admin Dose 0.63 MG; Start 08/31/18 at 21:30 Lisinopril (Zestril) 20 mg DAILY PO Last administered on 09/05/18at 09:37; Admin Dose 20 MG; Start 09/01/18 at 09:00 Magnesium Hydroxide (Milk Of Mag) 30 ml DAILY PRN PO NEEDED; Start 08/31/18 at 21:30 Sertraline HCl (Zoloft) 25 mg DAILY PO Last administered on 09/05/18at 09:36; Admin Dose 25 MG; Start 09/01/18 at 09:00 IV Flush (NS 3 ml) 3 ml PER PROTOCOL IV ; Start 08/31/18 at 21:30 Aspirin (Aspirin) 81 mg DAILY PO Last administered on 09/05/18at 09:36; Admin Dose 81 MG; Start 09/01/18 at 09:00 Acetaminophen (Tylenol Tab) 650 mg Q6H PRN PO .PAIN 1-3 OR TEMP Last administered on 09/02/18 10:26; Admin Dose 650 MG; Start 08/31/18 at 21:30 Docusate Sodium (Colace) 100 mg Q12H PO Last administered on 09/05/18 09:36; Admin Dose 100 MG; Start 08/31/18 at 21:30 Bisacodyl (Dulcolax) 5 mg DAILY PRN PO .CONSTIPATION Last administered on 09/05/18 12:27; Admin Dose 5 MG; Start 08/31/18 at 21:30 Ondansetron HCl (Zofran Inj) 4 mg Q4H PRN IV NAUSEA AND/OR VOMITING Last administered on 09/04/18 08:46; Admin Dose 4 MG; Start 08/31/18 at 23:30 Metoclopramide HCl (Reglan) 10 mg Q6 PRN IV NAUSEA AND/OR VOMITING Last administered on 09/03/18 16:18; Admin Dose 10 MG; Start 08/31/18 at 23:30 Hydrocortisone (Anusol-Hc Supp) 25 mg BID ND Last administered on 09/05/18 09:36; Admin Dose 25 MG; Start 09/01/18 at 09:00 Docusate Sodium (Colace) 100 mg DAILY PRN PO CONSTIPATION; Start 09/01/18 at 01:00 Cholecalciferol (Vitamin D) 1,000 unit DAILY PO Last administered on 09/05/18 09:36; Admin Dose 1,000 UNIT; Start 09/01/18 at 09:00 Meclizine HCl (Antivert) 25 mg TID PRN PO NAUSEA AND/OR VOMITING; Start 09/01/18 at 01:00 Miscellaneous Information 1 ea NOTE XX ; Start 09/01/18 at 02:00 Glucose (Glutose) 15 gm Q15M PRN PO DECREASED GLUCOSE; Start 09/01/18 at 02:00 Glucose (Glutose) 22.5 gm Q15M PRN PO DECREASED GLUCOSE; Start 09/01/18 at 02:00 Dextrose (D50w Syringe) 25 ml Q15M PRN IV DECREASED GLUCOSE; Start 09/01/18 at 02:00 Dextrose (D50w Syringe) 50 ml Q15M PRN IV DECREASED GLUCOSE; Start 09/01/18 at 02:00 Glucagon (Glucagen) 1 mg Q15M PRN IM DECREASED GLUCOSE; Start 09/01/18 at 02:00 Glucose (Glutose) 15 gm Q15M PRN BUCCAL DECREASED GLUCOSE; Start 09/01/18 at 02:00 Levothyroxine Sodium (Synthroid) 100 mcg DAILY@06 PO Last administered on 09/05/18at 06:19; Admin Dose 100 MCG; Start 09/01/18 at 06:00 Hydralazine HCl (Apresoline) 10 mg Q4H PRN IV ELEVATED BLOOD PRESSURE Last administered on 09/03/18at 01:02; Admin Dose 10 MG; Start 09/01/18 at 09:00 Atorvastatin Calcium (Lipitor) 80 mg HS PO Last administered on 09/04/18at 20:17; Admin Dose 80 MG; Start 09/01/18 at 21:00 Insulin Aspart (Novolog Insulin Pen) NOVOLOG *MILD* ALGORI... AC MEALS AND BEDTIME SC Last administered on 09/05/18at 11:52; Admin Dose 1 UNIT; Start 09/02/18 at 12:00 Sucralfate (Carafate Susp) 1 gm QID PO Last administered on 09/05/18at 12:27; Admin Dose 1 GM; Start 09/03/18 at 13:00 Acetaminophen/ Hydrocodone Bitart ([place] (5/325)) 1 tab Q4H PRN PO MODERATE PAIN LEVEL 4-6 Last administered on 09/04/18at 14:36; Admin Dose 1 TAB; Start 09/03/18 at 10:00 Scopolamine (Transderm-Scop) 1 patch Q72H TRANSDERM Last administered on 09/03/18at 12:07; Admin Dose 1 PATCH; Start 09/03/18 at 11:30 Pantoprazole (Protonix Iv) 40 mg BID@0600,1800 IV Last administered on 09/05/18at 06:18; Admin Dose 40 MG; Start 09/04/18 at 18:00 Polyethylene Glycol (Miralax) 17 gm DAILY PRN PO CONSTIPATION; Start 09/04/18 at 12:00 Mirtazapine (Remeron) 15 mg HS PO ; Start 09/05/18 at 21:00 Allergies: Coded Allergies: No Known Allergy (Unverified , 08/31/18) Social History Alcohol Use: none Smoking Status: Never smoker Drug Use: none Exam/Review of Systems Exam Vitals Vital Signs Date Temp Pulse Resp B/P (MAP) Pulse Ox O2 O2 Flow FiO2 Time Delivery Rate 09/05/18 98.2 62 20 143/63 97 Nasal 11:09 (89) Cannula 09/05/18 2.0 08:26 Intake and Output 09/04/18 09/04/18 09/05/18 1515:00 23:00 07:00 IntakeIntake Total 200 ml 440 ml 1200 ml BalanceBalance 200 ml 440 ml 1200 ml Eyes: nl conjunctiva, EOMI, nl lids, nl sclera, PERRL ENMT: nl external ears & nose, nl lips & teeth, nl nasal mucosa & septum Neck: supple, non-tender Respiratory: clear to auscultation, normal air movement Cardiovascular: regular rate and rhythm, nl pulses Gastrointestinal: soft, nl liver, spleen, non-tender Musculoskeletal: nl extremities to inspection, nl gait and stance Results Result Diagram: 09/05/18 0543 09/05/18 0543 Results 24hrs Laboratory Tests Test 09/04/18 17:12 09/04/18 20:14 09/05/18 01:50 09/05/18 05:43 Bedside Glucose 112 143 96 White Blood Count 7.5 Red Blood Count 3.58 L Hemoglobin 11.2 L Hematocrit 36.4 L Mean Corpuscular 101.7 H Volume Mean Corpuscular 31.3 Hemoglobin Mean Corpuscular 30.8 L Hemoglobin Concent Red Cell 13.4 Distribution Width Platelet Count 182 Mean Platelet Volume 9.6 Immature 0.700 H Granulocytes % Neutrophils % 52.5 Lymphocytes % 26.4 Monocytes % 10.6 Eosinophils % 9.1 H Basophils % 0.7 Nucleated Red Blood 0.0 Cells % Immature 0.050 H Granulocytes # Neutrophils # 3.9 Lymphocytes # 2.0 Monocytes # 0.8 Eosinophils # 0.7 H Basophils # 0.1 Nucleated Red Blood 0.0 Cells # Sodium Level 142 Potassium Level 3.8 Chloride Level 105 Carbon Dioxide Level 32 H Anion Gap 5 Blood Urea Nitrogen 22 H Creatinine 1.11 H Est Glomerular Filtrat Rate mL/min Glucose Level 99 Calcium Level 8.9 Magnesium Level 2.1 Total Bilirubin 0.8 Direct Bilirubin 0.00 Indirect Bilirubin 0.8 Aspartate Amino 48 H Transf (AST/SGOT) Alanine 25 Aminotransferase (AL T/SGPT) Alkaline Phosphatase 140 H Total Protein 7.1 Albumin 3.5 Globulin 3.60 H Albumin/Globulin 0.97 Ratio Test 09/05/18 07:35 09/05/18 11:50 Bedside Glucose 97 161 Medications Medication Current Medications Budesonide (Pulmicort (Neb)) 0.5 mg BID HHN Last administered on 09/05/18 07:39; Admin Dose 0.5 MG; Start 08/31/18 at 21:30 Levalbuterol (Xopenex Neb) 0.63 mg Q4H PRN HHN WHEEZING AND SOB Last administered on 09/01/18 03:33; Admin Dose 0.63 MG; Start 08/31/18 at 21:30 Lisinopril (Zestril) 20 mg DAILY PO Last administered on 09/05/18 09:37; Admin Dose 20 MG; Start 09/01/18 at 09:00 Magnesium Hydroxide (Milk Of Mag) 30 ml DAILY PRN PO NEEDED; Start 08/31/18 at 21:30 Sertraline HCl (Zoloft) 25 mg DAILY PO Last administered on 09/05/18 09:36; Admin Dose 25 MG; Start 09/01/18 at 09:00 IV Flush (NS 3 ml) 3 ml PER PROTOCOL IV ; Start 08/31/18 at 21:30 Aspirin (Aspirin) 81 mg DAILY PO Last administered on 09/05/18 09:36; Admin Dose 81 MG; Start 09/01/18 at 09:00 Acetaminophen (Tylenol Tab) 650 mg Q6H PRN PO .PAIN 1-3 OR TEMP Last administered on 09/02/18 10:26; Admin Dose 650 MG; Start 08/31/18 at 21:30 Docusate Sodium (Colace) 100 mg Q12H PO Last administered on 09/05/18 09:36; Admin Dose 100 MG; Start 08/31/18 at 21:30 Bisacodyl (Dulcolax) 5 mg DAILY PRN PO .CONSTIPATION Last administered on 09/05/18 12:27; Admin Dose 5 MG; Start 08/31/18 at 21:30 Ondansetron HCl (Zofran Inj) 4 mg Q4H PRN IV NAUSEA AND/OR VOMITING Last administered on 09/04/18 08:46; Admin Dose 4 MG; Start 08/31/18 at 23:30 Metoclopramide HCl (Reglan) 10 mg Q6 PRN IV NAUSEA AND/OR VOMITING Last administered on 09/03/18at 16:18; Admin Dose 10 MG; Start 08/31/18 at 23:30 Hydrocortisone (Anusol-Hc Supp) 25 mg BID ND Last administered on 09/05/18at 09:36; Admin Dose 25 MG; Start 09/01/18 at 09:00 Docusate Sodium (Colace) 100 mg DAILY PRN PO CONSTIPATION; Start 09/01/18 at 01:00 Cholecalciferol (Vitamin D) 1,000 unit DAILY PO Last administered on 09/05/18at 09:36; Admin Dose 1,000 UNIT; Start 09/01/18 at 09:00 Meclizine HCl (Antivert) 25 mg TID PRN PO NAUSEA AND/OR VOMITING; Start 09/01/18 at 01:00 Miscellaneous Information 1 ea NOTE XX ; Start 09/01/18 at 02:00 Glucose (Glutose) 15 gm Q15M PRN PO DECREASED GLUCOSE; Start 09/01/18 at 02:00 Glucose (Glutose) 22.5 gm Q15M PRN PO DECREASED GLUCOSE; Start 09/01/18 at 02:00 Dextrose (D50w Syringe) 25 ml Q15M PRN IV DECREASED GLUCOSE; Start 09/01/18 at 02:00 Dextrose (D50w Syringe) 50 ml Q15M PRN IV DECREASED GLUCOSE; Start 09/01/18 at 02:00 Glucagon (Glucagen) 1 mg Q15M PRN IM DECREASED GLUCOSE; Start 09/01/18 at 02:00 Glucose (Glutose) 15 gm Q15M PRN BUCCAL DECREASED GLUCOSE; Start 09/01/18 at 02:00 Levothyroxine Sodium (Synthroid) 100 mcg DAILY@06 PO Last administered on 09/05/18at 06:19; Admin Dose 100 MCG; Start 09/01/18 at 06:00 Hydralazine HCl (Apresoline) 10 mg Q4H PRN IV ELEVATED BLOOD PRESSURE Last administered on 09/03/18at 01:02; Admin Dose 10 MG; Start 09/01/18 at 09:00 Atorvastatin Calcium (Lipitor) 80 mg HS PO Last administered on 09/04/18at 20:17; Admin Dose 80 MG; Start 09/01/18 at 21:00 Insulin Aspart (Novolog Insulin Pen) NOVOLOG *MILD* ALGORI... AC MEALS AND BEDTIME SC Last administered on 09/05/18at 11:52; Admin Dose 1 UNIT; Start 09/02/18 at 12:00 Sucralfate (Carafate Susp) 1 gm QID PO Last administered on 09/05/18at 12:27; Admin Dose 1 GM; Start 09/03/18 at 13:00 Acetaminophen/ Hydrocodone Bitart ([place] (5/325)) 1 tab Q4H PRN PO MODERATE PAIN LEVEL 4-6 Last administered on 09/04/18at 14:36; Admin Dose 1 TAB; Start 09/03/18 at 10:00 Scopolamine (Transderm-Scop) 1 patch Q72H TRANSDERM Last administered on 09/03/18at 12:07; Admin Dose 1 PATCH; Start 09/03/18 at 11:30 Pantoprazole (Protonix Iv) 40 mg BID@0600,1800 IV Last administered on 09/05/18at 06:18; Admin Dose 40 MG; Start 09/04/18 at 18:00 Polyethylene Glycol (Miralax) 17 gm DAILY PRN PO CONSTIPATION; Start 09/04/18 at 12:00 Mirtazapine (Remeron) 15 mg HS PO ; Start 09/05/18 at 21:00 DARSHAN ZAMORA MD Sep 05, 2018 14:20
[2018-09-05 15:34] VITALS: BP 145/63; PULSE 75; RESP 20
--- NOTE | 2018-09-05 17:53 | PN ---
Date/Time of Note Date/Time of Note DATE: 09/05/18 TIME: 17:51 Objective Vitals Vital Signs Date Temp Pulse Resp B/P (MAP) Pulse Ox O2 O2 Flow FiO2 Time Delivery Rate 09/05/18 97.8 75 20 145/63 97 Nasal 15:34 (90) Cannula 09/05/18 2.0 08:26 Intake and Output 09/04/18 09/04/18 09/05/18 1515:00 23:00 07:00 IntakeIntake Total 200 ml 440 ml 1200 ml BalanceBalance 200 ml 440 ml 1200 ml Results Result Diagram: 09/05/1843 09/05/18542 Medications Medications Current Medications Budesonide (Pulmicort (Neb)) 0.5 mg BID HHN Last administered on 09/05/18 07:39; Admin Dose 0.5 MG; Start 08/31/18 at 21:30 Levalbuterol (Xopenex Neb) 0.63 mg Q4H PRN HHN WHEEZING AND SOB Last administered on 09/01/18 03:33; Admin Dose 0.63 MG; Start 08/31/18 at 21:30 Lisinopril (Zestril) 20 mg DAILY PO Last administered on 09/05/18 09:37; Admin Dose 20 MG; Start 09/01/18 at 09:00 Magnesium Hydroxide (Milk Of Mag) 30 ml DAILY PRN PO NEEDED; Start 08/31/18 at 21:30 Sertraline HCl (Zoloft) 25 mg DAILY PO Last administered on 09/05/18 09:36; Admin Dose 25 MG; Start 09/01/18 at 09:00 IV Flush (NS 3 ml) 3 ml PER PROTOCOL IV ; Start 08/31/18 at 21:30 Aspirin (Aspirin) 81 mg DAILY PO Last administered on 09/05/18 09:36; Admin Dose 81 MG; Start 09/01/18 at 09:00 Acetaminophen (Tylenol Tab) 650 mg Q6H PRN PO .PAIN 1-3 OR TEMP Last administered on 09/02/18 10:26; Admin Dose 650 MG; Start 08/31/18 at 21:30 Docusate Sodium (Colace) 100 mg Q12H PO Last administered on 09/05/18 09:36; Admin Dose 100 MG; Start 08/31/18 at 21:30 Bisacodyl (Dulcolax) 5 mg DAILY PRN PO .CONSTIPATION Last administered on 09/05/18at 12:27; Admin Dose 5 MG; Start 08/31/18 at 21:30 Ondansetron HCl (Zofran Inj) 4 mg Q4H PRN IV NAUSEA AND/OR VOMITING Last administered on 09/04/18at 08:46; Admin Dose 4 MG; Start 08/31/18 at 23:30 Metoclopramide HCl (Reglan) 10 mg Q6 PRN IV NAUSEA AND/OR VOMITING Last administered on 09/03/18at 16:18; Admin Dose 10 MG; Start 08/31/18 at 23:30 Hydrocortisone (Anusol-Hc Supp) 25 mg BID MD Last administered on 09/05/18at 09:36; Admin Dose 25 MG; Start 09/01/18 at 09:00 Docusate Sodium (Colace) 100 mg DAILY PRN PO CONSTIPATION; Start 09/01/18 at 01:00 Cholecalciferol (Vitamin D) 1,000 unit DAILY PO Last administered on 09/05/18at 09:36; Admin Dose 1,000 UNIT; Start 09/01/18 at 09:00 Meclizine HCl (Antivert) 25 mg TID PRN PO NAUSEA AND/OR VOMITING; Start 09/01/18 at 01:00 Miscellaneous Information 1 ea NOTE XX ; Start 09/01/18 at 02:00 Glucose (Glutose) 15 gm Q15M PRN PO DECREASED GLUCOSE; Start 09/01/18 at 02:00 Glucose (Glutose) 22.5 gm Q15M PRN PO DECREASED GLUCOSE; Start 09/01/18 at 02:00 Dextrose (D50w Syringe) 25 ml Q15M PRN IV DECREASED GLUCOSE; Start 09/01/18 at 02:00 Dextrose (D50w Syringe) 50 ml Q15M PRN IV DECREASED GLUCOSE; Start 09/01/18 at 02:00 Glucagon (Glucagen) 1 mg Q15M PRN IM DECREASED GLUCOSE; Start 09/01/18 at 02:00 Glucose (Glutose) 15 gm Q15M PRN BUCCAL DECREASED GLUCOSE; Start 09/01/18 at 02:00 Levothyroxine Sodium (Synthroid) 100 mcg DAILY@06 PO Last administered on 09/05/18 06:19; Admin Dose 100 MCG; Start 09/01/18 at 06:00 Hydralazine HCl (Apresoline) 10 mg Q4H PRN IV ELEVATED BLOOD PRESSURE Last administered on 09/03/18 01:02; Admin Dose 10 MG; Start 09/01/18 at 09:00 Atorvastatin Calcium (Lipitor) 80 mg HS PO Last administered on 09/04/18 20:17; Admin Dose 80 MG; Start 09/01/18 at 21:00 Insulin Aspart (Novolog Insulin Pen) NOVOLOG *MILD* ALGORI... AC MEALS AND BEDTIME SC Last administered on 09/05/18 11:52; Admin Dose 1 UNIT; Start 09/02/18 at 12:00 Sucralfate (Carafate Susp) 1 gm QID PO Last administered on 09/05/18 17:08; Admin Dose 1 GM; Start 09/03/18 at 13:00 Acetaminophen/ Hydrocodone Bitart ([place] (5/325)) 1 tab Q4H PRN PO MODERATE PAIN LEVEL 4-6 Last administered on 09/04/18at 14:36; Admin Dose 1 TAB; Start 09/03/18 at 10:00 Scopolamine (Transderm-Scop) 1 patch Q72H TRANSDERM Last administered on 09/03/18 12:07; Admin Dose 1 PATCH; Start 09/03/18 at 11:30 Pantoprazole (Protonix Iv) 40 mg BID@0600,1800 IV Last administered on 09/05/18at 17:11; Admin Dose 40 MG; Start 09/04/18 at 18:00 Polyethylene Glycol (Miralax) 17 gm DAILY PRN PO CONSTIPATION; Start 09/04/18 at 12:00 Mirtazapine (Remeron) 15 mg HS PO ; Start 09/05/18 at 21:00 VTE Prophylaxis Risk score (from Nsg)>0 risk: 3 SCD applied (from Nsg): Yes Lines/Catheters IV Catheter Type: Jerez in Place: No Assessment/Plan Hospital Course Subjective Patient states she still has nausea but no abdominal pain. I was speaking to patient's daughter and it turns out patient appears to be fabricating some of her symptoms as she will states she has pain or nausea or vomiting to one person and then almost immediately deny her symptoms to another person. Objective Physical exam General: Patient is laying in bed and answers questions appropriately Mentation: Patient is alert and oriented Head: Normocephalic atraumatic Eyes: EOMI, pupils reactive to light Neck: Supple, nontender, midline Respiratory: Clear to auscultation bilaterally Cardiovascular: regular rate, no obvious murmurs Gastrointestinal: mildly-tender to palpation, bowel sounds heard. Neurological: Moves all extremities spontaneously, has some upper extremity difficulties Skin: No new skin lesions Assessment/Plan 1. Dizziness/ Vertigo-intermittent however chronic -Still with chronic dizziness ever since CABG 1 month ago - Neurology on board and appreciate recommendations. 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 neurology recs apprecated, states chronic abdominal pain, mild and improving however still persistent -epigastric discomfort, possible gastritis pain -lipase negative -ct negative -protonix/carafate -GI consulted -Due to recent finding of patient for uppercase similar symptoms, and a very benign physical exam I doubt this is an acute issue, in fact the patient's daug hter stated that she has been complaining of abdominal pain ever since her CABG approximately last month Questionable postsurgical changes on CABG -Cardiothoracic surgeon took a look at the patient's CT, CT corresponds with postsurgical changes and small pericardial effusion, no acute intervention necessary nausea -acute on chronic, has been going on for some time according to daughter, may be secondary to all the meds she started after her CABG last month -continue meds as needed, added scopolamine patch. -Possibly due to gastritis versus possibly provocation of symptoms 2. HTN - stable - cont Lisinopril and other meds and monitor BP as well as renal function 3. Hypothyroidism - TSH very elevated and will need to confirm home dose to ensure increase - will continue with 100mcg for now and will need to follow up as outpatient for repeat TSH 4. Recent CVA - seems only deficit is confusion but moving all extremities with intact strength, but some left shoulder issues - per PT, will benefit from SNF/ARU after discharge, patient is already a resident at a detention facility 5. Aortic stenosis s/p valve replacement - ECHO per cardiology - Cardiology consultation appreciated 6. NIA- improving - restarted Lisinopril but will need to monitor for further Cr improvement prior to restarting home diuretics if needed - will continue monitoring and avoid nephrotoxic agents 7. Disposition -If patient stable, will discharge back to detention facility, however patient's family request new detention facility and acute rehab unit evaluation. LIZZ BOJORQUEZ Sep 05, 2018 17:53
[2018-09-05 20:00] VITALS: BP 129/92; PULSE 71; RESP 18
[2018-09-05] MEDS: MIRTAZAPINE 15 MG TAB PO SCH (20:16)
[2018-09-05] MEDS: ATORVASTATIN 80 MG TAB PO SCH (20:16)
[2018-09-06] VITALS: BP 121/76; PULSE 69; RESP 19
[2018-09-06 04:18] VITALS: BP 147/66; PULSE 67; RESP 19
[2018-09-06] MEDS: PANTOPRAZOLE 40 MG INJ IV SCH ×2 (05:27→18:36)
[2018-09-06] MEDS: LEVOTHYROXINE 100 MCG TAB PO SCH (05:28)
[2018-09-06] MEDS: ONDANSETRON 4 MG INJ IV PRN (05:36)
[2018-09-06] MEDS: BUDESONIDE (NEB) 0.5MG/2ML AMP HHN SCH ×2 (07:30→21:46)
[2018-09-06 07:34] VITALS: BP 138/62; PULSE 61; RESP 18
[2018-09-06] MEDS: INSULIN ASPART [NOVOLOG] 3 ML PEN SC SCH ×4 (08:00→21:00)
[2018-09-06] MEDS: DOCUSATE SODIUM 100 MG CAP PO SCH ×2 (09:34→20:47)
[2018-09-06] MEDS: CHOLECALCIFEROL 1,000 UNIT TAB PO SCH (09:34)
[2018-09-06] MEDS: SUCRALFATE (100 MG/ML) 10ML CUP PO SCH ×4 (09:35→20:47)
[2018-09-06] MEDS: HYDROCORTISONE 25 MG SUPP PR SCH ×2 (09:35→20:47)
[2018-09-06] MEDS: SERTRALINE 50 MG TAB PO SCH (09:35)
[2018-09-06] MEDS: ASPIRIN 81 MG TAB PO SCH (09:35)
[2018-09-06] MEDS: LISINOPRIL 20 MG TAB PO SCH (09:36)
--- NOTE | 2018-09-06 10:58 | PN ---
Date/Time of Note Date/Time of Note DATE: 09/06/18 TIME: 10:44 Assessment/Plan VTE Prophylaxis Risk score (from Ns)>0 risk: 4 SCD applied (from Ns): Yes Pharmacological prophylaxis: NA/contraindicated Pharm contraindication: liver dx Lines/Catheters IV [facility]from [facility] [place] Urinary Cath still in place: No Assessment/Plan Hospital Course Summary Assessment and Plan: Assessment: Epigastric pain/nausea- resolved Imaging compatible with liver cirrhosis -Hepatitis B/C serology negative -LUKASZ (positive), ASMA (neg), AMA (neg) Dizziness- started post open heart surgery about 1-2 months ago Recent CVA Aortic stenosis s/p valve replacement NIA HTN Hypothyroidism Plan: Continue PPI/Carafate MiraLAX PO daily Currently no plan for EGD Sx of n/v abd pain - have improved- GI will sign off but will be available upon reconsult as needed Pt to f/u with GI for on going care/monitoring liver cirrhosis Patient seen in collaboration with Dr. Guerrero Subjective: Course reviewed with nursing staff Patient interviewed and examined All labs, imaging and other results reviewed No over night events, patient c/o constipation will start MiraLAX No c/o nausea or vomiting, PHYSICAL EXAMINATION: GENERAL: Alert & oriented x 3, in no acute distress SKIN: No lesions, no stigmata chronic liver disease, no evidence of bleeding diathesis NECK: Supple, no masses. CHEST: Inspection within normal limits. CARDIOVASCULAR: Heart: Regular rate and rhythm, no murmurs, gallops or rubs. No pulsatile abdominal mass RESPIRATORY: Lungs clear to auscultation and percussion, no wheezing, no rubs GASTROINTESTINAL AND LIVER: Abdomen: Soft, non tenderness, non-distended, no rebound tenderness, normoactive bowel sounds. Rectal: Deferred. EXTREMITIES: No cyanosis, clubbing or edema. Result Diagram: 09/05/18 0543 09/05/18 0543 Results 24hrs Laboratory Tests Test 09/05/18 11:50 09/05/18 17:07 09/05/18 20:15 09/06/18 05:13 Bedside Glucose 161 110 135 Ammonia 16 Test 09/06/18 08:05 Bedside Glucose 87 Exam/Review of Systems Exam Vitals Vital Signs Date Temp Pulse Resp B/P (MAP) Pulse Ox O2 O2 Flow FiO2 Time Delivery Rate 09/06/18 98.2 61 18 138/62 99 07:34 (87) 09/06/18 Nasal 04:18 Cannula 09/06/18 3.0 02:43 Intake and Output 09/05/18 09/05/18 09/06/18 1515:00 23:00 07:00 IntakeIntake Total 730 ml 220 ml 800 ml BalanceBalance 730 ml 220 ml 800 ml Results Results 24hrs Laboratory Tests Test 09/05/18 11:50 09/05/18 17:07 09/05/18 20:15 09/06/18 05:13 Bedside Glucose 161 110 135 Ammonia 16 Test 09/06/18 08:05 Bedside Glucose 87 Medications Medication Current Medications Budesonide (Pulmicort (Neb)) 0.5 mg BID HHN Last administered on 09/06/18 07:30; Admin Dose 0.5 MG; Start 08/31/18 at 21:30 Levalbuterol (Xopenex Neb) 0.63 mg Q4H PRN HHN WHEEZING AND SOB Last administered on 09/01/18at 03:33; Admin Dose 0.63 MG; Start 08/31/18 at 21:30 Lisinopril (Zestril) 20 mg DAILY PO Last administered on 09/06/18 09:36; Admin Dose 20 MG; Start 09/01/18 at 09:00 Magnesium Hydroxide (Milk Of Mag) 30 ml DAILY PRN PO NEEDED; Start 08/31/18 at 21:30 Sertraline HCl (Zoloft) 25 mg DAILY PO Last administered on 09/06/18 09:35; A dmin Dose 25 MG; Start 09/01/18 at 09:00 IV Flush (NS 3 ml) 3 ml PER PROTOCOL IV ; Start 08/31/18 at 21:30 Aspirin (Aspirin) 81 mg DAILY PO Last administered on 09/06/18 09:35; Admin Dose 81 MG; Start 09/01/18 at 09:00 Acetaminophen (Tylenol Tab) 650 mg Q6H PRN PO .PAIN 1-3 OR TEMP Last administer ed on 09/02/18 10:26; Admin Dose 650 MG; Start 08/31/18 at 21:30 Docusate Sodium (Colace) 100 mg Q12H PO Last administered on 8/1/19at 09:34; Admin Dose 100 MG; Start 08/31/18 at 21:30 Bisacodyl (Dulcolax) 5 mg DAILY PRN PO .CONSTIPATION Last administered on 09/05/18at 12:27; Admin Dose 5 MG; Start 08/31/18 at 21:30 Ondansetron HCl (Zofran Inj) 4 mg Q4H PRN IV NAUSEA AND/OR VOMITING Last admini stered on 09/06/18at 05:36; Admin Dose 4 MG; Start 08/31/18 at 23:30 Metoclopramide HCl (Reglan) 10 mg Q6 PRN IV NAUSEA AND/OR VOMITING Last administered on 09/03/18at 16:18; Admin Dose 10 MG; Start 08/31/18 at 23:30 Hydrocortisone (Anusol-Hc Supp) 25 mg BID AR Last administered on 09/06/18at 09:35; Admin Dose 25 MG; Start 09/01/18 at 09:00 Docusate Sodium (Colace) 100 mg DAILY PRN PO CONSTIPATION; Start 09/01/18 at 01:00 Cholecalciferol (Vitamin D) 1,000 unit DAILY PO Last administered on 09/06/18at 09:34; Admin Dose 1,000 UNIT; Start 09/01/18 at 09:00 Meclizine HCl (Antivert) 25 mg TID PRN PO NAUSEA AND/OR VOMITING; Start 09/01/18 at 01:00 Miscellaneous Information 1 ea NOTE XX ; Start 09/01/18 at 02:00 Glucose (Glutose) 15 gm Q15M PRN PO DECREASED GLUCOSE; Start 09/01/18 at 02:00 Glucose (Glutose) 22.5 gm Q15M PRN PO DECREASED GLUCOSE; Start 09/01/18 at 02:00 Dextrose (D50w Syringe) 25 ml Q15M PRN IV DECREASED GLUCOSE; Start 09/01/18 at 02:00 Dextrose (D50w Syringe) 50 ml Q15M PRN IV DECREASED GLUCOSE; Start 09/01/18 at 02:00 Glucagon (Glucagen) 1 mg Q15M PRN IM DECREASED GLUCOSE; Start 09/01/18 at 02:00 Glucose (Glutose) 15 gm Q15M PRN BUCCAL DECREASED GLUCOSE; Start 09/01/18 at 02:00 Levothyroxine Sodium (Synthroid) 100 mcg DAILY@06 PO Last administered on 09/06/18 05:28; Admin Dose 100 MCG; Start 09/01/18 at 06:00 Hydralazine HCl (Apresoline) 10 mg Q4H PRN IV ELEVATED BLOOD PRESSURE Last administered on 09/03/18 01:02; Admin Dose 10 MG; Start 09/01/18 at 09:00 Atorvastatin Calcium (Lipitor) 80 mg HS PO Last administered on 09/05/18 20:16; Admin Dose 80 MG; Start 09/01/18 at 21:00 Insulin Aspart (Novolog Insulin Pen) NOVOLOG *MILD* ALGORI... AC MEALS AND BE DTIME SC Last administered on 09/05/18 11:52; Admin Dose 1 UNIT; Start 09/02/18 at 12:00 Sucralfate (Carafate Susp) 1 gm QID PO Last administered on 09/06/18 09:35; Admin Dose 1 GM; Start 09/03/18 at 13:00 Acetaminophen/ Hydrocodone Bitart ([place] (5/325)) 1 tab Q4H PRN PO MODERATE PAIN LEVEL 4-6 Last administered on 09/04/18 14:36; Admin Dose 1 TAB; Start 09/03/18 at 10:00 Scopolamine (Transderm-Scop) 1 patch Q72H TRANSDERM Last administered on 09/03/18 12:07; Admin Dose 1 PATCH; Start 09/03/18 at 11:30 Pantoprazole (Protonix Iv) 40 mg BID@0600,1800 IV Last administered on 09/06/18 05:27; Admin Dose 40 MG; Start 09/04/18 at 18:00 Polyethylene Glycol (Miralax) 17 gm DAILY PRN PO CONSTIPATION; Start 09/04/18 at 12:00 Mirtazapine (Remeron) 15 mg HS PO Last administered on 09/05/18 20:16; Admin Dose 15 MG; Start 09/05/18 at 21:00 BERNICE DAI Sep 06, 2018 10:58
--- NOTE | 2018-09-06 11:05 | CONS ---
Assessment/Plan Assessment/Plan Assessment/Plan (Recall) 73 F c/ multiple comorbidities, including kin-operative strokes 6 weeks ago...who presents for evaluation of nonspecific dizziness. The clinical picture is atypical for an acute cerebrovascular process.. Noted to be in NIA on arrival, which is a potential contributor.. MRI brain confirms multifocal chronic infarcts.. Punctate diffusion bright lesions anteriorly are without adc correlate, inconsistent w/ acute ischemia. 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 P: Agree w/ asa/lipitor daily for secondary stroke prevention Continued medical management and supportive care per primary PT/OT/ST as necessary Other management and supportive care per primary Will follow clinically Consultation Date/Type/Reason Admit Date/Time Aug 31, 2018 at 19:25 Type of Consult Neurology Reason for Consultation dizziness Requesting Provider: ALEX CADE Date/Time of Note DATE: 09/06/18 TIME: 11:04 24 HR Interval Summary Free Text/Dictation c/o dizziness.. Exam/Review of Systems Exam Vitals Vital Signs Date Temp Pulse Resp B/P (MAP) Pulse Ox O2 O2 Flow FiO2 Time Delivery Rate 09/06/18 98.2 61 18 138/62 99 07:34 (87) 09/06/18 Nasal 04:18 Cannula 09/06/18 3.0 02:43 Intake and Output 09/05/18 09/05/18 09/06/18 1515:00 23:00 07:00 IntakeIntake Total 730 ml 220 ml 800 ml BalanceBalance 730 ml 220 ml 800 ml Results Result Diagram: 09/05/18 0543 09/05/18 0543 Results 24hrs Laboratory Tests Test 09/05/18 11:50 09/05/18 17:07 09/05/18 20:15 09/06/18 05:13 Bedside Glucose 161 110 135 Ammonia 16 Test 09/06/18 08:05 Bedside Glucose 87 Medications Medication Current Medications Budesonide (Pulmicort (Neb)) 0.5 mg BID HHN Last administered on 09/06/18at 07:30; Admin Dose 0.5 MG; Start 08/31/18 at 21:30 Levalbuterol (Xopenex Neb) 0.63 mg Q4H PRN HHN WHEEZING AND SOB Last administered on 09/01/18at 03:33; Admin Dose 0.63 MG; Start 08/31/18 at 21:30 Lisinopril (Zestril) 20 mg DAILY PO Last administered on 09/06/18 09:36; Admin Dose 20 MG; Start 09/01/18 at 09:00 Magnesium Hydroxide (Milk Of Mag) 30 ml DAILY PRN PO NEEDED; Start 08/31/18 at 21:30 Sertraline HCl (Zoloft) 25 mg DAILY PO Last administered on 09/06/18 09:35; A dmin Dose 25 MG; Start 09/01/18 at 09:00 IV Flush (NS 3 ml) 3 ml PER PROTOCOL IV ; Start 08/31/18 at 21:30 Aspirin (Aspirin) 81 mg DAILY PO Last administered on 09/06/18 09:35; Admin Dose 81 MG; Start 09/01/18 at 09:00 Acetaminophen (Tylenol Tab) 650 mg Q6H PRN PO .PAIN 1-3 OR TEMP Last administer ed on 09/02/18 10:26; Admin Dose 650 MG; Start 08/31/18 at 21:30 Docusate Sodium (Colace) 100 mg Q12H PO Last administered on 09/06/18 09:34; Admin Dose 100 MG; Start 08/31/18 at 21:30 Bisacodyl (Dulcolax) 5 mg DAILY PRN PO .CONSTIPATION Last administered on 09/05/18 12:27; Admin Dose 5 MG; Start 08/31/18 at 21:30 Ondansetron HCl (Zofran Inj) 4 mg Q4H PRN IV NAUSEA AND/OR VOMITING Last admini stered on 09/06/18 05:36; Admin Dose 4 MG; Start 08/31/18 at 23:30 Metoclopramide HCl (Reglan) 10 mg Q6 PRN IV NAUSEA AND/OR VOMITING Last administered on 09/03/18 16:18; Admin Dose 10 MG; Start 08/31/18 at 23:30 Hydrocortisone (Anusol-Hc Supp) 25 mg BID [place] Last administered on 09/06/18 09:35; Admin Dose 25 MG; Start 09/01/18 at 09:00 Docusate Sodium (Colace) 100 mg DAILY PRN PO CONSTIPATION; Start 09/01/18 at 01:00 Cholecalciferol (Vitamin D) 1,000 unit DAILY PO Last administered on 09/06/18at 09:34; Admin Dose 1,000 UNIT; Start 09/01/18 at 09:00 Meclizine HCl (Antivert) 25 mg TID PRN PO NAUSEA AND/OR VOMITING; Start 09/01/18 at 01:00 Miscellaneous Information 1 ea NOTE XX ; Start 09/01/18 at 02:00 Glucose (Glutose) 15 gm Q15M PRN PO DECREASED GLUCOSE; Start 09/01/18 at 02:00 Glucose (Glutose) 22.5 gm Q15M PRN PO DECREASED GLUCOSE; Start 09/01/18 at 02:00 Dextrose (D50w Syringe) 25 ml Q15M PRN IV DECREASED GLUCOSE; Start 09/01/18 at 02:00 Dextrose (D50w Syringe) 50 ml Q15M PRN IV DECREASED GLUCOSE; Start 09/01/18 at 02:00 Glucagon (Glucagen) 1 mg Q15M PRN IM DECREASED GLUCOSE; Start 09/01/18 at 02:00 Glucose (Glutose) 15 gm Q15M PRN BUCCAL DECREASED GLUCOSE; Start 09/01/18 at 02:00 Levothyroxine Sodium (Synthroid) 100 mcg DAILY@06 PO Last administered on 09/06/18at 05:28; Admin Dose 100 MCG; Start 09/01/18 at 06:00 Hydralazine HCl (Apresoline) 10 mg Q4H PRN IV ELEVATED BLOOD PRESSURE Last administered on 09/03/18at 01:02; Admin Dose 10 MG; Start 09/01/18 at 09:00 Atorvastatin Calcium (Lipitor) 80 mg HS PO Last administered on 09/05/18at 20:16; Admin Dose 80 MG; Start 09/01/18 at 21:00 Insulin Aspart (Novolog Insulin Pen) NOVOLOG *MILD* ALGORI... AC MEALS AND BE DTIME SC Last administered on 09/05/18at 11:52; Admin Dose 1 UNIT; Start 09/02/18 at 12:00 Sucralfate (Carafate Susp) 1 gm QID PO Last administered on 09/06/18at 09:35; Admin Dose 1 GM; Start 09/03/18 at 13:00 Acetaminophen/ Hydrocodone Bitart ([place] (5/325)) 1 tab Q4H PRN PO MODERATE PAIN LEVEL 4-6 Last administered on 09/04/18at 14:36; Admin Dose 1 TAB; Start 09/03/18 at 10:00 Scopolamine (Transderm-Scop) 1 patch Q72H TRANSDERM Last administered on 09/03/18at 12:07; Admin Dose 1 PATCH; Start 09/03/18 at 11:30 Pantoprazole (Protonix Iv) 40 mg BID@0600,1800 IV Last administered on 09/06/18at 05:27; Admin Dose 40 MG; Start 09/04/18 at 18:00 Polyethylene Glycol (Miralax) 17 gm DAILY PRN PO CONSTIPATION; Start 09/04/18 at 12:00 Mirtazapine (Remeron) 15 mg HS PO Last administered on 09/05/18at 20:16; Admin Dose 15 MG; Start 09/05/18 at 21:00 JAE BOX Sep 06, 2018 11:05
[2018-09-06 11:23] VITALS: BP 164/70; PULSE 61; RESP 20
[2018-09-06] MEDS: SCOPOLAMINE 1.5 MG PATCH TRANSDERM SCH (11:39)
--- NOTE | 2018-09-06 11:43 | CONS ---
Assessment/Plan Assessment/Plan Hospital Course (Demo Recall) IMPRESSION: 1. Shortness of breath, assess for congestive heart failure.-Echo this admit 09/02 EF 60-65 2. History of aortic valve replacement with a bovine bioprosthetic valve.- proper function by echo 3. Cerebrovascular accident, acute, at time of valve replacement with now ongoing dizziness and weakness, as well as loss of vision per daughter. 4. Hypertension, borderline. 5. Hypothyroidism. 6. Diabetes mellitus. 7. Dyslipidemia. 8. Renal failure-stable 9. anterior mediastinal fluid collection versus loculated pericardial effusion by CT- would likely have been related to recent surgery and no significant pericardial effusion seen by echo so would favor mediastinal fluid collection at this time Recc: -Tele -Contnue asa -Continue acei with slight increase -continue high dose statin -ongoing neuro eval -Follow volume status closely and creatnine closely with lasix now held Consultation Date/Type/Reason Admit Date/Time Aug 31, 2018 at 19:25 Initial Consult Date 09/01/18 Type of Consult Cardiology Reason for Consultation AVR/Bio) Requesting Provider: ALEX CADE Date/Time of Note DATE: 09/06/18 TIME: 11:42 Exam/Review of Systems Vital Signs Vitals Vital Signs Date Temp Pulse Resp B/P (MAP) Pulse Ox O2 O2 Flow FiO2 Time Delivery Rate 09/06/18 98.2 61 20 164/70 97 11:23 (101) 09/06/18 Nasal 04:18 Cannula 09/06/18 3.0 02:43 Intake and Output 09/05/18 09/05/18 09/06/18 1515:00 23:00 07:00 IntakeIntake Total 730 ml 220 ml 800 ml BalanceBalance 730 ml 220 ml 800 ml Exam Exam Review of Systems: CONSTITUTIONAL: No fevers, chills. PULMONARY: No sob CARDIOVASCULAR: No chest pain/palpitations GASTROINTESTINAL: No nausea/vomiting. GENITOURINARY: No hematuria/dysuria. MUSCULOSKELETAL: No myagias/arthalgias. PSYCHIATRIC: The patient denies depression. NEUROLOGIC: No weakness Constitutional: alert Psych: no complaints Head: normocephalic ENMT: mucosa pink and moist Neck: supple, jvd (9 cm water) Respiratory: diminished breath sounds (at bases/B) Cardiovascular: regular rate and rhythm Gastrointestinal: soft Musculoskeletal: muscle tone (normal) Extremities: edema (none) Neurological: other (no focal deficits) Labs Result Diagram: 09/05/1843 09/05/18 0543 Results 24hrs Laboratory Tests Test 09/05/18 11:50 09/05/18 17:07 09/05/18 20:15 09/06/18 05:13 Bedside Glucose 161 110 135 Ammonia 16 Test 09/06/18 08:05 Bedside Glucose 87 Medications Medications Current Medications Budesonide (Pulmicort (Neb)) 0.5 mg BID HHN Last administered on 09/06/18 07:30; Admin Dose 0.5 MG; Start 08/31/18 at 21:30 Levalbuterol (Xopenex Neb) 0.63 mg Q4H PRN HHN WHEEZING AND SOB Last administered on 09/01/18 03:33; Admin Dose 0.63 MG; Start 08/31/18 at 21:30 Lisinopril (Zestril) 20 mg DAILY PO Last administered on 09/06/18 09:36; Admin Dose 20 MG; Start 09/01/18 at 09:00 Magnesium Hydroxide (Milk Of Mag) 30 ml DAILY PRN PO NEEDED; Start 08/31/18 at 21:30 Sertraline HCl (Zoloft) 25 mg DAILY PO Last administered on 09/06/18 09:35; Admin Dose 25 MG; Start 09/01/18 at 09:00 IV Flush (NS 3 ml) 3 ml PER PROTOCOL IV ; Start 08/31/18 at 21:30 Aspirin (Aspirin) 81 mg DAILY PO Last administered on 09/06/18 09:35; Admin Dose 81 MG; Start 09/01/18 at 09:00 Acetaminophen (Tylenol Tab) 650 mg Q6H PRN PO .PAIN 1-3 OR TEMP Last administered on 09/02/18 10:26; Admin Dose 650 MG; Start 08/31/18 at 21:30 Docusate Sodium (Colace) 100 mg Q12H PO Last administered on 09/06/18 09:34; Admin Dose 100 MG; Start 08/31/18 at 21:30 Bisacodyl (Dulcolax) 5 mg DAILY PRN PO .CONSTIPATION Last administered on 09/05/18 12:27; Admin Dose 5 MG; Start 08/31/18 at 21:30 Ondansetron HCl (Zofran Inj) 4 mg Q4H PRN IV NAUSEA AND/OR VOMITING Last administered on 09/06/18at 05:36; Admin Dose 4 MG; Start 08/31/18 at 23:30 Metoclopramide HCl (Reglan) 10 mg Q6 PRN IV NAUSEA AND/OR VOMITING Last administered on 09/03/18at 16:18; Admin Dose 10 MG; Start 08/31/18 at 23:30 Hydrocortisone (Anusol-Hc Supp) 25 mg BID [place] Last administered on 09/06/18at 09:35; Admin Dose 25 MG; Start 09/01/18 at 09:00 Docusate Sodium (Colace) 100 mg DAILY PRN PO CONSTIPATION; Start 09/01/18 at 01:00 Cholecalciferol (Vitamin D) 1,000 unit DAILY PO Last administered on 09/06/18at 09:34; Admin Dose 1,000 UNIT; Start 09/01/18 at 09:00 Meclizine HCl (Antivert) 25 mg TID PRN PO NAUSEA AND/OR VOMITING; Start 09/01/18 at 01:00 Miscellaneous Information 1 ea NOTE XX ; Start 09/01/18 at 02:00 Glucose (Glutose) 15 gm Q15M PRN PO DECREASED GLUCOSE; Start 09/01/18 at 02:00 Glucose (Glutose) 22.5 gm Q15M PRN PO DECREASED GLUCOSE; Start 09/01/18 at 02:00 Dextrose (D50w Syringe) 25 ml Q15M PRN IV DECREASED GLUCOSE; Start 09/01/18 at 02:00 Dextrose (D50w Syringe) 50 ml Q15M PRN IV DECREASED GLUCOSE; Start 09/01/18 at 02:00 Glucagon (Glucagen) 1 mg Q15M PRN IM DECREASED GLUCOSE; Start 09/01/18 at 02:00 Glucose (Glutose) 15 gm Q15M PRN BUCCAL DECREASED GLUCOSE; Start 09/01/18 at 02:00 Levothyroxine Sodium (Synthroid) 100 mcg DAILY@06 PO Last administered on 09/06/18at 05:28; Admin Dose 100 MCG; Start 09/01/18 at 06:00 Hydralazine HCl (Apresoline) 10 mg Q4H PRN IV ELEVATED BLOOD PRESSURE Last administered on 09/03/18 01:02; Admin Dose 10 MG; Start 09/01/18 at 09:00 Atorvastatin Calcium (Lipitor) 80 mg HS PO Last administered on 09/05/18 20:16; Admin Dose 80 MG; Start 09/01/18 at 21:00 Insulin Aspart (Novolog Insulin Pen) NOVOLOG *MILD* ALGORI... AC MEALS AND BEDTIME SC Last administered on 09/05/18 11:52; Admin Dose 1 UNIT; Start 09/02/18 at 12:00 Sucralfate (Carafate Susp) 1 gm QID PO Last administered on 09/06/18 09:35; Admin Dose 1 GM; Start 09/03/18 at 13:00 Acetaminophen/ Hydrocodone Bitart ([place] (5/325)) 1 tab Q4H PRN PO MODERATE PAIN LEVEL 4-6 Last administered on 09/04/18 14:36; Admin Dose 1 TAB; Start 09/03/18 at 10:00 Scopolamine (Transderm-Scop) 1 patch Q72H TRANSDERM Last administered on 09/06/18 11:39; Admin Dose 1 PATCH; Start 09/03/18 at 11:30 Pantoprazole (Protonix Iv) 40 mg BID@0600,1800 IV Last administered on 09/06/18 05:27; Admin Dose 40 MG; Start 09/04/18 at 18:00 Polyethylene Glycol (Miralax) 17 gm DAILY PRN PO CONSTIPATION; Start 09/04/18 at 12:00 Mirtazapine (Remeron) 15 mg HS PO Last administered on 09/05/18 20:16; Admin Dose 15 MG; Start 09/05/18 at 21:00 TIANA PENA Sep 06, 2018 11:43
--- NOTE | 2018-09-06 14:23 | PN ---
Date/Time of Note Date/Time of Note DATE: 09/06/18 TIME: 14:23 Objective Vitals Vital Signs Date Temp Pulse Resp B/P (MAP) Pulse Ox O2 O2 Flow FiO2 Time Delivery Rate 09/06/18 98.2 61 20 164/70 97 11:23 (101) 09/06/18 Nasal 2.0 07:30 Cannula Intake and Output 09/05/18 09/05/18 09/06/18 1515:00 23:00 07:00 IntakeIntake Total 730 ml 220 ml 800 ml BalanceBalance 730 ml 220 ml 800 ml Results Result Diagram: 09/05/18 0543 09/05/1843 Medications Medications Current Medications Budesonide (Pulmicort (Neb)) 0.5 mg BID HHN Last administered on 09/06/18 07:30; Admin Dose 0.5 MG; Start 08/31/18 at 21:30 Levalbuterol (Xopenex Neb) 0.63 mg Q4H PRN HHN WHEEZING AND SOB Last administered on 09/01/18 03:33; Admin Dose 0.63 MG; Start 08/31/18 at 21:30 Lisinopril (Zestril) 20 mg DAILY PO Last administered on 09/06/18 09:36; Admin Dose 20 MG; Start 09/01/18 at 09:00 Magnesium Hydroxide (Milk Of Mag) 30 ml DAILY PRN PO NEEDED; Start 08/31/18 at 21:30 Sertraline HCl (Zoloft) 25 mg DAILY PO Last administered on 09/06/18 09:35; Admin Dose 25 MG; Start 09/01/18 at 09:00 IV Flush (NS 3 ml) 3 ml PER PROTOCOL IV ; Start 08/31/18 at 21:30 Aspirin (Aspirin) 81 mg DAILY PO Last administered on 09/06/18 09:35; Admin Dose 81 MG; Start 09/01/18 at 09:00 Acetaminophen (Tylenol Tab) 650 mg Q6H PRN PO .PAIN 1-3 OR TEMP Last administered on 09/02/18 10:26; Admin Dose 650 MG; Start 08/31/18 at 21:30 Docusate Sodium (Colace) 100 mg Q12H PO Last administered on 09/06/18 09:34; Admin Dose 100 MG; Start 08/31/18 at 21:30 Bisacodyl (Dulcolax) 5 mg DAILY PRN PO .CONSTIPATION Last administered on at 12:27; Admin Dose 5 MG; Start 08/31/18 at 21:30 Ondansetron HCl (Zofran Inj) 4 mg Q4H PRN IV NAUSEA AND/OR VOMITING Last administered on 09/06/18at 05:36; Admin Dose 4 MG; Start 08/31/18 at 23:30 Metoclopramide HCl (Reglan) 10 mg Q6 PRN IV NAUSEA AND/OR VOMITING Last administered on 09/03/18at 16:18; Admin Dose 10 MG; Start 08/31/18 at 23:30 Hydrocortisone (Anusol-Hc Supp) 25 mg BID [place] Last administered on 09/06/18at 09:35; Admin Dose 25 MG; Start 09/01/18 at 09:00 Docusate Sodium (Colace) 100 mg DAILY PRN PO CONSTIPATION; Start 09/01/18 at 01:00 Cholecalciferol (Vitamin D) 1,000 unit DAILY PO Last administered on 09/06/18at 09:34; Admin Dose 1,000 UNIT; Start 09/01/18 at 09:00 Meclizine HCl (Antivert) 25 mg TID PRN PO NAUSEA AND/OR VOMITING; Start 09/01/18 at 01:00 Miscellaneous Information 1 ea NOTE XX ; Start 09/01/18 at 02:00 Glucose (Glutose) 15 gm Q15M PRN PO DECREASED GLUCOSE; Start 09/01/18 at 02:00 Glucose (Glutose) 22.5 gm Q15M PRN PO DECREASED GLUCOSE; Start 09/01/18 at 02:00 Dextrose (D50w Syringe) 25 ml Q15M PRN IV DECREASED GLUCOSE; Start 09/01/18 at 02:00 Dextrose (D50w Syringe) 50 ml Q15M PRN IV DECREASED GLUCOSE; Start 09/01/18 at 02:00 Glucagon (Glucagen) 1 mg Q15M PRN IM DECREASED GLUCOSE; Start 09/01/18 at 02:00 Glucose (Glutose) 15 gm Q15M PRN BUCCAL DECREASED GLUCOSE; Start 09/01/18 at 02:00 Levothyroxine Sodium (Synthroid) 100 mcg DAILY@06 PO Last administered on 09/06/18 05:28; Admin Dose 100 MCG; Start 09/01/18 at 06:00 Hydralazine HCl (Apresoline) 10 mg Q4H PRN IV ELEVATED BLOOD PRESSURE Last administered on 09/03/18 01:02; Admin Dose 10 MG; Start 09/01/18 at 09:00 Atorvastatin Calcium (Lipitor) 80 mg HS PO Last administered on 09/05/18 20:16; Admin Dose 80 MG; Start 09/01/18 at 21:00 Insulin Aspart (Novolog Insulin Pen) NOVOLOG *MILD* ALGORI... AC MEALS AND BEDTIME SC Last administered on 09/05/18 11:52; Admin Dose 1 UNIT; Start 09/02/18 at 12:00 Sucralfate (Carafate Susp) 1 gm QID PO Last administered on 09/06/18 13:35; Admin Dose 1 GM; Start 09/03/18 at 13:00 Acetaminophen/ Hydrocodone Bitart ([place] (5/325)) 1 tab Q4H PRN PO MODERATE PAIN LEVEL 4-6 Last administered on 09/04/18 14:36; Admin Dose 1 TAB; Start 09/03/18 at 10:00 Scopolamine (Transderm-Scop) 1 patch Q72H TRANSDERM Last administered on 09/06/18 11:39; Admin Dose 1 PATCH; Start 09/03/18 at 11:30 Pantoprazole (Protonix Iv) 40 mg BID@0600,1800 IV Last administered on 09/06/18 05:27; Admin Dose 40 MG; Start 09/04/18 at 18:00 Polyethylene Glycol (Miralax) 17 gm DAILY PRN PO CONSTIPATION; Start 09/04/18 at 12:00 Mirtazapine (Remeron) 15 mg HS PO Last administered on 09/05/18 20:16; Admin Dose 15 MG; Start 09/05/18 at 21:00 VTE Prophylaxis Risk score (from Nsg)>0 risk: 4 SCD applied (from Nsg): Yes Lines/Catheters IV Catheter Type: Jerez in Place: No Assessment/Plan Hospital Course Subjective Patient appears very comfortable, still complains of the same chronic complaints of mild abdominal pain, headache, dizziness which have been chronic for the past couple months Objective Physical exam General: Patient is laying in bed and answers questions appropriately Mentation: Patient is alert and oriented Head: Normocephalic atraumatic Eyes: EOMI, pupils reactive to light Neck: Supple, nontender, midline Respiratory: Clear to auscultation bilaterally Cardiovascular: regular rate, no obvious murmurs Gastrointestinal: mildly-tender to palpation, bowel sounds heard. Neurological: Moves all extremities spontaneously, has some upper extremity difficulties Skin: No new skin lesions Assessment/Plan 1. Dizziness/ Vertigo-intermittent however chronic -Still with chronic dizziness ever since CABG 1 month ago - Neurology on board and appreciate recommendations. 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 neurology recs apprecated, states chronic abdominal pain, mild and improving however still persistent -epigastric discomfort, possible gastritis pain -lipase negative -ct negative -protonix/carafate -GI consulted -Due to recent finding of patient for uppercase similar symptoms, and a very benign physical exam I doubt this is an acute issue, in fact the patient's daughter stated that she has been complaining of abdominal pain ever since her CABG approximately last month Questionable postsurgical changes on CABG -Cardiothoracic surgeon took a look at the patient's CT, CT corresponds with postsurgical changes and small pericardial effusion, no acute intervention necessary nausea -acute on chronic, has been going on for some time according to daughter, may be secondary to all the meds she started after her CABG last month -continue meds as needed, added scopolamine patch. -Possibly due to gastritis versus possibly provocation of symptoms 2. HTN - stable - cont Lisinopril and other meds and monitor BP as well as renal function 3. Hypothyroidism - TSH very elevated and will need to confirm home dose to ensure increase - will continue with 100mcg for now and will need to follow up as outpatient for repeat TSH 4. Recent CVA - seems only deficit is confusion but moving all extremities with intact strength, but some left shoulder issues - per PT, will benefit from SNF/ARU after discharge, patient is already a resident at a [facility] facility 5. Aortic stenosis s/p valve replacement - ECHO per cardiology - Cardiology consultation appreciated 6. NIA- improving - restarted Lisinopril but will need to monitor for further Cr improvement prior to restarting home diuretics if needed - will continue monitoring and avoid nephrotoxic agents 7. Disposition -If patient stable, will discharge back to [facility] facility, however patient's family request new [facility] facility and acute rehab unit evaluation. LIZZ BOJORQUEZ Sep 06, 2018 14:23
[2018-09-06 15:25] VITALS: BP 148/65; PULSE 62; RESP 18
[2018-09-06] MEDS: LORAZEPAM 0.5 MG TAB PO PRN (16:24)
[2018-09-06 20:00] VITALS: BP 157/70; PULSE 67; RESP 20
[2018-09-06] MEDS: MIRTAZAPINE 15 MG TAB PO SCH (20:47)
[2018-09-06] MEDS: ATORVASTATIN 80 MG TAB PO SCH (20:47)
[2018-09-07 00:31] VITALS: BP_SYST 179; BP_SYST 191; BP_DIAS 79; BP_DIAS 82; PULSE 72; PULSE 79; RESP 20
[2018-09-07 03:38] VITALS: BP 198/93; PULSE 84; RESP 21
[2018-09-07] MEDS: PANTOPRAZOLE 40 MG INJ IV SCH ×2 (05:15→17:42)
[2018-09-07] MEDS: LEVOTHYROXINE 100 MCG TAB PO SCH (05:16)
[2018-09-07] MEDS: hydrALAzine 20 MG INJ IV PRN (05:16)
[2018-09-07 07:25] VITALS: BP 149/75; PULSE 87; RESP 18
[2018-09-07] MEDS: INSULIN ASPART [NOVOLOG] 3 ML PEN SC SCH ×4 (08:00→20:31)
[2018-09-07] MEDS: BUDESONIDE (NEB) 0.5MG/2ML AMP HHN SCH ×2 (09:00→21:02)
[2018-09-07] MEDS: SUCRALFATE (100 MG/ML) 10ML CUP PO SCH ×4 (09:15→20:32)
[2018-09-07] MEDS: CHOLECALCIFEROL 1,000 UNIT TAB PO SCH (09:15)
[2018-09-07] MEDS: DOCUSATE SODIUM 100 MG CAP PO SCH ×2 (09:16→20:38)
[2018-09-07] MEDS: SERTRALINE 50 MG TAB PO SCH (09:16)
[2018-09-07] MEDS: HYDROCORTISONE 25 MG SUPP PR SCH ×2 (09:16→20:36)
[2018-09-07] MEDS: LISINOPRIL 20 MG TAB PO SCH (09:17)
[2018-09-07] MEDS: ASPIRIN 81 MG TAB PO SCH (09:17)
[2018-09-07] MEDS ORDERED: POTASSIUM CHLORIDE 20 MEQ POWDER FOR ORAL SOLN PO ONE (10:00)
[2018-09-07] MEDS: ONDANSETRON 4 MG INJ IV PRN (10:20)
[2018-09-07 11:06] VITALS: BP 133/64; PULSE 74; RESP 18
--- NOTE | 2018-09-07 12:48 | CONS ---
Assessment/Plan Assessment/Plan Hospital Course (Demo Recall) IMPRESSION: 1. Shortness of breath, assess for congestive heart failure.-Echo this admit 09/02 EF 60-65 2. History of aortic valve replacement with a bovine bioprosthetic valve.- proper function by echo 3. Cerebrovascular accident, acute, at time of valve replacement with now ongoing dizziness and weakness, as well as loss of vision per daughter. 4. Hypertension, borderline. 5. Hypothyroidism. 6. Diabetes mellitus. 7. Dyslipidemia. 8. Renal failure-stable 9. anterior mediastinal fluid collection versus loculated pericardial effusion by CT- would likely have been related to recent surgery and no significant pericardial effusion seen by echo so would favor mediastinal fluid collection at this time Recc: -Tele -Contnue asa -Continue acei with slight increase -continue high dose statin -ongoing neuro eval -Follow volume status closely and creatnine closely with lasix still held Consultation Date/Type/Reason Admit Date/Time Aug 31, 2018 at 19:25 Initial Consult Date 09/01/18 Type of Consult Cardiology Reason for Consultation AVR Requesting Provider: ALEX CADE Date/Time of Note DATE: 09/07/18 TIME: 12:45 Exam/Review of Systems Vital Signs Vitals Vital Signs Date Temp Pulse Resp B/P (MAP) Pulse Ox O2 O2 Flow FiO2 Time Delivery Rate 09/07/18 98.7 74 18 133/64 96 11:06 (87) 09/07/18 Nasal 03:38 Cannula 09/07/18 2.0 27 01:02 Intake and Output 09/06/18 09/06/18 09/07/18 1515:00 23:00 07:00 IntakeIntake Total 650 ml 940 ml OutputOutput Total 0 ml BalanceBalance 0 ml 650 ml 940 ml Exam Exam Review of Systems: CONSTITUTIONAL: No fevers, chills. PULMONARY: No sob CARDIOVASCULAR: No chest pain/palpitations GASTROINTESTINAL: No nausea/vomiting. GENITOURINARY: No hematuria/dysuria. MUSCULOSKELETAL: No myagias/arthalgias. PSYCHIATRIC: The patient denies depression. NEUROLOGIC: No weakness Constitutional: alert Psych: no complaints Head: normocephalic ENMT: mucosa pink and moist Neck: supple, jvd (9 cm water) Respiratory: diminished breath sounds (at bases/B) Cardiovascular: regular rate and rhythm Gastrointestinal: soft, non-tender Musculoskeletal: muscle tone (normal) Extremities: edema (none) Neurological: lethargic (somewhat) Labs Result Diagram: 09/07/1852709/07/18527 Results 24hrs Laboratory Tests Test 09/06/18 17:41 09/06/18 20:49 09/07/18 05:28 09/07/18 07:47 Bedside Glucose 110 141 102 White Blood Count 9.0 Red Blood Count 3.68 L Hemoglobin 11.6 L Hematocrit 36.9 L Mean Corpuscular Volume 100.3 Mean Corpuscular 31.5 Hemoglobin Mean Corpuscular 31.4 L Hemoglobin Concent Red Cell Distribution 13.4 Width Platelet Count 196 Mean Platelet Volume 9.9 Immature Granulocytes % 0.400 Neutrophils % 62.3 Lymphocytes % 21.3 Monocytes % 8.9 Eosinophils % 6.3 Basophils % 0.8 Nucleated Red Blood 0.0 Cells % Immature Granulocytes # 0.040 H Neutrophils # 5.6 Lymphocytes # 1.9 Monocytes # 0.8 Eosinophils # 0.6 H Basophils # 0.1 Nucleated Red Blood 0.0 Cells # Sodium Level 143 Potassium Level 3.3 L Chloride Level 107 Carbon Dioxide Level 29 Anion Gap 7 Blood Urea Nitrogen 20 Creatinine 0.96 Est Glomerular Filtrat Rate mL/min Glucose Level 102 Calcium Level 9.4 Phosphorus Level 2.6 Magnesium Level 2.0 Test 09/07/18 11:44 Bedside Glucose 128 Medications Medications Current Medications Budesonide (Pulmicort (Neb)) 0.5 mg BID HHN Last administered on 09/06/18at 21:46; Admin Dose 0.5 MG; Start 08/31/18 at 21:30 Levalbuterol (Xopenex Neb) 0.63 mg Q4H PRN HHN WHEEZING AND SOB Last administered on 09/01/18at 03:33; Admin Dose 0.63 MG; Start 08/31/18 at 21:30 Lisinopril (Zestril) 20 mg DAILY PO Last administered on 09/07/18at 09:17; Admin Dose 20 MG; Start 09/01/18 at 09:00 Magnesium Hydroxide (Milk Of Mag) 30 ml DAILY PRN PO NEEDED; Start 08/31/18 at 21:30 Sertraline HCl (Zoloft) 25 mg DAILY PO Last administered on 8/2/19at 09:16; Admin Dose 25 MG; Start 09/01/18 at 09:00 IV Flush (NS 3 ml) 3 ml PER PROTOCOL IV ; Start 08/31/18 at 21:30 Aspirin (Aspirin) 81 mg DAILY PO Last administered on 09/07/18 09:17; Admin Dose 81 MG; Start 09/01/18 at 09:00 Acetaminophen (Tylenol Tab) 650 mg Q6H PRN PO .PAIN 1-3 OR TEMP Last ad ministered on 09/02/18 10:26; Admin Dose 650 MG; Start 08/31/18 at 21:30 Docusate Sodium (Colace) 100 mg Q12H PO Last administered on 09/07/18 09:16; Admin Dose 100 MG; Start 08/31/18 at 21:30 Bisacodyl (Dulcolax) 5 mg DAILY PRN PO .CONSTIPATION Last administered on 09/05/18 12:27; Admin Dose 5 MG; Start 08/31/18 at 21:30 Ondansetron HCl (Zofran Inj) 4 mg Q4H PRN IV NAUSEA AND/OR VOMITING Last administered on 09/07/18 10:20; Admin Dose 4 MG; Start 08/31/18 at 23:30 Metoclopramide HCl (Reglan) 10 mg Q6 PRN IV NAUSEA AND/OR VOMITING Last administered on 09/03/18 16:18; Admin Dose 10 MG; Start 08/31/18 at 23:30 Hydrocortisone (Anusol-Hc Supp) 25 mg BID [place] Last administered on 09/07/18 0 9:16; Admin Dose 25 MG; Start 09/01/18 at 09:00 Docusate Sodium (Colace) 100 mg DAILY PRN PO CONSTIPATION; Start 09/01/18 at 01:00 Cholecalciferol (Vitamin D) 1,000 unit DAILY PO Last administered on 09/07/18 09:15; Admin Dose 1,000 UNIT; Start 09/01/18 at 09:00 Meclizine HCl (Antivert) 25 mg TID PRN PO NAUSEA AND/OR VOMITING; Start 09/01/18 at 01:00 Miscellaneous Information 1 ea NOTE XX ; Start 09/01/18 at 02:00 Glucose (Glutose) 15 gm Q15M PRN PO DECREASED GLUCOSE; Start 09/01/18 at 02:00 Glucose (Glutose) 22.5 gm Q15M PRN PO DECREASED GLUCOSE; Start 09/01/18 at 02:00 Dextrose (D50w Syringe) 25 ml Q15M PRN IV DECREASED GLUCOSE; Start 09/01/18 at 02:00 Dextrose (D50w Syringe) 50 ml Q15M PRN IV DECREASED GLUCOSE; Start 09/01/18 at 02:00 Glucagon (Glucagen) 1 mg Q15M PRN IM DECREASED GLUCOSE; Start 09/01/18 at 02:00 Glucose (Glutose) 15 gm Q15M PRN BUCCAL DECREASED GLUCOSE; Start 09/01/18 at 02:00 Levothyroxine Sodium (Synthroid) 100 mcg DAILY@06 PO Last administered on 9at 05:16; Admin Dose 100 MCG; Start 09/01/18 at 06:00 Hydralazine HCl (Apresoline) 10 mg Q4H PRN IV ELEVATED BLOOD PRESSURE Last administered on 09/07/18 05:16; Admin Dose 10 MG; Start 09/01/18 at 09:00 Atorvastatin Calcium (Lipitor) 80 mg HS PO Last administered on 09/06/18at 20:47; Admin Dose 80 MG; Start 09/01/18 at 21:00 Sucralfate (Carafate Susp) 1 gm QID PO Last administered on 09/07/18at 12:25; Admin Dose 1 GM; Start 09/03/18 at 13:00 Acetaminophen/ Hydrocodone Bitart ([place] (5/325)) 1 tab Q4H PRN PO MODERATE PAIN LEVEL 4-6 Last administered on 09/04/18at 14:36; Admin Dose 1 TAB; Start 09/03/18 at 10:00 Scopolamine (Transderm-Scop) 1 patch Q72H TRANSDERM Last administered on 09/06/18at 11:39; Admin Dose 1 PATCH; Start 09/03/18 at 11:30 Pantoprazole (Protonix Iv) 40 mg BID@0600,1800 IV Last administered on 09/07/18at 05:15; Admin Dose 40 MG; Start 09/04/18 at 18:00 Polyethylene Glycol (Miralax) 17 gm DAILY PRN PO CONSTIPATION; Start 09/04/18 at 12:00 Mirtazapine (Remeron) 15 mg HS PO Last administered on 09/06/18at 20:47; Admin Dose 15 MG; Start 09/05/18 at 21:00 Lorazepam (Ativan) 0.5 mg Q8H PRN PO ANXIETY Last administered on 09/06/18at 16:24; Admin Dose 0.5 MG; Start 09/06/18 at 15:30 Insulin Aspart (Novolog Insulin Pen) NOVOLOG *MILD* ALGORITHM WITH MEALS BEDTIME SC ; Start 09/07/18 at 08:00 TIANA PENA Sep 07, 2018 12:48
--- NOTE | 2018-09-07 14:59 | PN ---
Date/Time of Note Date/Time of Note DATE: 09/07/18 TIME: 14:58 Objective Vitals Vital Signs Date Temp Pulse Resp B/P (MAP) Pulse Ox O2 O2 Flow FiO2 Time Delivery Rate 09/07/18 98.7 74 18 133/64 96 11:06 (87) 09/07/18 Nasal 03:38 Cannula 09/07/18 2.0 27 01:02 Intake and Output 09/06/18 09/06/18 09/07/18 1515:00 23:00 07:00 IntakeIntake Total 650 ml 940 ml OutputOutput Total 0 ml BalanceBalance 0 ml 650 ml 940 ml Results Result Diagram: 09/07/1828 09/07/18527 Medications Medications Current Medications Budesonide (Pulmicort (Neb)) 0.5 mg BID HHN Last administered on 09/06/18at 21:46; Admin Dose 0.5 MG; Start 08/31/18 at 21:30 Levalbuterol (Xopenex Neb) 0.63 mg Q4H PRN HHN WHEEZING AND SOB Last administered on 09/01/18at 03:33; Admin Dose 0.63 MG; Start 08/31/18 at 21:30 Lisinopril (Zestril) 20 mg DAILY PO Last administered on 09/07/18 09:17; Admin Dose 20 MG; Start 09/01/18 at 09:00 Magnesium Hydroxide (Milk Of Mag) 30 ml DAILY PRN PO NEEDED Last administered on 09/07/18 14:21; Admin Dose 30 ML; Start 08/31/18 at 21:30 Sertraline HCl (Zoloft) 25 mg DAILY PO Last administered on 09/07/18 09:16; Admin Dose 25 MG; Start 09/01/18 at 09:00 IV Flush (NS 3 ml) 3 ml PER PROTOCOL IV ; Start 08/31/18 at 21:30 Aspirin (Aspirin) 81 mg DAILY PO Last administered on 09/07/18 09:17; Admin Dose 81 MG; Start 09/01/18 at 09:00 Acetaminophen (Tylenol Tab) 650 mg Q6H PRN PO .PAIN 1-3 OR TEMP Last administered on 09/02/18 10:26; Admin Dose 650 MG; Start 08/31/18 at 21:30 Docusate Sodium (Colace) 100 mg Q12H PO Last administered on 09/07/18 09:16; Admin Dose 100 MG; Start 08/31/18 at 21:30 Bisacodyl (Dulcolax) 5 mg DAILY PRN PO .CONSTIPATION Last administered on 09/05/18 12:27; Admin Dose 5 MG; Start 08/31/18 at 21:30 Ondansetron HCl (Zofran Inj) 4 mg Q4H PRN IV NAUSEA AND/OR VOMITING Last administered on 09/07/18 10:20; Admin Dose 4 MG; Start 08/31/18 at 23:30 Metoclopramide HCl (Reglan) 10 mg Q6 PRN IV NAUSEA AND/OR VOMITING Last administered on 09/03/18 16:18; Admin Dose 10 MG; Start 08/31/18 at 23:30 Hydrocortisone (Anusol-Hc Supp) 25 mg BID [place] Last administered on 09/07/18 09:16; Admin Dose 25 MG; Start 09/01/18 at 09:00 Docusate Sodium (Colace) 100 mg DAILY PRN PO CONSTIPATION; Start 09/01/18 at 01:00 Cholecalciferol (Vitamin D) 1,000 unit DAILY PO Last administered on 09/07/18 09:15; Admin Dose 1,000 UNIT; Start 09/01/18 at 09:00 Meclizine HCl (Antivert) 25 mg TID PRN PO NAUSEA AND/OR VOMITING; Start 09/01/18 at 01:00 Miscellaneous Information 1 ea NOTE XX ; Start 09/01/18 at 02:00 Glucose (Glutose) 15 gm Q15M PRN PO DECREASED GLUCOSE; Start 09/01/18 at 02:00 Glucose (Glutose) 22.5 gm Q15M PRN PO DECREASED GLUCOSE; Start 09/01/18 at 02:00 Dextrose (D50w Syringe) 25 ml Q15M PRN IV DECREASED GLUCOSE; Start 09/01/18 at 02:00 Dextrose (D50w Syringe) 50 ml Q15M PRN IV DECREASED GLUCOSE; Start 09/01/18 at 02:00 Glucagon (Glucagen) 1 mg Q15M PRN IM DECREASED GLUCOSE; Start 09/01/18 at 02:00 Glucose (Glutose) 15 gm Q15M PRN BUCCAL DECREASED GLUCOSE; Start 09/01/18 at 02:00 Levothyroxine Sodium (Synthroid) 100 mcg DAILY@06 PO Last administered on 09/07/18 05:16; Admin Dose 100 MCG; Start 09/01/18 at 06:00 Hydralazine HCl (Apresoline) 10 mg Q4H PRN IV ELEVATED BLOOD PRESSURE Last administered on 09/07/18 05:16; Admin Dose 10 MG; Start 09/01/18 at 09:00 Atorvastatin Calcium (Lipitor) 80 mg HS PO Last administered on 09/06/18 20:47; Admin Dose 80 MG; Start 09/01/18 at 21:00 Sucralfate (Carafate Susp) 1 gm QID PO Last administered on 09/07/18 12:25; Admin Dose 1 GM; Start 09/03/18 at 13:00 Acetaminophen/ Hydrocodone Bitart ([place] (5/325)) 1 tab Q4H PRN PO MODERATE PAIN LEVEL 4-6 Last administered on 09/04/18 14:36; Admin Dose 1 TAB; Start 09/03/18 at 10:00 Scopolamine (Transderm-Scop) 1 patch Q72H TRANSDERM Last administered on 09/06/18 11:39; Admin Dose 1 PATCH; Start 09/03/18 at 11:30 Pantoprazole (Protonix Iv) 40 mg BID@0600,1800 IV Last administered on 09/07/18 05:15; Admin Dose 40 MG; Start 09/04/18 at 18:00 Polyethylene Glycol (Miralax) 17 gm DAILY PRN PO CONSTIPATION; Start 09/04/18 at 12:00 Mirtazapine (Remeron) 15 mg HS PO Last administered on 09/06/18 20:47; Admin Dose 15 MG; Start 09/05/18 at 21:00 Lorazepam (Ativan) 0.5 mg Q8H PRN PO ANXIETY Last administered on 09/06/18 16:24; Admin Dose 0.5 MG; Start 09/06/18 at 15:30 Insulin Aspart (Novolog Insulin Pen) NOVOLOG *MILD* ALGORITHM WITH MEALS BEDT MARCOS SC ; Start 09/07/18 at 08:00 VTE Prophylaxis Risk score (from Nsg)>0 risk: 5 SCD applied (from Nsg): Yes Lines/Catheters IV Catheter Type: Jerez in Place: No Assessment/Plan Hospital Course Subjective Patient appears very comfortable, still complains of the same chronic complaints of mild abdominal pain, headache, dizziness which have been chronic for the past couple months Objective Physical exam General: Patient is laying in bed and answers questions appropriately Mentation: Patient is alert and oriented Head: Normocephalic atraumatic Eyes: EOMI, pupils reactive to light Neck: Supple, nontender, midline Respiratory: Clear to auscultation bilaterally Cardiovascular: regular rate, no obvious murmurs Gastrointestinal: mildly-tender to palpation, bowel sounds heard. Neurological: Moves all extremities spontaneously, has some upper extremity difficulties Skin: No new skin lesions Assessment/Plan 1. Dizziness/ Vertigo-intermittent however chronic -Still with chronic dizziness ever since CABG 1 month ago - Neurology on board and appreciate recommendations. 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 neurology recs apprecated, states chronic abdominal pain, mild and improving however still persistent -epigastric discomfort, possible gastritis pain -lipase negative -ct negative -protonix/carafate -GI consulted -Due to recent finding of patient for uppercase similar symptoms, and a very benign physical exam I doubt this is an acute issue, in fact the patient's daughter stated that she has been complaining of abdominal pain ever since her CABG approximately last month Questionable postsurgical changes on CABG -Cardiothoracic surgeon took a look at the patient's CT, CT corresponds with postsurgical changes and small pericardial effusion, no acute intervention necessary nausea -acute on chronic, has been going on for some time according to daughter, may be secondary to all the meds she started after her CABG last month -continue meds as needed, added scopolamine patch. -Possibly due to gastritis versus possibly provocation of symptoms 2. HTN - stable - cont Lisinopril and other meds and monitor BP as well as renal function 3. Hypothyroidism - TSH very elevated and will need to confirm home dose to ensure increase - will continue with 100mcg for now and will need to follow up as outpatient for repeat TSH 4. Recent CVA - seems only deficit is confusion but moving all extremities with intact strength, but some left shoulder issues - per PT, will benefit from SNF/ARU after discharge, patient is already a resident at a care home facility 5. Aortic stenosis s/p valve replacement - ECHO per cardiology - Cardiology consultation appreciated 6. NIA- improving - restarted Lisinopril but will need to monitor for further Cr improvement prior to restarting home diuretics if needed - will continue monitoring and avoid nephrotoxic agents 7. Disposition -planned discharge back to care home facility, however patient's family request new care home facility and acute rehab unit evaluation. LIZZ BOJORQUEZ Sep 07, 2018 14:59
[2018-09-07 15:01] VITALS: BP 129/77; PULSE 88; RESP 18
--- NOTE | 2018-09-07 15:17 | CONS ---
Assessment/Plan Assessment/Plan Assessment/Plan (Recall) 73 F c/ multiple comorbidities, including kin-operative strokes 6 weeks ago...who presents for evaluation of nonspecific dizziness. The clinical picture is atypical for an acute cerebrovascular process.. Noted to be in NIA on arrival, which is a potential contributor.. MRI brain confirms multifocal chronic infarcts.. Punctate diffusion bright lesions anteriorly are without adc correlate, inconsistent w/ acute ischemia. CTA head and neck confirms multifocal stenoses..and a chronic BELL CAPTAIN thrombus. P: Agree w/ asa/lipitor daily for secondary stroke prevention Continued medical management and supportive care per primary PT/OT/ST as necessary Other management and supportive care per primary Will sign off for now; please call w/ adnl ?s Consultation Date/Type/Reason Admit Date/Time Aug 31, 2018 at 19:25 Type of Consult Neurology Reason for Consultation dizziness Requesting Provider: ALEX CADE Date/Time of Note DATE: 09/07/18 TIME: 15:17 24 HR Interval Summary Free Text/Dictation Continues acute care Exam/Review of Systems Exam Vitals Vital Signs Date Temp Pulse Resp B/P (MAP) Pulse Ox O2 O2 Flow FiO2 Time Delivery Rate 09/07/18 98.3 88 18 129/77 96 15:01 (94) 09/07/18 Nasal 03:38 Cannula 09/07/18 2.0 27 01:02 Intake and Output 09/06/18 09/06/18 09/07/18 1515:00 23:00 07:00 IntakeIntake Total 650 ml 940 ml OutputOutput Total 0 ml BalanceBalance 0 ml 650 ml 940 ml Results Result Diagram: 09/07/18 0528 09/07/18 0528 Results 24hrs Laboratory Tests Test 09/06/18 17:41 09/06/18 20:49 09/07/18 05:28 09/07/18 07:47 Bedside Glucose 110 141 102 White Blood Count 9.0 Red Blood Count 3.68 L Hemoglobin 11.6 L Hematocrit 36.9 L Mean Corpuscular Volume 100.3 Mean Corpuscular 31.5 Hemoglobin Mean Corpuscular 31.4 L Hemoglobin Concent Red Cell Distribution 13.4 Width Platelet Count 196 Mean Platelet Volume 9.9 Immature Granulocytes % 0.400 Neutrophils % 62.3 Lymphocytes % 21.3 Monocytes % 8.9 Eosinophils % 6.3 Basophils % 0.8 Nucleated Red Blood 0.0 Cells % Immature Granulocytes # 0.040 H Neutrophils # 5.6 Lymphocytes # 1.9 Monocytes # 0.8 Eosinophils # 0.6 H Basophils # 0.1 Nucleated Red Blood 0.0 Cells # Sodium Level 143 Potassium Level 3.3 L Chloride Level 107 Carbon Dioxide Level 29 Anion Gap 7 Blood Urea Nitrogen 20 Creatinine 0.96 Est Glomerular Filtrat Rate mL/min Glucose Level 102 Calcium Level 9.4 Phosphorus Level 2.6 Magnesium Level 2.0 Test 09/07/18 11:44 Bedside Glucose 128 Medications Medication Current Medications Budesonide (Pulmicort (Neb)) 0.5 mg BID HHN Last administered on 09/06/18 21:46; Admin Dose 0.5 MG; Start 08/31/18 at 21:30 Levalbuterol (Xopenex Neb) 0.63 mg Q4H PRN HHN WHEEZING AND SOB Last administered on 09/01/18 03:33; Admin Dose 0.63 MG; Start 08/31/18 at 21:30 Lisinopril (Zestril) 20 mg DAILY PO Last administered on 09/07/18 09:17; Admin Dose 20 MG; Start 09/01/18 at 09:00 Magnesium Hydroxide (Milk Of Mag) 30 ml DAILY PRN PO NEEDED Last administered on 09/07/18 14:21; Admin Dose 30 ML; Start 08/31/18 at 21:30 Sertraline HCl (Zoloft) 25 mg DAILY PO Last administered on 09/07/18 09:16; Admin Dose 25 MG; Start 09/01/18 at 09:00 IV Flush (NS 3 ml) 3 ml PER PROTOCOL IV ; Start 08/31/18 at 21:30 Aspirin (Aspirin) 81 mg DAILY PO Last administered on 09/07/18 09:17; Admin Dose 81 MG; Start 09/01/18 at 09:00 Acetaminophen (Tylenol Tab) 650 mg Q6H PRN PO .PAIN 1-3 OR TEMP Last administered on 09/02/18 10:26; Admin Dose 650 MG; Start 08/31/18 at 21:30 Docusate Sodium (Colace) 100 mg Q12H PO Last administered on 09/07/18 09:16; Admin Dose 100 MG; Start 08/31/18 at 21:30 Bisacodyl (Dulcolax) 5 mg DAILY PRN PO .CONSTIPATION Last administered on 09/05/18at 12:27; Admin Dose 5 MG; Start 08/31/18 at 21:30 Ondansetron HCl (Zofran Inj) 4 mg Q4H PRN IV NAUSEA AND/OR VOMITING Last administered on 09/07/18at 10:20; Admin Dose 4 MG; Start 08/31/18 at 23:30 Metoclopramide HCl (Reglan) 10 mg Q6 PRN IV NAUSEA AND/OR VOMITING Last administered on 09/03/18 16:18; Admin Dose 10 MG; Start 08/31/18 at 23:30 Hydrocortisone (Anusol-Hc Supp) 25 mg BID [place] Last administered on 09/07/18at 09:16; Admin Dose 25 MG; Start 09/01/18 at 09:00 Docusate Sodium (Colace) 100 mg DAILY PRN PO CONSTIPATION; Start 09/01/18 at 01:00 Cholecalciferol (Vitamin D) 1,000 unit DAILY PO Last administered on 09/07/18at 09:15; Admin Dose 1,000 UNIT; Start 09/01/18 at 09:00 Meclizine HCl (Antivert) 25 mg TID PRN PO NAUSEA AND/OR VOMITING; Start 09/01/18 at 01:00 Miscellaneous Information 1 ea NOTE XX ; Start 09/01/18 at 02:00 Glucose (Glutose) 15 gm Q15M PRN PO DECREASED GLUCOSE; Start 09/01/18 at 02:00 Glucose (Glutose) 22.5 gm Q15M PRN PO DECREASED GLUCOSE; Start 09/01/18 at 02:00 Dextrose (D50w Syringe) 25 ml Q15M PRN IV DECREASED GLUCOSE; Start 09/01/18 at 02:00 Dextrose (D50w Syringe) 50 ml Q15M PRN IV DECREASED GLUCOSE; Start 09/01/18 at 02:00 Glucagon (Glucagen) 1 mg Q15M PRN IM DECREASED GLUCOSE; Start 09/01/18 at 02:00 Glucose (Glutose) 15 gm Q15M PRN BUCCAL DECREASED GLUCOSE; Start 09/01/18 at 02:00 Levothyroxine Sodium (Synthroid) 100 mcg DAILY@06 PO Last administered on 09/07/18 05:16; Admin Dose 100 MCG; Start 09/01/18 at 06:00 Hydralazine HCl (Apresoline) 10 mg Q4H PRN IV ELEVATED BLOOD PRESSURE Last administered on 09/07/18 05:16; Admin Dose 10 MG; Start 09/01/18 at 09:00 Atorvastatin Calcium (Lipitor) 80 mg HS PO Last administered on 09/06/18 20:47; Admin Dose 80 MG; Start 09/01/18 at 21:00 Sucralfate (Carafate Susp) 1 gm QID PO Last administered on 09/07/18 12:25; Admin Dose 1 GM; Start 09/03/18 at 13:00 Acetaminophen/ Hydrocodone Bitart ([place] (5/325)) 1 tab Q4H PRN PO MODERATE PAIN LEVEL 4-6 Last administered on 09/04/18 14:36; Admin Dose 1 TAB; Start 09/03/18 at 10:00 Scopolamine (Transderm-Scop) 1 patch Q72H TRANSDERM Last administered on 09/06/18 11:39; Admin Dose 1 PATCH; Start 09/03/18 at 11:30 Pantoprazole (Protonix Iv) 40 mg BID@0600,1800 IV Last administered on 09/07/18 05:15; Admin Dose 40 MG; Start 09/04/18 at 18:00 Polyethylene Glycol (Miralax) 17 gm DAILY PRN PO CONSTIPATION; Start 09/04/18 at 12:00 Mirtazapine (Remeron) 15 mg HS PO Last administered on 09/06/18 20:47; Admin Dose 15 MG; Start 09/05/18 at 21:00 Lorazepam (Ativan) 0.5 mg Q8H PRN PO ANXIETY Last administered on 09/06/18 16:24; Admin Dose 0.5 MG; Start 09/06/18 at 15:30 Insulin Aspart (Novolog Insulin Pen) NOVOLOG *MILD* ALGORITHM WITH MEALS BEDTIME SC ; Start 09/07/18 at 08:00 JAE BOX Sep 07, 2018 15:17
[2018-09-07] MEDS ORDERED: BISACODYL 10 MG SUPP PR PRN (20:30)
[2018-09-07] MEDS: MIRTAZAPINE 15 MG TAB PO SCH (20:32)
[2018-09-07] MEDS: ATORVASTATIN 80 MG TAB PO SCH (20:32)
[2018-09-07 20:41] VITALS: BP 134/64; PULSE 85; RESP 18
[2018-09-08] VITALS: BP 114/61; PULSE 73; RESP 18
[2018-09-08 03:56] VITALS: BP 127/67; PULSE 78; RESP 18
[2018-09-08] MEDS ORDERED: SOD CHLORIDE 0.9% 500 ML IV ONE (05:00)
[2018-09-08] MEDS: LEVOTHYROXINE 100 MCG TAB PO SCH (05:36)
[2018-09-08] MEDS: HYDROCODONE/APAP (5/325) TAB PO PRN (05:37)
[2018-09-08] MEDS: PANTOPRAZOLE 40 MG INJ IV SCH (05:40)
[2018-09-08] MEDS: INSULIN ASPART [NOVOLOG] 3 ML PEN SC SCH ×4 (07:45→21:00)
[2018-09-08 08:00] VITALS: BP 144/65; PULSE 75; RESP 20
[2018-09-08] MEDS: BUDESONIDE (NEB) 0.5MG/2ML AMP HHN SCH ×2 (09:24→21:29)
[2018-09-08] MEDS: HYDROCORTISONE 25 MG SUPP PR SCH ×2 (09:45→21:56)
[2018-09-08] MEDS: DOCUSATE SODIUM 100 MG CAP PO SCH ×2 (09:45→21:56)
[2018-09-08] MEDS: ASPIRIN 81 MG TAB PO SCH (09:45)
[2018-09-08] MEDS: SERTRALINE 50 MG TAB PO SCH (09:45)
[2018-09-08] MEDS: CHOLECALCIFEROL 1,000 UNIT TAB PO SCH (09:45)
[2018-09-08] MEDS: SENNA TAB PO SCH ×2 (09:45→21:55)
[2018-09-08] MEDS: SUCRALFATE (100 MG/ML) 10ML CUP PO SCH ×4 (09:45→21:55)
[2018-09-08] MEDS: LISINOPRIL 20 MG TAB PO SCH (09:46)
[2018-09-08 11:12] VITALS: BP 127/56; PULSE 61; RESP 20
--- NOTE | 2018-09-08 12:59 | PN ---
Date/Time of Note Date/Time of Note DATE: 09/08/18 TIME: 12:56 Objective Vitals Vital Signs Date Temp Pulse Resp B/P (MAP) Pulse Ox O2 O2 Flow FiO2 Time Delivery Rate 09/08/18 98.0 61 20 127/56 100 11:12 (79) 09/08/18 Nasal 5.0 09:25 Cannula 09/07/18 21 21:03 Intake and Output 09/07/18 09/07/18 09/08/18 1515:00 23:00 07:00 IntakeIntake Total 240 ml 400 ml 580 ml BalanceBalance 240 ml 400 ml 580 ml Results Result Diagram: 09/08/1852509/08/18525 Medications Medications Current Medications Budesonide (Pulmicort (Neb)) 0.5 mg BID HHN Last administered on 09/08/18 09:24; Admin Dose 0.5 MG; Start 08/31/18 at 21:30 Levalbuterol (Xopenex Neb) 0.63 mg Q4H PRN HHN WHEEZING AND SOB Last admini stered on 09/01/18 03:33; Admin Dose 0.63 MG; Start 08/31/18 at 21:30 Lisinopril (Zestril) 20 mg DAILY PO Last administered on 09/08/18 09:46; Admin Dose 20 MG; Start 09/01/18 at 09:00 Magnesium Hydroxide (Milk Of Mag) 30 ml DAILY PRN PO NEEDED Last administered on 09/07/18 14:21; Admin Dose 30 ML; Start 08/31/18 at 21:30 Sertraline HCl (Zoloft) 25 mg DAILY PO Last administered on 09/08/18 09:45; Admin Dose 25 MG; Start 09/01/18 at 09:00 IV Flush (NS 3 ml) 3 ml PER PROTOCOL IV ; Start 08/31/18 at 21:30 Aspirin (Aspirin) 81 mg DAILY PO Last administered on 09/08/18 09:45; Admin Dose 81 MG; Start 09/01/18 at 09:00 Acetaminophen (Tylenol Tab) 650 mg Q6H PRN PO .PAIN 1-3 OR TEMP Last ad ministered on 09/02/18 10:26; Admin Dose 650 MG; Start 08/31/18 at 21:30 Docusate Sodium (Colace) 100 mg Q12H PO Last administered on 09/08/18 09:45; Admin Dose 100 MG; Start 08/31/18 at 21:30 Ondansetron HCl (Zofran Inj) 4 mg Q4H PRN IV NAUSEA AND/OR VOMITING Last administered on 09/07/18 10:20; Admin Dose 4 MG; Start 08/31/18 at 23:30 Metoclopramide HCl (Reglan) 10 mg Q6 PRN IV NAUSEA AND/OR VOMITING Last administered on 09/03/18 16:18; Admin Dose 10 MG; Start 08/31/18 at 23:30 Hydrocortisone (Anusol-Hc Supp) 25 mg BID [place] Last administered on 09/08/18 09:45; Admin Dose 25 MG; Start 09/01/18 at 09:00 Docusate Sodium (Colace) 100 mg DAILY PRN PO CONSTIPATION; Start 09/01/18 at 01:00 Cholecalciferol (Vitamin D) 1,000 unit DAILY PO Last administered on 09/08/18 09:45; Admin Dose 1,000 UNIT; Start 09/01/18 at 09:00 Meclizine HCl (Antivert) 25 mg TID PRN PO NAUSEA AND/OR VOMITING; Start 09/01/18 at 01:00 Miscellaneous Information 1 ea NOTE XX ; Start 09/01/18 at 02:00 Glucose (Glutose) 15 gm Q15M PRN PO DECREASED GLUCOSE; Start 09/01/18 at 02:00 Glucose (Glutose) 22.5 gm Q15M PRN PO DECREASED GLUCOSE; Start 09/01/18 at 02:00 Dextrose (D50w Syringe) 25 ml Q15M PRN IV DECREASED GLUCOSE; Start 09/01/18 at 02:00 Dextrose (D50w Syringe) 50 ml Q15M PRN IV DECREASED GLUCOSE; Start 09/01/18 at 02:00 Glucagon (Glucagen) 1 mg Q15M PRN IM DECREASED GLUCOSE; Start 09/01/18 at 02:00 Glucose (Glutose) 15 gm Q15M PRN BUCCAL DECREASED GLUCOSE; Start 09/01/18 at 02:00 Levothyroxine Sodium (Synthroid) 100 mcg DAILY@06 PO Last administered on 09/08/18 05:36; Admin Dose 100 MCG; Start 09/01/18 at 06:00 Hydralazine HCl (Apresoline) 10 mg Q4H PRN IV ELEVATED BLOOD PRESSURE Last ad ministered on 09/07/18 05:16; Admin Dose 10 MG; Start 09/01/18 at 09:00 Atorvastatin Calcium (Lipitor) 80 mg HS PO Last administered on 09/07/18 20:32; Admin Dose 80 MG; Start 09/01/18 at 21:00 Sucralfate (Carafate Susp) 1 gm QID PO Last administered on 09/08/18 09:45; Admin Dose 1 GM; Start 09/03/18 at 13:00 Acetaminophen/ Hydrocodone Bitart ([place] (5/325)) 1 tab Q4H PRN PO MODERATE PAIN LEVEL 4-6 Last administered on 09/08/18 05:37; Admin Dose 1 TAB; Start 09/03/18 at 10:00 Scopolamine (Transderm-Scop) 1 patch Q72H TRANSDERM Last administered on 09/06/18 11:39; Admin Dose 1 PATCH; Start 09/03/18 at 11:30 Pantoprazole (Protonix Iv) 40 mg BID@0600,1800 IV Last administered on 09/08/18 05:40; Admin Dose 40 MG; Start 09/04/18 at 18:00 Polyethylene Glycol (Miralax) 17 gm DAILY PRN PO CONSTIPATION Last administered on 09/07/18 20:32; Admin Dose 17 GM; Start 09/04/18 at 12:00 Mirtazapine (Remeron) 15 mg HS PO Last administered on 09/07/18 20:32; Admin Dose 15 MG; Start 09/05/18 at 21:00 Lorazepam (Ativan) 0.5 mg Q8H PRN PO ANXIETY Last administered on 09/06/18 16:24; Admin Dose 0.5 MG; Start 09/06/18 at 15:30 Insulin Aspart (Novolog Insulin Pen) NOVOLOG *MILD* ALGORITHM WITH MEALS BEDTIME SC ; Start 09/07/18 at 08:00 Bisacodyl (Dulcolax Supp) 10 mg DAILY PRN [place] CONSTIPATION Last administered on 09/07/18 20:32; Admin Dose 10 MG; Start 09/07/18 at 20:30 Senna (Senokot) 1 tab BID PO Last administered on 09/08/18at 09:45; Admin Dose 1 TAB; Start 09/08/18 at 09:30 VTE Prophylaxis Risk score (from Ns)>0 risk: 4 SCD applied (from Ns): Yes Lines/Catheters IV Catheter Type: Jerez in Place: No Assessment/Plan Hospital Course Subjective Patient appears very comfortable, still complains of the same chronic complaints of mild abdominal pain, headache, dizziness which have been chronic for the past couple months. Of note patient did have a rapid response called overnight, patient was straining on the toilet and appeared to have a vasovagal event, patient was seen by physician and given some fluid and now patient is back to within normal limits. Objective Physical exam General: Patient is laying in bed and answers questions appropriately Mentation: Patient is alert and oriented Head: Normocephalic atraumatic Eyes: EOMI, pupils reactive to light Neck: Supple, nontender, midline Respiratory: Clear to auscultation bilaterally Cardiovascular: regular rate, no obvious murmurs Gastrointestinal: mildly-tender to palpation, bowel sounds heard. Neurological: Moves all extremities spontaneously, has some upper extremity difficulties Skin: No new skin lesions Assessment/Plan Dizziness/ Vertigo-intermittent however chronic -Still with chronic dizziness ever since CABG 1 month ago - Neurology on board and appreciate recommendations. 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 neurology recs apprecated, states chronic abdominal pain, mild and improving however still persistent -epigastric discomfort, possible gastritis pain -lipase negative -ct negative -protonix/carafate -GI consulted -Due to recent finding of patient for uppercase similar symptoms, and a very benign physical exam I doubt this is an acute issue, in fact the patient's daughter stated that she has been complaining of abdominal pain ever since her CABG approximately last month Questionable postsurgical changes on CABG -Cardiothoracic surgeon took a look at the patient's CT, CT corresponds with postsurgical changes and small pericardial effusion, no acute intervention necessary nausea -acute on chronic, has been going on for some time according to daughter, may be secondary to all the meds she started after her CABG last month -continue meds as needed, added scopolamine patch. -Possibly due to gastritis versus possibly provocation of symptoms Vasovagal event with hypotension -Secondary to straining due to constipation -Monitor closely, this was momentary HTN - stable - cont Lisinopril and other meds and monitor BP as well as renal function Hypothyroidism - TSH very elevated and will need to confirm home dose to ensure increase - will continue with 100mcg for now and will need to follow up as outpatient for repeat TSH Recent CVA, not during this hospitalization - seems only deficit is confusion but moving all extremities with intact strength, but some left shoulder issues - per PT, will benefit from SNF/ARU after discharge, patient is already a resident at a prison facility Aortic stenosis s/p valve replacement - ECHO per cardiology - Cardiology consultation appreciated NIA- stable - restarted Lisinopril but will need to monitor for further Cr improvement prior to restarting home diuretics if needed - will continue monitoring and avoid nephrotoxic agents Disposition -planned discharge back to prison facility, however patient's family request new prison facility and acute rehab unit evaluation. LIZZ BOJORQUEZ Sep 08, 2018 12:59
--- NOTE | 2018-09-08 14:43 | CONS ---
Assessment/Plan Assessment/Plan Hospital Course (Demo Recall) Subjective She said that she almost passed out last night. A RR was called, she was on the toilet and likely had a vasovagal event. Current she says she just feels very tired. Gen: +generalized fatigue, Denies fever, chills CV: Denies chest pain, palpitations, SOB, ALFRED, orthopnea, PNA, edema, claudication Resp: Denies SOB or cough GI: Denies nausea, vomiting, diarrhea, constipation, abdominal pain Neuro: + lightheadedness, + dizziness, + presyncope Unable to obtain HPI or ROS due to altered mental status Medications and allergies reviewed Past medical, surgical, family and social history reviewed. Objective General: WD/WN, NAD HEENT: NC/AT, PERRLA, dry mucus membranes CV: RRR, grade 1/6 systolic murmur, S1/S2, no S3/S4, no JVD, no carotid bruits Respiratory: diminished BS bilat, no W/C/R, non-labored breathing GI: abdomen soft, NT/ND, normoactive bowel sounds Vascular: extremities are warm, 2+ radial/DT/PT pulses bilaterally, no edema Neuro: A/O x3, no focal deficits Assessment & Plan IMPRESSION: 1. Shortness of breath, assess for congestive heart failure.-Echo this admit 09/02 EF 60-65 2. History of aortic valve replacement with a bovine bioprosthetic valve.- proper function by echo 3. Cerebrovascular accident, acute, at time of valve replacement with now ongoing dizziness and weakness, as well as loss of vision per daughter. 4. Hypertension, borderline. 5. Hypothyroidism. 6. Diabetes mellitus. 7. Dyslipidemia. 8. Renal failure-stable 9. anterior mediastinal fluid collection versus loculated pericardial effusion by CT- would likely have been related to recent surgery and no significant pericardial effusion seen by echo so would favor mediastinal fluid collection at this time 10. Vasovagal event overnight 09/07 Recc: -Tele -Continue asa -Continue acei with slight increase -continue high dose statin -ongoing neuro eval -Follow volume status closely and creatinine closely with lasix still held Consultation Date/Type/Reason Admit Date/Time Aug 31, 2018 at 19:25 Initial Consult Date Type of Consult Cardiology Requesting Provider: ALEX CADE Date/Time of Note DATE: 09/08/18 TIME: 14:36 Exam/Review of Systems Vital Signs Vitals Vital Signs Date Temp Pulse Resp B/P (MAP) Pulse Ox O2 O2 Flow FiO2 Time Delivery Rate 09/08/18 98.0 61 20 127/56 100 11:12 (79) 09/08/18 Nasal 5.0 09:25 Cannula 09/07/18 21 21:03 Intake and Output 09/07/18 09/07/18 09/08/18 1515:00 23:00 07:00 IntakeIntake Total 240 ml 400 ml 580 ml BalanceBalance 240 ml 400 ml 580 ml Labs Result Diagram: 09/08/18 0526 09/08/18 0526 Results 24hrs Laboratory Tests Test 09/07/18 17:29 09/07/18 20:24 09/07/18 22:47 09/08/18 05:26 Bedside Glucose 102 101 116 White Blood Count 14.6 #H Red Blood Count 3.49 L Hemoglobin 11.0 L Hematocrit 35.4 L Mean Corpuscular Volume 101.4 H Mean Corpuscular 31.5 Hemoglobin Mean Corpuscular 31.1 L Hemoglobin Concent Red Cell Distribution 13.6 Width Platelet Count 189 Mean Platelet Volume 10.1 Immature Granulocytes % 0.600 H Neutrophils % 78.1 H Lymphocytes % 10.9 L Monocytes % 8.3 Eosinophils % 1.6 Basophils % 0.5 Nucleated Red Blood 0.0 Cells % Immature Granulocytes # 0.090 H Neutrophils # 11.4 H Lymphocytes # 1.6 Monocytes # 1.2 H Eosinophils # 0.2 Basophils # 0.1 Nucleated Red Blood 0.0 Cells # Sodium Level 139 Potassium Level 4.4 Chloride Level 106 Carbon Dioxide Level 27 Anion Gap 6 Blood Urea Nitrogen 25 H Creatinine 1.15 H Est Glomerular Filtrat Rate mL/min Glucose Level 113 Calcium Level 8.8 Phosphorus Level 2.8 Magnesium Level 2.2 Test 09/08/18 07:36 09/08/18 11:47 09/08/18 13:20 Bedside Glucose 104 94 Urine Color YELLOW Urine Clarity CLEAR Urine pH 6.0 Urine Specific [place] 1.010 Urine Ketones NEGATIVE Urine Nitrite NEGATIVE Urine Bilirubin NEGATIVE Urine Urobilinogen NEGATIVE Urine Leukocyte Esterase NEGATIVE Urine Hemoglobin NEGATIVE Urine Glucose NEGATIVE Urine Total Protein NEGATIVE Medications Medications Current Medications Budesonide (Pulmicort (Neb)) 0.5 mg BID HHN Last administered on 09/08/18 09:24; Admin Dose 0.5 MG; Start 08/31/18 at 21:30 Levalbuterol (Xopenex Neb) 0.63 mg Q4H PRN HHN WHEEZING AND SOB Last administered on 09/01/18 03:33; Admin Dose 0.63 MG; Start 08/31/18 at 21:30 Lisinopril (Zestril) 20 mg DAILY PO Last administered on 09/08/18 09:46; Admin Dose 20 MG; Start 09/01/18 at 09:00 Magnesium Hydroxide (Milk Of Mag) 30 ml DAILY PRN PO NEEDED Last administered on 09/07/18 14:21; Admin Dose 30 ML; Start 08/31/18 at 21:30 Sertraline HCl (Zoloft) 25 mg DAILY PO Last administered on 09/08/18 09:45; Admin Dose 25 MG; Start 09/01/18 at 09:00 IV Flush (NS 3 ml) 3 ml PER PROTOCOL IV ; Start 08/31/18 at 21:30 Aspirin (Aspirin) 81 mg DAILY PO Last administered on 09/08/18 09:45; Admin Dose 81 MG; Start 09/01/18 at 09:00 Acetaminophen (Tylenol Tab) 650 mg Q6H PRN PO .PAIN 1-3 OR TEMP Last administered on 09/02/18 10:26; Admin Dose 650 MG; Start 08/31/18 at 21:30 Docusate Sodium (Colace) 100 mg Q12H PO Last administered on 09/08/18 09:45; Admin Dose 100 MG; Start 08/31/18 at 21:30 Ondansetron HCl (Zofran Inj) 4 mg Q4H PRN IV NAUSEA AND/OR VOMITING Last administered on 09/07/18 10:20; Admin Dose 4 MG; Start 08/31/18 at 23:30 Metoclopramide HCl (Reglan) 10 mg Q6 PRN IV NAUSEA AND/OR VOMITING Last administered on 09/03/18 16:18; Admin Dose 10 MG; Start 08/31/18 at 23:30 Hydrocortisone (Anusol-Hc Supp) 25 mg BID [place] Last administered on 09/08/18 09:45; Admin Dose 25 MG; Start 09/01/18 at 09:00 Docusate Sodium (Colace) 100 mg DAILY PRN PO CONSTIPATION; Start 09/01/18 at 01:00 Cholecalciferol (Vitamin D) 1,000 unit DAILY PO Last administered on 09/08/18at 09:45; Admin Dose 1,000 UNIT; Start 09/01/18 at 09:00 Meclizine HCl (Antivert) 25 mg TID PRN PO NAUSEA AND/OR VOMITING; Start 09/01/18 at 01:00 Miscellaneous Information 1 ea NOTE XX ; Start 09/01/18 at 02:00 Glucose (Glutose) 15 gm Q15M PRN PO DECREASED GLUCOSE; Start 09/01/18 at 02:00 Glucose (Glutose) 22.5 gm Q15M PRN PO DECREASED GLUCOSE; Start 09/01/18 at 02:00 Dextrose (D50w Syringe) 25 ml Q15M PRN IV DECREASED GLUCOSE; Start 09/01/18 at 02:00 Dextrose (D50w Syringe) 50 ml Q15M PRN IV DECREASED GLUCOSE; Start 09/01/18 at 02:00 Glucagon (Glucagen) 1 mg Q15M PRN IM DECREASED GLUCOSE; Start 09/01/18 at 02:00 Glucose (Glutose) 15 gm Q15M PRN BUCCAL DECREASED GLUCOSE; Start 09/01/18 at 02:00 Levothyroxine Sodium (Synthroid) 100 mcg DAILY@06 PO Last administered on 09/08/18at 05:36; Admin Dose 100 MCG; Start 09/01/18 at 06:00 Hydralazine HCl (Apresoline) 10 mg Q4H PRN IV ELEVATED BLOOD PRESSURE Last administered on 09/07/18at 05:16; Admin Dose 10 MG; Start 09/01/18 at 09:00 Atorvastatin Calcium (Lipitor) 80 mg HS PO Last administered on 09/07/18at 20:32; Admin Dose 80 MG; Start 09/01/18 at 21:00 Sucralfate (Carafate Susp) 1 gm QID PO Last administered on 09/08/18at 13:15; Admin Dose 1 GM; Start 09/03/18 at 13:00 Acetaminophen/ Hydrocodone Bitart ([place] (5/325)) 1 tab Q4H PRN PO MODERATE PAIN LEVEL 4-6 Last administered on 09/08/18 05:37; Admin Dose 1 TAB; Start 09/03/18 at 10:00 Scopolamine (Transderm-Scop) 1 patch Q72H TRANSDERM Last administered on 09/06/18 11:39; Admin Dose 1 PATCH; Start 09/03/18 at 11:30 Polyethylene Glycol (Miralax) 17 gm DAILY PRN PO CONSTIPATION Last administered on 09/07/18 20:32; Admin Dose 17 GM; Start 09/04/18 at 12:00 Mirtazapine (Remeron) 15 mg HS PO Last administered on 09/07/18 20:32; Admin Dose 15 MG; Start 09/05/18 at 21:00 Lorazepam (Ativan) 0.5 mg Q8H PRN PO ANXIETY Last administered on 09/06/18 16:24; Admin Dose 0.5 MG; Start 09/06/18 at 15:30 Insulin Aspart (Novolog Insulin Pen) NOVOLOG *MILD* ALGORITHM WITH MEALS BEDTIME SC ; Start 09/07/18 at 08:00 Bisacodyl (Dulcolax Supp) 10 mg DAILY PRN [place] CONSTIPATION Last administered on 09/07/18 20:32; Admin Dose 10 MG; Start 09/07/18 at 20:30 Senna (Senokot) 1 tab BID PO Last administered on 09/08/18 09:45; Admin Dose 1 TAB; Start 09/08/18 at 09:30 Pantoprazole (Protonix Tab) 40 mg DAILY@06 PO ; Start 09/09/18 at 06:00 PRIETO PABLO DO Sep 08, 2018 14:43
[2018-09-08 15:22] VITALS: BP 114/55; PULSE 74; RESP 20
[2018-09-08 19:34] VITALS: BP 119/56; PULSE 60; RESP 20
[2018-09-08] MEDS: ATORVASTATIN 80 MG TAB PO SCH (21:55)
[2018-09-08] MEDS: MIRTAZAPINE 15 MG TAB PO SCH (21:55)
[2018-09-09] VITALS (9 sets, daily range): BP systolic 123–182; BP diastolic 56–87; PULSE 60–80; RESP 17–20
[2018-09-09] MEDS: PANTOPRAZOLE (EC) 40 MG TAB PO SCH (06:20)
[2018-09-09] MEDS: LEVOTHYROXINE 100 MCG TAB PO SCH (06:20)
[2018-09-09] MEDS: INSULIN ASPART [NOVOLOG] 3 ML PEN SC SCH ×4 (07:34→21:00)
[2018-09-09] MEDS: HYDROCORTISONE 25 MG SUPP PR SCH ×2 (08:17→20:59)
[2018-09-09] MEDS: LISINOPRIL 20 MG TAB PO SCH (08:17)
[2018-09-09] MEDS: SUCRALFATE (100 MG/ML) 10ML CUP PO SCH ×4 (08:17→20:59)
[2018-09-09] MEDS: SERTRALINE 50 MG TAB PO SCH (08:17)
[2018-09-09] MEDS: SENNA TAB PO SCH ×2 (08:17→21:00)
[2018-09-09] MEDS: CHOLECALCIFEROL 1,000 UNIT TAB PO SCH (08:17)
[2018-09-09] MEDS: ASPIRIN 81 MG TAB PO SCH (08:22)
[2018-09-09] MEDS: DOCUSATE SODIUM 100 MG CAP PO SCH ×2 (08:22→21:00)
[2018-09-09] MEDS: BUDESONIDE (NEB) 0.5MG/2ML AMP HHN SCH ×2 (08:49→20:03)
[2018-09-09] MEDS ORDERED: SOD CHLORIDE 0.9% 1,000 ML IV SCH (09:00)
[2018-09-09] MEDS ORDERED: SOD CHLORIDE 0.9% 500 ML IV SCH ×2 (09:00→09:30)
--- NOTE | 2018-09-09 11:31 | PN ---
Date/Time of Note Date/Time of Note DATE: 09/09/18 TIME: 11:30 Objective Vitals Vital Signs Date Temp Pulse Resp B/P (MAP) Pulse Ox O2 O2 Flow FiO2 Time Delivery Rate 09/09/18 2.0 08:50 09/09/18 77 94 21 08:50 09/09/18 98.0 18 147/75 07:31 (99) 09/09/18 Nasal 04:03 Cannula Intake and Output 09/08/18 09/08/18 09/09/18 1515:00 23:00 07:00 IntakeIntake Total 650 ml OutputOutput Total 150 ml BalanceBalance -150 ml 650 ml Results Result Diagram: 09/09/18 0507 09/09/18 0507 Medications Medications Current Medications Budesonide (Pulmicort (Neb)) 0.5 mg BID HHN Last administered on 09/09/18 08:49; Admin Dose 0.5 MG; Start 08/31/18 at 21:30 Levalbuterol (Xopenex Neb) 0.63 mg Q4H PRN HHN WHEEZING AND SOB Last administered on 09/01/18 03:33; Admin Dose 0.63 MG; Start 08/31/18 at 21:30 Lisinopril (Zestril) 20 mg DAILY PO Last administered on 09/09/18 08:17; Admin Dose 20 MG; Start 09/01/18 at 09:00 Magnesium Hydroxide (Milk Of Mag) 30 ml DAILY PRN PO NEEDED Last administered on 09/07/18 14:21; Admin Dose 30 ML; Start 08/31/18 at 21:30 Sertraline HCl (Zoloft) 25 mg DAILY PO Last administered on 09/09/18 08:17; Admin Dose 25 MG; Start 09/01/18 at 09:00 IV Flush (NS 3 ml) 3 ml PER PROTOCOL IV ; Start 08/31/18 at 21:30 Aspirin (Aspirin) 81 mg DAILY PO Last administered on 09/09/18 08:22; Admin Dose 81 MG; Start 09/01/18 at 09:00 Acetaminophen (Tylenol Tab) 650 mg Q6H PRN PO .PAIN 1-3 OR TEMP Last administered on 09/02/18 10:26; Admin Dose 650 MG; Start 08/31/18 at 21:30 Docusate Sodium (Colace) 100 mg Q12H PO Last administered on 09/09/18at 08:22; Admin Dose 100 MG; Start 08/31/18 at 21:30 Ondansetron HCl (Zofran Inj) 4 mg Q4H PRN IV NAUSEA AND/OR VOMITING Last ad ministered on 09/07/18at 10:20; Admin Dose 4 MG; Start 08/31/18 at 23:30 Metoclopramide HCl (Reglan) 10 mg Q6 PRN IV NAUSEA AND/OR VOMITING Last administered on 09/03/18at 16:18; Admin Dose 10 MG; Start 08/31/18 at 23:30 Hydrocortisone (Anusol-Hc Supp) 25 mg BID DC Last administered on 09/09/18at 08:17; Admin Dose 25 MG; Start 09/01/18 at 09:00 Docusate Sodium (Colace) 100 mg DAILY PRN PO CONSTIPATION; Start 09/01/18 at 01:00 Cholecalciferol (Vitamin D) 1,000 unit DAILY PO Last administered on 09/09/18at 08:17; Admin Dose 1,000 UNIT; Start 09/01/18 at 09:00 Meclizine HCl (Antivert) 25 mg TID PRN PO NAUSEA AND/OR VOMITING; Start 09/01/18 at 01:00 Miscellaneous Information 1 ea NOTE XX ; Start 09/01/18 at 02:00 Glucose (Glutose) 15 gm Q15M PRN PO DECREASED GLUCOSE; Start 09/01/18 at 02:00 Glucose (Glutose) 22.5 gm Q15M PRN PO DECREASED GLUCOSE; Start 09/01/18 at 02:00 Dextrose (D50w Syringe) 25 ml Q15M PRN IV DECREASED GLUCOSE; Start 09/01/18 at 02:00 Dextrose (D50w Syringe) 50 ml Q15M PRN IV DECREASED GLUCOSE; Start 09/01/18 at 02:00 Glucagon (Glucagen) 1 mg Q15M PRN IM DECREASED GLUCOSE; Start 09/01/18 at 02:00 Glucose (Glutose) 15 gm Q15M PRN BUCCAL DECREASED GLUCOSE; Start 09/01/18 at 02:00 Levothyroxine Sodium (Synthroid) 100 mcg DAILY@06 PO Last administered on 09/09/18at 06:20; Admin Dose 100 MCG; Start 09/01/18 at 06:00 Hydralazine HCl (Apresoline) 10 mg Q4H PRN IV ELEVATED BLOOD PRESSURE Last administered on 09/07/18 05:16; Admin Dose 10 MG; Start 09/01/18 at 09:00 Atorvastatin Calcium (Lipitor) 80 mg HS PO Last administered on 09/08/18 21:55; Admin Dose 80 MG; Start 09/01/18 at 21:00 Sucralfate (Carafate Susp) 1 gm QID PO Last administered on 09/09/18 08:17; Admin Dose 1 GM; Start 09/03/18 at 13:00 Acetaminophen/ Hydrocodone Bitart ([place] (5/325)) 1 tab Q4H PRN PO MODERATE PAIN LEVEL 4-6 Last administered on 09/08/18 05:37; Admin Dose 1 TAB; Start 09/03/18 at 10:00 Scopolamine (Transderm-Scop) 1 patch Q72H TRANSDERM Last administered on 09/06/18 11:39; Admin Dose 1 PATCH; Start 09/03/18 at 11:30 Polyethylene Glycol (Miralax) 17 gm DAILY PRN PO CONSTIPATION Last administered on 09/07/18 20:32; Admin Dose 17 GM; Start 09/04/18 at 12:00 Mirtazapine (Remeron) 15 mg HS PO Last administered on 09/08/18 21:55; Admin Dose 15 MG; Start 09/05/18 at 21:00 Lorazepam (Ativan) 0.5 mg Q8H PRN PO ANXIETY Last administered on 09/06/18 16:24; Admin Dose 0.5 MG; Start 09/06/18 at 15:30 Insulin Aspart (Novolog Insulin Pen) NOVOLOG *MILD* ALGORITHM WITH MEALS BEDTIME SC Last administered on 09/08/18 17:14; Admin Dose 2 UNIT; Start 09/07/18 at 08:00 Bisacodyl (Dulcolax Supp) 10 mg DAILY PRN DC CONSTIPATION Last administered on 09/07/18 20:32; Admin Dose 10 MG; Start 09/07/18 at 20:30 Senna (Senokot) 1 tab BID PO Last administered on 09/09/18 08:17; Admin Dose 1 TAB; Start 09/08/18 at 09:30 Pantoprazole (Protonix Tab) 40 mg DAILY@06 PO Last administered on 09/09/18at 06:20; Admin Dose 40 MG; Start 09/09/18 at 06:00 Sodium Chloride 500 ml @ 50 mls/hr Q10H IV Last administered on 09/09/18at 09:29; Admin Dose 50 MLS/HR; Start 09/09/18 at 09:30; Stop 09/09/18 at 19:29 VTE Prophylaxis Risk score (from Ns)>0 risk: 5 SCD applied (from [facility] [place]): Yes Lines/Catheters IV Catheter Type: Jerez in Place: No Assessment/Plan Hospital Course Subjective Patient appears very comfortable, still complains of the same chronic complaints of mild abdominal pain, headache, dizziness which have been chronic for the past couple months. Objective Physical exam General: Patient is laying in bed and answers questions appropriately Mentation: Patient is alert and oriented Head: Normocephalic atraumatic Eyes: EOMI, pupils reactive to light Neck: Supple, nontender, midline Respiratory: Clear to auscultation bilaterally Cardiovascular: regular rate, no obvious murmurs Gastrointestinal: mildly-tender to palpation, bowel sounds heard. Neurological: Moves all extremities spontaneously, has some upper extremity difficulties Skin: No new skin lesions Assessment/Plan Dizziness/ Vertigo-intermittent however chronic -Still with chronic dizziness ever since CABG 1 month ago - Neurology on board and appreciate recommendations. 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 neurology recs apprecated, states chronic abdominal pain, mild and improving however still persistent -epigastric discomfort, possible gastritis pain -lipase negative -ct negative -protonix/carafate -GI consulted -Due to recent finding of patient for uppercase similar symptoms, and a very benign physical exam I doubt this is an acute issue, in fact the patient's daughter stated that she has been complaining of abdominal pain ever since her CABG approximately last month Questionable postsurgical changes on CABG -Cardiothoracic surgeon took a look at the patient's CT, CT corresponds with postsurgical changes and small pericardial effusion, no acute intervention necessary nausea -acute on chronic, has been going on for some time according to daughter, may be secondary to all the meds she started after her CABG last month -continue meds as needed, added scopolamine patch. -Possibly due to gastritis versus possibly provocation of symptoms Vasovagal event with hypotension -Secondary to straining due to constipation -Monitor closely, this was momentary HTN - stable - cont Lisinopril and other meds and monitor BP as well as renal function Hypothyroidism - TSH very elevated and will need to confirm home dose to ensure increase - will continue with 100mcg for now and will need to follow up as outpatient for repeat TSH Recent CVA, not during this hospitalization - seems only deficit is confusion but moving all extremities with intact strength, but some left shoulder issues - per PT, will benefit from SNF/ARU after discharge, patient is already a resident at a long term facility Aortic stenosis s/p valve replacement - ECHO per cardiology - Cardiology consultation appreciated NIA-mild worsening - restarted Lisinopril but will need to monitor for further Cr improvement prior to restarting home diuretics if needed - will continue monitoring and avoid nephrotoxic agents -Nephrology consulted -We will attempt fluid challenge Cirrhosis -Incidentally found on CT of the abdomen pelvis -Explained to daughter the need for close monitoring, may need to reinforce before discharge Disposition -planned discharge back to long term facility, however patient's family request new long term facility and acute rehab unit evaluation. -Nephrology consulted for mild NIA LIZZ BOJORQUEZ Sep 09, 2018 11:31
[2018-09-09] MEDS: SCOPOLAMINE 1.5 MG PATCH TRANSDERM SCH (11:51)
--- NOTE | 2018-09-09 13:40 | CONS ---
Assessment/Plan Assessment/Plan Hospital Course (Demo Recall) Subjective No acute events, no complaints other than fatigue Gen: +generalized fatigue, Denies fever, chills CV: Denies chest pain, palpitations, SOB, ALFRED, orthopnea, PNA, edema, claudication Resp: Denies SOB or cough GI: Denies nausea, vomiting, diarrhea, constipation, abdominal pain Neuro: Denies having lightheadedness, dizziness Medications and allergies reviewed Past medical, surgical, family and social history reviewed. Objective General: WD/WN, NAD HEENT: NC/AT, PERRLA, dry mucus membranes CV: RRR, grade 1/6 systolic murmur, S1/S2, no S3/S4, no JVD, no carotid bruits Respiratory: diminished BS bilat, no W/C/R, non-labored breathing GI: abdomen soft, NT/ND, normoactive bowel sounds Vascular: extremities are warm, 2+ radial/DT/PT pulses bilaterally, no edema Neuro: A/O x3, no focal deficits Assessment & Plan IMPRESSION: 1. Shortness of breath, 03/10 #9 -Echo this admit 09/02 EF 60-65 2. History of aortic valve replacement with a bovine bioprosthetic valve.-prop er function by echo 3. Cerebrovascular accident, acute, at time of valve replacement with now ongoi ng dizziness and weakness, as well as loss of vision per daughter. 4. Hypertension, borderline. 5. Hypothyroidism. 6. Diabetes mellitus. 7. Dyslipidemia. 8. NIA - Cr trending up 9. anterior mediastinal fluid collection versus loculated pericardial effusion by CT- would likely have been related to recent surgery and no significant pericardial effusion seen by echo so would favor mediastinal fluid collection at this time 10. Vasovagal event overnight 09/07 11. Dizziness, likely vertigo Recc: -Tele -Continue asa -Continue current BP meds, prn meds ordered -continue high dose statin -ongoing neuro eval -Follow volume status closely and creatinine closely with lasix still held Consultation Date/Type/Reason Admit Date/Time Aug 31, 2018 at 19:25 Initial Consult Date Type of Consult Cardiology Requesting Provider: ALEX CADE Date/Time of Note DATE: 09/09/18 TIME: 13:36 Exam/Review of Systems Vital Signs Vitals Vital Signs Date Temp Pulse Resp B/P (MAP) Pulse Ox O2 O2 Flow FiO2 Time Delivery Rate 09/09/18 98.2 60 17 167/72 95 11:55 (103) 09/09/18 2.0 08:50 09/09/18 21 08:50 09/09/18 Nasal 04:03 Cannula Intake and Output 09/08/18 09/08/18 09/09/18 1515:00 23:00 07:00 IntakeIntake Total 650 ml OutputOutput Total 150 ml BalanceBalance -150 ml 650 ml Labs Result Diagram: 09/09/18 0507 09/09/18 0507 Results 24hrs Laboratory Tests Test 09/08/18 16:51 09/08/18 22:05 09/09/18 05:07 09/09/18 05:35 Bedside Glucose 185 100 105 White Blood Count 7.7 # Red Blood Count 3.33 L Hemoglobin 10.3 L Hematocrit 34.7 L Mean Corpuscular Volume 104.2 H Mean Corpuscular 30.9 Hemoglobin Mean Corpuscular 29.7 L Hemoglobin Concent Red Cell Distribution 13.4 Width Platelet Count 152 Mean Platelet Volume 10.3 Immature Granulocytes % 0.300 Neutrophils % 56.7 Lymphocytes % 27.0 Monocytes % 9.1 Eosinophils % 6.1 Basophils % 0.8 Nucleated Red Blood 0.0 Cells % Immature Granulocytes # 0.020 Neutrophils # 4.4 Lymphocytes # 2.1 Monocytes # 0.7 Eosinophils # 0.5 Basophils # 0.1 Nucleated Red Blood 0.0 Cells # Sodium Level 140 Potassium Level 4.2 Chloride Level 105 Carbon Dioxide Level 31 Anion Gap 4 L Blood Urea Nitrogen 30 H Creatinine 1.32 H Est Glomerular Filtrat Rate mL/min Glucose Level 103 Calcium Level 8.8 Phosphorus Level 3.6 Magnesium Level 2.3 Test 09/09/18 07:32 09/09/18 10:19 09/09/18 11:47 Bedside Glucose 113 111 Vitamin D 1,25-Dihydroxy 46.0 Medications Medications Current Medications Budesonide (Pulmicort (Neb)) 0.5 mg BID HHN Last administered on 09/09/18at 08:49; Admin Dose 0.5 MG; Start 08/31/18 at 21:30 Levalbuterol (Xopenex Neb) 0.63 mg Q4H PRN HHN WHEEZING AND SOB Last administered on 09/01/18at 03:33; Admin Dose 0.63 MG; Start 08/31/18 at 21:30 Lisinopril (Zestril) 20 mg DAILY PO Last administered on 09/09/18 08:17; Admin Dose 20 MG; Start 09/01/18 at 09:00 Magnesium Hydroxide (Milk Of Mag) 30 ml DAILY PRN PO NEEDED Last administered on 09/07/18 14:21; Admin Dose 30 ML; Start 08/31/18 at 21:30 Sertraline HCl (Zoloft) 25 mg DAILY PO Last administered on 09/09/18 08:17; Admin Dose 25 MG; Start 09/01/18 at 09:00 IV Flush (NS 3 ml) 3 ml PER PROTOCOL IV ; Start 08/31/18 at 21:30 Aspirin (Aspirin) 81 mg DAILY PO Last administered on 09/09/18 08:22; Admin Dose 81 MG; Start 09/01/18 at 09:00 Acetaminophen (Tylenol Tab) 650 mg Q6H PRN PO .PAIN 1-3 OR TEMP Last administered on 09/02/18 10:26; Admin Dose 650 MG; Start 08/31/18 at 21:30 Docusate Sodium (Colace) 100 mg Q12H PO Last administered on 09/09/18 08:22; Admin Dose 100 MG; Start 08/31/18 at 21:30 Ondansetron HCl (Zofran Inj) 4 mg Q4H PRN IV NAUSEA AND/OR VOMITING Last ad ministered on 09/07/18 10:20; Admin Dose 4 MG; Start 08/31/18 at 23:30 Metoclopramide HCl (Reglan) 10 mg Q6 PRN IV NAUSEA AND/OR VOMITING Last administered on 09/03/18 16:18; Admin Dose 10 MG; Start 08/31/18 at 23:30 Hydrocortisone (Anusol-Hc Supp) 25 mg BID SC Last administered on 09/09/18 08:17; Admin Dose 25 MG; Start 09/01/18 at 09:00 Docusate Sodium (Colace) 100 mg DAILY PRN PO CONSTIPATION; Start 09/01/18 at 01:00 Cholecalciferol (Vitamin D) 1,000 unit DAILY PO Last administered on 09/09/18 08:17; Admin Dose 1,000 UNIT; Start 09/01/18 at 09:00 Meclizine HCl (Antivert) 25 mg TID PRN PO NAUSEA AND/OR VOMITING; Start 09/01/18 at 01:00 Miscellaneous Information 1 ea NOTE XX ; Start 09/01/18 at 02:00 Glucose (Glutose) 15 gm Q15M PRN PO DECREASED GLUCOSE; Start 09/01/18 at 02:00 Glucose (Glutose) 22.5 gm Q15M PRN PO DECREASED GLUCOSE; Start 09/01/18 at 02:00 Dextrose (D50w Syringe) 25 ml Q15M PRN IV DECREASED GLUCOSE; Start 09/01/18 at 02:00 Dextrose (D50w Syringe) 50 ml Q15M PRN IV DECREASED GLUCOSE; Start 09/01/18 at 02:00 Glucagon (Glucagen) 1 mg Q15M PRN IM DECREASED GLUCOSE; Start 09/01/18 at 02:00 Glucose (Glutose) 15 gm Q15M PRN BUCCAL DECREASED GLUCOSE; Start 09/01/18 at 02:00 Levothyroxine Sodium (Synthroid) 100 mcg DAILY@06 PO Last administered on 09/09/18at 06:20; Admin Dose 100 MCG; Start 09/01/18 at 06:00 Hydralazine HCl (Apresoline) 10 mg Q4H PRN IV ELEVATED BLOOD PRESSURE Last administered on 09/07/18at 05:16; Admin Dose 10 MG; Start 09/01/18 at 09:00 Atorvastatin Calcium (Lipitor) 80 mg HS PO Last administered on 09/08/18at 21:55; Admin Dose 80 MG; Start 09/01/18 at 21:00 Sucralfate (Carafate Susp) 1 gm QID PO Last administered on 09/09/18at 12:59; Admin Dose 1 GM; Start 09/03/18 at 13:00 Acetaminophen/ Hydrocodone Bitart ([place] (5/325)) 1 tab Q4H PRN PO MODERATE PAIN LEVEL 4-6 Last administered on 09/08/18at 05:37; Admin Dose 1 TAB; Start 09/03/18 at 10:00 Scopolamine (Transderm-Scop) 1 patch Q72H TRANSDERM Last administered on 09/09/18at 11:51; Admin Dose 1 PATCH; Start 09/03/18 at 11:30 Polyethylene Glycol (Miralax) 17 gm DAILY PRN PO CONSTIPATION Last administered on 09/07/18 20:32; Admin Dose 17 GM; Start 09/04/18 at 12:00 Mirtazapine (Remeron) 15 mg HS PO Last administered on 09/08/18 21:55; Admin Dose 15 MG; Start 09/05/18 at 21:00 Lorazepam (Ativan) 0.5 mg Q8H PRN PO ANXIETY Last administered on 09/06/18 16:24; Admin Dose 0.5 MG; Start 09/06/18 at 15:30 Insulin Aspart (Novolog Insulin Pen) NOVOLOG *MILD* ALGORITHM WITH MEALS BEDTIME SC Last administered on 09/08/18 17:14; Admin Dose 2 UNIT; Start 09/07/18 at 08:00 Bisacodyl (Dulcolax Supp) 10 mg DAILY PRN SC CONSTIPATION Last administered on 09/07/18 20:32; Admin Dose 10 MG; Start 09/07/18 at 20:30 Senna (Senokot) 1 tab BID PO Last administered on 09/09/18 08:17; Admin Dose 1 TAB; Start 09/08/18 at 09:30 Pantoprazole (Protonix Tab) 40 mg DAILY@06 PO Last administered on 09/09/18 06:20; Admin Dose 40 MG; Start 09/09/18 at 06:00 Sodium Chloride 500 ml @ 50 mls/hr Q10H IV Last administered on 09/09/18 09:29; Admin Dose 50 MLS/HR; Start 09/09/18 at 09:30; Stop 09/09/18 at 19:29 PRIETO PABLO DO Sep 09, 2018 13:40
[2018-09-09] MEDS: hydrALAzine 20 MG INJ IV PRN (16:03)
[2018-09-09] MEDS: NIFEdipine (XL) 30 MG TAB PO SCH (17:44)
[2018-09-09] MEDS: MIRTAZAPINE 15 MG TAB PO SCH (21:00)
[2018-09-09] MEDS: ATORVASTATIN 80 MG TAB PO SCH (21:00)
[2018-09-10] VITALS: BP 138/65; PULSE 81; RESP 20
[2018-09-10 04:00] VITALS: BP 148/63; PULSE 68; RESP 20
[2018-09-10] MEDS: LEVOTHYROXINE 100 MCG TAB PO SCH (05:15)
[2018-09-10] MEDS: PANTOPRAZOLE (EC) 40 MG TAB PO SCH (05:15)
--- NOTE | 2018-09-10 06:25 | CONS ---
DATE OF ADMISSION: 08/31/2018 DATE OF CONSULTATION: TYPE OF CONSULTATION: Nephrology. REASON FOR CONSULTATION: Acute kidney injury, possible CKD. PHYSICIAN REQUESTING CONSULT: Lizz Alvares MD HISTORY OF PRESENT ILLNESS: This is a 73-year-old female with a past medical history of hypertension , hypothyroidism, history of diabetes, history of dyslipidemia, history of aortic stenosis, probable history of CKD, who presents to [facility] with weakness. The patient was ____ whe re she has been the last 6 weeks after having suffered a CV stroke. The patient also had recent aort ic valve replacement. The patient then comes to [facility] after she was noted to be confused. Upon arrival, the patient's CT scan showed no acute findings of CVA. The patient was s ubsequently admitted to telemetry, was seen by business applications developer and neurologist. In terms of patient's r enal history, on admission, the patient noted to have elevated creatinine of 1.3 mg/dL. The patient' s creatinine has been fluctuating during the hospital course but remained stable. The patient denies any prior history of acute kidney injury, but does report a history of having proteinuria. There hart s been no report of any hemoptysis, hematemesis or hematochezia. PAST MEDICAL HISTORY: See above, history of probable CKD, hypertension, CVA, diabetes, dyslipidemia, history of aortic stenosis. PAST SURGICAL HISTORY: Status post aortic valve replacement. FAMILY HISTORY: No family history of kidney disease. SOCIAL HISTORY: Does not drink, smoke, do drugs. MEDICATIONS: The patient's medications have been reviewed. ALLERGIES: Have been reviewed. REVIEW OF SYSTEMS: A 14-point review of systems conducted, pertinent positives as stated in the HPI otherwise negative. PHYSICAL EXAMINATION: VITAL SIGNS: Blood pressure 147/75, respiration 18, pulse 53, temperature 98.0. HEENT: Head is normocephalic. NECK: Supple. HEART: Regular rate. LUNGS: Show diminished breath sounds at the base. ABDOMEN: Soft, nontender to palpation, no rebound or guarding. EXTREMITIES: Negative for clubbing, cyanosis, no edema. DERMATOLOGIC: No rashes. MUSCULOSKELETAL: No joint effusion. NEUROLOGIC: No focal deficits. MEDICATIONS: Have been reviewed. LABORATORY DATA: Has been reviewed. IMAGING STUDIES: Have been reviewed. ASSESSMENT AND PLAN: This is a 73-year-old female who presents with: 1. Nonoliguric acute kidney injury on top of chronic kidney disease with unknown baseline creatinine . Etiology of current acute kidney injury is likely secondary to hemodynamics. The patient's renal function is fluctuating, but appears to be stabilizing around a creatinine 1.2 mg/dL. The patient's urinalysis is bland, no active sediment. Recommendation at this point is to check for renal ultrasou nd to evaluate renal parenchyma. Agree with a gentle fluid challenge. Would continue SALMA inhibitor at this time. Otherwise, supportive care, renally dose all meds. 2. Anemia. Monitor ____ levels. 3. ____. Monitor calcium and phosphate levels. Check her vitamin D, PTH level. 4. Hypertension. Continue current blood pressure regimen. 5. Vertigo. Continue to monitor. Follow up with neurology. 6. Abdominal pain, possible gastritis. Continue PPI. 7. Hypothyroidism. Continue Synthroid. 8. Cerebrovascular accident. Continue medical management. 9. Aortic stenosis. Status post recent valve replacement. Thank you, Dr. Alvares, for this interesting consult. It will be a pleasure to follow up the patient quirino reddy throughout the hospital course. Dictated By: HARPREET HUI DO NR/NTS Conf#: [id number] DID#: [id number] CC: ALEX CADE MD; LIZZ ALVARES MD;*End*
[2018-09-10 07:23] VITALS: BP 163/73; PULSE 78; RESP 20
[2018-09-10] MEDS: INSULIN ASPART [NOVOLOG] 3 ML PEN SC SCH ×4 (07:41→21:00)
--- NOTE | 2018-09-10 08:08 | PN ---
DATE: 09/10/2018 SUBJECTIVE: The patient is stable. No events overnight. No fevers, chills, nausea, vomiting. OBJECTIVE: VITAL SIGNS: Blood pressure is 148/63, respirations 20, pulse 68, temperature 97.4. HEENT: Head is normocephalic. NECK: Supple. HEART: Regular rate. LUNGS: Show diminished breath sounds at the base. ABDOMEN: Soft, nontender to palpation without rebound or guarding. EXTREMITIES: Negative for clubbing, cyanosis, no edema. DERMATOLOGIC: No rashes. MUSCULOSKELETAL: No joint effusion. NEUROLOGIC: No change in exam. MEDICATIONS: Have been reviewed. LABORATORY DATA: Has been reviewed. IMAGING STUDIES: Have been reviewed. Renal ultrasound was reviewed. ASSESSMENT AND PLAN: 1. Nonoliguric acute kidney injury on top of chronic kidney disease with unknown baseline creatinine . Etiology of acute kidney injury is secondary to hemodynamics. The patient's renal function has im proved in the last 24 hours. Renal ultrasound was reviewed, no evidence of obstruction. Urinalysis shows no significant proteinuria. Recommendation at this point is to continue current treatment plan . Continue supportive care, renally dose all meds. Continue SALMA inhibitor. 2. Anemia. Monitor hemoglobin and hematocrit levels. 3. Mineral bone disorder. Monitor calcium and phosphorus levels. Follow up vitamin D, PTH level. 4. Hypertension. Continue blood pressure regimen. 5. Abdominal pain, gastritis. Continue proton pump inhibitor. 6. Hypothyroidism. Continue Synthroid. 7. History of CVA. Continue medical management. 8. Aortic stenosis, status post recent valve replacement. Continue to monitor. Dictated By: HARPREET HUI DO NR/NTS Conf#: [id number] DID#: [id number] CC: ALEX CADE MD;*EndCC*
[2018-09-10] MEDS: SUCRALFATE (100 MG/ML) 10ML CUP PO SCH ×4 (08:28→20:32)
[2018-09-10] MEDS: CHOLECALCIFEROL 1,000 UNIT TAB PO SCH (08:28)
[2018-09-10] MEDS: SENNA TAB PO SCH (08:28)
[2018-09-10] MEDS: DOCUSATE SODIUM 100 MG CAP PO SCH (08:29)
[2018-09-10] MEDS: ASPIRIN 81 MG TAB PO SCH (08:29)
[2018-09-10] MEDS: HYDROCORTISONE 25 MG SUPP PR SCH ×2 (08:29→20:32)
[2018-09-10] MEDS: SERTRALINE 50 MG TAB PO SCH (08:30)
[2018-09-10] MEDS: LISINOPRIL 20 MG TAB PO SCH (08:30)
[2018-09-10] MEDS: NIFEdipine (XL) 30 MG TAB PO SCH (08:30)
[2018-09-10] MEDS: BUDESONIDE (NEB) 0.5MG/2ML AMP HHN SCH ×2 (09:18→21:21)
--- NOTE | 2018-09-10 10:45 | PN ---
Date/Time of Note Date/Time of Note DATE: 09/10/18 TIME: 10:32 Assessment/Plan VTE Prophylaxis Risk score (from Ns)>0 risk: 5 SCD applied (from Ns): Yes Pharmacological prophylaxis: NA/contraindicated Pharm contraindication: low risk/ambulating Lines/Catheters IV Catheter Type (from Nrsg): Saline Lock Urinary Cath still in place: No Assessment/Plan Assessment/Plan 1. 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 neurology recs apprecated, states chronic 2. Chronic abdominal pain - tolerating PO intake - GI consultation appreciated. Will continue on PPI and Carafate 3. Small pericardial effusion - stable and typical of postoperative changes - CT surgery input appreciated and no acute intervention needed 4. Hypertension - continue on lisinopril and Cardura - will adjust as needed 5. Hypothyroidism - TSH very elevated at time of admission - will continue with 100mcg for now and will need to follow up as outpatient for repeat TSH 6. Recent CVA, prior to hospitalization - confusion chronic - Neuro input appreciated - daughter requesting ARU evaluation and if not approved would like [facility] 7. Aortic stenosis s/p valve replacement - ECHO per cardiology - Cardiology consultation appreciated 8. NIA resolved - Nephrology consultation appreciated - avoid nephrotoxic agents - encouraged PO hydration 9. Cirrhosis - Incidentally found on CT of the abdomen pelvis - Explained to daughter the need for close monitoring 10. Constipation in setting of hemorrhoids - continue bowel regime - suppositories BID for hemorrhoids 11. Disposition - Patient accepted to ARU pending insurance approval. CM aware of SNFs daughter would like pt to go to if not accepted to ARU - If BP remains stable and no further chest discomfort, will downgrade to Med/Surg Result Diagram: 09/10/18 0551 09/10/18 0551 Results 24hrs Laboratory Tests Test 09/09/18 11:47 09/09/18 12:30 09/09/18 17:00 09/09/18 18:53 Bedside Glucose 111 114 Urine Random Creatinine 101.28 Urine Random Sodium 43 Urine Total Protein 23.0 H Troponin I < 0.012 Test 09/09/18 21:03 09/10/18 05:51 09/10/18 07:40 Bedside Glucose 163 99 White Blood Count 8.2 Red Blood Count 3.23 L Hemoglobin 10.3 L Hematocrit 32.8 L Mean Corpuscular Volume 101.5 H Mean Corpuscular 31.9 Hemoglobin Mean Corpuscular 31.4 L Hemoglobin Concent Red Cell Distribution 13.3 Width Platelet Count 180 Mean Platelet Volume 9.9 Immature Granulocytes % 0.500 H Neutrophils % 58.7 Lymphocytes % 24.5 Monocytes % 8.5 Eosinophils % 7.1 H Basophils % 0.7 Nucleated Red Blood 0.0 Cells % Immature Granulocytes # 0.040 H Neutrophils # 4.8 Lymphocytes # 2.0 Monocytes # 0.7 Eosinophils # 0.6 H Basophils # 0.1 Nucleated Red Blood 0.0 Cells # Sodium Level 144 Potassium Level 3.6 Chloride Level 110 Carbon Dioxide Level 27 Anion Gap 7 Blood Urea Nitrogen 24 H Creatinine 0.96 Est Glomerular Filtrat Rate mL/min Glucose Level 101 Calcium Level 8.9 Phosphorus Level 3.0 Magnesium Level 2.0 Subjective 24 Hr Interval Summary Free Text/Dictation Patient remains confused and still complaining of abdominal discomfort and na usea that is chronic. Daughter at bedside. Had BM this am but still hard. Exam/Review of Systems Exam Vitals Vital Signs Date Temp Pulse Resp B/P (MAP) Pulse Ox O2 O2 Flow FiO2 Time Delivery Rate 09/10/18 3 17 94 21 09:18 09/10/18 98.0 163/73 07:23 (103) 09/10/18 2.0 02:57 09/09/18 Nasal 20:03 Cannula Intake and Output 09/09/18 09/09/18 09/10/18 1515:00 23:00 07:00 IntakeIntake Total 200 ml 520 ml OutputOutput Total 300 ml BalanceBalance 200 ml 520 ml -300 ml Exam General: Patient is in mild distress secondary to nausea, answering some questions appropriately but remains chronically confused Neck: Supple, nontender, midline Respiratory: Clear to auscultation bilaterally. no wheezing or rhonchi Cardiovascular: S1, S2, regular rate and rhythm, no obvious murmurs Gastrointestinal: soft, mildly-tender to palpation, nondistended, bowel sounds heard. Ext: no edema, cyanosis, or clubbing Skin: No new skin lesions Results Results 24hrs Laboratory Tests Test 09/09/18 11:47 09/09/18 12:30 09/09/18 17:00 09/09/18 18:53 Bedside Glucose 111 114 Urine Random Creatinine 101.28 Urine Random Sodium 43 Urine Total Protein 23.0 H Troponin I < 0.012 Test 09/09/18 21:03 09/10/18 05:51 09/10/18 07:40 Bedside Glucose 163 99 White Blood Count 8.2 Red Blood Count 3.23 L Hemoglobin 10.3 L Hematocrit 32.8 L Mean Corpuscular Volume 101.5 H Mean Corpuscular 31.9 Hemoglobin Mean Corpuscular 31.4 L Hemoglobin Concent Red Cell Distribution 13.3 Width Platelet Count 180 Mean Platelet Volume 9.9 Immature Granulocytes % 0.500 H Neutrophils % 58.7 Lymphocytes % 24.5 Monocytes % 8.5 Eosinophils % 7.1 H Basophils % 0.7 Nucleated Red Blood 0.0 Cells % Immature Granulocytes # 0.040 H Neutrophils # 4.8 Lymphocytes # 2.0 Monocytes # 0.7 Eosinophils # 0.6 H Basophils # 0.1 Nucleated Red Blood 0.0 Cells # Sodium Level 144 Potassium Level 3.6 Chloride Level 110 Carbon Dioxide Level 27 Anion Gap 7 Blood Urea Nitrogen 24 H Creatinine 0.96 Est Glomerular Filtrat Rate mL/min Glucose Level 101 Calcium Level 8.9 Phosphorus Level 3.0 Magnesium Level 2.0 Medications Medication Current Medications Budesonide (Pulmicort (Neb)) 0.5 mg BID HHN Last administered on 09/10/18at 09:18; Admin Dose 0.5 MG; Start 08/31/18 at 21:30 Levalbuterol (Xopenex Neb) 0.63 mg Q4H PRN HHN WHEEZING AND SOB Last administered on 09/01/18at 03:33; Admin Dose 0.63 MG; Start 08/31/18 at 21:30 Lisinopril (Zestril) 20 mg DAILY PO Last administered on 09/10/18at 08:30; Admin Dose 20 MG; Start 09/01/18 at 09:00 Magnesium Hydroxide (Milk Of Mag) 30 ml DAILY PRN PO NEEDED Last administered on 09/07/18at 14:21; Admin Dose 30 ML; Start 08/31/18 at 21:30 Sertraline HCl (Zoloft) 25 mg DAILY PO Last administered on 09/10/18 08:30; Admin Dose 25 MG; Start 09/01/18 at 09:00 IV Flush (NS 3 ml) 3 ml PER PROTOCOL IV ; Start 08/31/18 at 21:30 Aspirin (Aspirin) 81 mg DAILY PO Last administered on 09/10/18 08:29; Admin Dose 81 MG; Start 09/01/18 at 09:00 Acetaminophen (Tylenol Tab) 650 mg Q6H PRN PO .PAIN 1-3 OR TEMP Last administered on 09/02/18 10:26; Admin Dose 650 MG; Start 08/31/18 at 21:30 Docusate Sodium (Colace) 100 mg Q12H PO Last administered on 09/10/18 08:29; Admin Dose 100 MG; Start 08/31/18 at 21:30 Ondansetron HCl (Zofran Inj) 4 mg Q4H PRN IV NAUSEA AND/OR VOMITING Last admin istered on 09/07/18 10:20; Admin Dose 4 MG; Start 08/31/18 at 23:30 Metoclopramide HCl (Reglan) 10 mg Q6 PRN IV NAUSEA AND/OR VOMITING Last administered on 09/03/18 16:18; Admin Dose 10 MG; Start 08/31/18 at 23:30 Hydrocortisone (Anusol-Hc Supp) 25 mg BID [place] Last administered on 09/10/18 08:29; Admin Dose 25 MG; Start 09/01/18 at 09:00 Docusate Sodium (Colace) 100 mg DAILY PRN PO CONSTIPATION; Start 09/01/18 at 01:00 Cholecalciferol (Vitamin D) 1,000 unit DAILY PO Last administered on 09/10/18 08:28; Admin Dose 1,000 UNIT; Start 09/01/18 at 09:00 Meclizine HCl (Antivert) 25 mg TID PRN PO NAUSEA AND/OR VOMITING; Start 09/01/18 at 01:00 Miscellaneous Information 1 ea NOTE XX ; Start 09/01/18 at 02:00 Glucose (Glutose) 15 gm Q15M PRN PO DECREASED GLUCOSE; Start 09/01/18 at 02:00 Glucose (Glutose) 22.5 gm Q15M PRN PO DECREASED GLUCOSE; Start 09/01/18 at 02:00 Dextrose (D50w Syringe) 25 ml Q15M PRN IV DECREASED GLUCOSE; Start 09/01/18 at 02:00 Dextrose (D50w Syringe) 50 ml Q15M PRN IV DECREASED GLUCOSE; Start 09/01/18 at 02:00 Glucagon (Glucagen) 1 mg Q15M PRN IM DECREASED GLUCOSE; Start 09/01/18 at 02:00 Glucose (Glutose) 15 gm Q15M PRN BUCCAL DECREASED GLUCOSE; Start 09/01/18 at 02:00 Levothyroxine Sodium (Synthroid) 100 mcg DAILY@06 PO Last administered on 09/10/18 05:15; Admin Dose 100 MCG; Start 09/01/18 at 06:00 Atorvastatin Calcium (Lipitor) 80 mg HS PO Last administered on 09/09/18 21:00; Admin Dose 80 MG; Start 09/01/18 at 21:00 Sucralfate (Carafate Susp) 1 gm QID PO Last administered on 09/10/18 08:28; Admin Dose 1 GM; Start 09/03/18 at 13:00 Acetaminophen/ Hydrocodone Bitart ([place] (5/325)) 1 tab Q4H PRN PO MODERATE PAIN LEVEL 4-6 Last administered on 09/08/18 05:37; Admin Dose 1 TAB; Start 09/03/18 at 10:00 Scopolamine (Transderm-Scop) 1 patch Q72H TRANSDERM Last administered on 09/09/18 11:51; Admin Dose 1 PATCH; Start 09/03/18 at 11:30 Polyethylene Glycol (Miralax) 17 gm DAILY PRN PO CONSTIPATION Last administered on 09/07/18 20:32; Admin Dose 17 GM; Start 09/04/18 at 12:00 Mirtazapine (Remeron) 15 mg HS PO Last administered on 09/09/18 21:00; Admin Dose 15 MG; Start 09/05/18 at 21:00 Lorazepam (Ativan) 0.5 mg Q8H PRN PO ANXIETY Last administered on 09/06/18 16:24; Admin Dose 0.5 MG; Start 09/06/18 at 15:30 Insulin Aspart (Novolog Insulin Pen) NOVOLOG *MILD* ALGORITHM WITH MEALS BEDTIME SC Last administered on 09/08/18 17:14; Admin Dose 2 UNIT; Start 09/07/18 at 08:00 Bisacodyl (Dulcolax Supp) 10 mg DAILY PRN [place] CONSTIPATION Last administered on 09/07/18at 20:32; Admin Dose 10 MG; Start 09/07/18 at 20:30 Senna (Senokot) 1 tab BID PO Last administered on 09/10/18at 08:28; Admin Dose 1 TAB; Start 09/08/18 at 09:30 Pantoprazole (Protonix Tab) 40 mg DAILY@06 PO Last administered on 09/10/18at 05:15; Admin Dose 40 MG; Start 09/09/18 at 06:00 Clonidine (Catapres) 0.1 mg Q6H PRN PO sbp>160; Start 09/09/18 at 17:30 Nifedipine (Procardia Xl) 30 mg DAILY PO Last administered on 09/10/18at 08:30; Admin Dose 30 MG; Start 09/09/18 at 17:30 DEBORAH AHN MD Sep 10, 2018 10:44
[2018-09-10 11:30] VITALS: BP 114/55; PULSE 78; RESP 20
--- NOTE | 2018-09-10 12:56 | CONS ---
Assessment/Plan Assessment/Plan Hospital Course (Demo Recall) IMPRESSION: 1. Shortness of breath, assess for congestive heart failure.-Echo this admit 09/02 EF 60-65 2. History of aortic valve replacement with a bovine bioprosthetic valve.- proper function by echo 3. Cerebrovascular accident, acute, at time of valve replacement with now ongoing dizziness and weakness, as well as loss of vision per daughter. 4. Hypertension-overall reasonable control 5. Hypothyroidism. 6. Diabetes mellitus. 7. Dyslipidemia. 8. Renal failure-stable 9. anterior mediastinal fluid collection versus loculated pericardial effusion by CT- would likely have been related to recent surgery and no significant pericardial effusion seen by echo so would favor mediastinal fluid collection at this time Recc: -Tele -Contnue asa -Continue acei and now started on CCB with reasonable BP control -continue high dose statin -ongoing neuro eval -Follow volume status closely and creatnine closely with lasix still held Consultation Date/Type/Reason Admit Date/Time Aug 31, 2018 at 19:25 Initial Consult Date 09/01/18 Type of Consult Cardiology Reason for Consultation AVR Requesting Provider: ALEX CADE Date/Time of Note DATE: 09/10/18 TIME: 12:53 Exam/Review of Systems Vital Signs Vitals Vital Signs Date Temp Pulse Resp B/P (MAP) Pulse Ox O2 O2 Flow FiO2 Time Delivery Rate 09/10/18 98.0 78 20 114/55 95 11:30 (74) 09/10/18 21 09:18 09/10/18 2.0 02:57 09/09/18 Nasal 20:03 Cannula Intake and Output 09/09/18 09/09/18 09/10/18 1515:00 23:00 07:00 IntakeIntake Total 200 ml 520 ml OutputOutput Total 300 ml BalanceBalance 200 ml 520 ml -300 ml Exam Exam Review of Systems: CONSTITUTIONAL: No fevers, chills. PULMONARY: No sob CARDIOVASCULAR: No chest pain/palpitations GASTROINTESTINAL: No nausea/vomiting. GENITOURINARY: No hematuria/dysuria. MUSCULOSKELETAL: No myagias/arthalgias. PSYCHIATRIC: The patient denies depression. NEUROLOGIC: No weakness Constitutional: other (sleeping, arousable) Psych: no complaints Head: normocephalic ENMT: mucosa pink and moist Neck: supple, jvd (9 cm water) Respiratory: clear to auscultation Cardiovascular: regular rate and rhythm Gastrointestinal: soft, non-tender Musculoskeletal: muscle weakness (mild generalized) Extremities: edema (none) Neurological: focal weakness Labs Result Diagram: 09/10/18 0551 09/10/18 0551 Results 24hrs Laboratory Tests Test 09/09/18 17:00 09/09/18 18:53 09/09/18 21:03 09/10/18 05:51 Bedside Glucose 114 163 Troponin I < 0.012 White Blood Count 8.2 Red Blood Count 3.23 L Hemoglobin 10.3 L Hematocrit 32.8 L Mean Corpuscular Volume 101.5 H Mean Corpuscular 31.9 Hemoglobin Mean Corpuscular 31.4 L Hemoglobin Concent Red Cell Distribution 13.3 Width Platelet Count 180 Mean Platelet Volume 9.9 Immature Granulocytes % 0.500 H Neutrophils % 58.7 Lymphocytes % 24.5 Monocytes % 8.5 Eosinophils % 7.1 H Basophils % 0.7 Nucleated Red Blood 0.0 Cells % Immature Granulocytes # 0.040 H Neutrophils # 4.8 Lymphocytes # 2.0 Monocytes # 0.7 Eosinophils # 0.6 H Basophils # 0.1 Nucleated Red Blood 0.0 Cells # Sodium Level 144 Potassium Level 3.6 Chloride Level 110 Carbon Dioxide Level 27 Anion Gap 7 Blood Urea Nitrogen 24 H Creatinine 0.96 Est Glomerular Filtrat Rate mL/min Glucose Level 101 Calcium Level 8.9 Phosphorus Level 3.0 Magnesium Level 2.0 Test 09/10/18 07:40 09/10/18 11:23 Bedside Glucose 99 154 Medications Medications Current Medications Budesonide (Pulmicort (Neb)) 0.5 mg BID HHN Last administered on 09/10/18at 09:18; Admin Dose 0.5 MG; Start 08/31/18 at 21:30 Levalbuterol (Xopenex Neb) 0.63 mg Q4H PRN HHN WHEEZING AND SOB Last administered on 09/01/18at 03:33; Admin Dose 0.63 MG; Start 08/31/18 at 21:30 Lisinopril (Zestril) 20 mg DAILY PO Last administered on 09/10/18at 08:30; Admin Dose 20 MG; Start 09/01/18 at 09:00 Sertraline HCl (Zoloft) 25 mg DAILY PO Last administered on 09/10/18 08:30; Admin Dose 25 MG; Start 09/01/18 at 09:00 IV Flush (NS 3 ml) 3 ml PER PROTOCOL IV ; Start 08/31/18 at 21:30 Aspirin (Aspirin) 81 mg DAILY PO Last administered on 09/10/18 08:29; Admin Dose 81 MG; Start 09/01/18 at 09:00 Acetaminophen (Tylenol Tab) 650 mg Q6H PRN PO .PAIN 1-3 OR TEMP Last administered on 09/02/18 10:26; Admin Dose 650 MG; Start 08/31/18 at 21:30 Ondansetron HCl (Zofran Inj) 4 mg Q4H PRN IV NAUSEA AND/OR VOMITING Last administered on 09/07/18 10:20; Admin Dose 4 MG; Start 08/31/18 at 23:30 Metoclopramide HCl (Reglan) 10 mg Q6 PRN IV NAUSEA AND/OR VOMITING Last administered on 09/03/18 16:18; Admin Dose 10 MG; Start 08/31/18 at 23:30 Hydrocortisone (Anusol-Hc Supp) 25 mg BID [place] Last administered on 09/10/18 08:29; Admin Dose 25 MG; Start 09/01/18 at 09:00 Docusate Sodium (Colace) 100 mg DAILY PRN PO CONSTIPATION; Start 09/01/18 at 01:00 Cholecalciferol (Vitamin D) 1,000 unit DAILY PO Last administered on 09/10/18 08:28; Admin Dose 1,000 UNIT; Start 09/01/18 at 09:00 Meclizine HCl (Antivert) 25 mg TID PRN PO NAUSEA AND/OR VOMITING; Start 09/01/18 at 01:00 Miscellaneous Information 1 ea NOTE XX ; Start 09/01/18 at 02:00 Glucose (Glutose) 15 gm Q15M PRN PO DECREASED GLUCOSE; Start 09/01/18 at 02:00 Glucose (Glutose) 22.5 gm Q15M PRN PO DECREASED GLUCOSE; Start 09/01/18 at 02:00 Dextrose (D50w Syringe) 25 ml Q15M PRN IV DECREASED GLUCOSE; Start 09/01/18 at 02:00 Dextrose (D50w Syringe) 50 ml Q15M PRN IV DECREASED GLUCOSE; Start 09/01/18 at 02:00 Glucagon (Glucagen) 1 mg Q15M PRN IM DECREASED GLUCOSE; Start 09/01/18 at 02:00 Glucose (Glutose) 15 gm Q15M PRN BUCCAL DECREASED GLUCOSE; Start 09/01/18 at 02:00 Levothyroxine Sodium (Synthroid) 100 mcg DAILY@06 PO Last administered on 09/10/18 05:15; Admin Dose 100 MCG; Start 09/01/18 at 06:00 Atorvastatin Calcium (Lipitor) 80 mg HS PO Last administered on 09/09/18 21:00; Admin Dose 80 MG; Start 09/01/18 at 21:00 Sucralfate (Carafate Susp) 1 gm QID PO Last administered on 09/10/18 12:23; Admin Dose 1 GM; Start 09/03/18 at 13:00 Acetaminophen/ Hydrocodone Bitart ([place] (5/325)) 1 tab Q4H PRN PO MODERATE PAIN LEVEL 4-6 Last administered on 09/08/18 05:37; Admin Dose 1 TAB; Start 09/03/18 at 10:00 Scopolamine (Transderm-Scop) 1 patch Q72H TRANSDERM Last administered on 09/09/18 11:51; Admin Dose 1 PATCH; Start 09/03/18 at 11:30 Mirtazapine (Remeron) 15 mg HS PO Last administered on 09/09/18 21:00; Admin Dose 15 MG; Start 09/05/18 at 21:00 Lorazepam (Ativan) 0.5 mg Q8H PRN PO ANXIETY Last administered on 09/06/18 16:24; Admin Dose 0.5 MG; Start 09/06/18 at 15:30 Insulin Aspart (Novolog Insulin Pen) NOVOLOG *MILD* ALGORITHM WITH MEALS BEDTI ME SC Last administered on 09/10/18 11:29; Admin Dose 1 UNIT; Start 09/07/18 at 08:00 Bisacodyl (Dulcolax Supp) 10 mg DAILY PRN [place] CONSTIPATION Last administered on 09/07/18 20:32; Admin Dose 10 MG; Start 09/07/18 at 20:30 Pantoprazole (Protonix Tab) 40 mg DAILY@06 PO Last administered on 09/10/18 05:15; Admin Dose 40 MG; Start 09/09/18 at 06:00 Clonidine (Catapres) 0.1 mg Q6H PRN PO sbp>160; Start 09/09/18 at 17:30 Nifedipine (Procardia Xl) 30 mg DAILY PO Last administered on 09/10/18at 08:30; A dmin Dose 30 MG; Start 09/09/18 at 17:30 Polyethylene Glycol (Miralax) 17 gm DAILY PO ; Start 09/11/18 at 09:00 Senna/Docusate Sodium (Senokot-S) 1 tab BID PO ; Start 09/10/18 at 21:00 TIANA PENA Sep 10, 2018 12:56
[2018-09-10 15:20] VITALS: BP 137/63; PULSE 62; RESP 20
[2018-09-10] MEDS: LORAZEPAM 0.5 MG TAB PO PRN (18:38)
[2018-09-10] MEDS: MIRTAZAPINE 15 MG TAB PO SCH (20:32)
[2018-09-10] MEDS: ATORVASTATIN 80 MG TAB PO SCH (20:32)
[2018-09-10] MEDS: SENNA/DOCUSATE NA (8.6MG/50MG) TAB PO SCH (20:32)
[2018-09-11 00:04] VITALS: BP 157/70; PULSE 66; RESP 18
[2018-09-11 04:13] VITALS: BP 134/68; PULSE 70; RESP 18
[2018-09-11] MEDS: PANTOPRAZOLE (EC) 40 MG TAB PO SCH (06:13)
[2018-09-11] MEDS: LEVOTHYROXINE 100 MCG TAB PO SCH (06:13)
[2018-09-11 08:00] VITALS: BP 155/76; PULSE 78; RESP 18
[2018-09-11] MEDS: INSULIN ASPART [NOVOLOG] 3 ML PEN SC SCH ×3 (08:00→17:00)
[2018-09-11] MEDS: ASPIRIN 81 MG TAB PO SCH (08:39)
[2018-09-11] MEDS: SERTRALINE 50 MG TAB PO SCH (08:39)
[2018-09-11] MEDS: CHOLECALCIFEROL 1,000 UNIT TAB PO SCH (08:39)
[2018-09-11] MEDS: SENNA/DOCUSATE NA (8.6MG/50MG) TAB PO SCH (08:39)
[2018-09-11] MEDS: HYDROCORTISONE 25 MG SUPP PR SCH (08:40)
[2018-09-11] MEDS: SUCRALFATE (100 MG/ML) 10ML CUP PO SCH ×3 (08:40→16:59)
[2018-09-11] MEDS: LISINOPRIL 20 MG TAB PO SCH (08:40)
[2018-09-11] MEDS ORDERED: POLYETHYLENE GLYCOL 17 GM PACKET PO SCH (09:00)
--- NOTE | 2018-09-11 09:24 | PN ---
DATE: 09/11/2018 GENERAL: The patient is stable. No events overnight. VITAL SIGNS: Blood pressure 155/76, pulse 78, respirations 19, temperature 98.0. HEENT: Head is normocephalic. NECK: Supple. HEART: Regular rate. LUNGS: Show diminished breath sounds at the base. ABDOMEN: Soft, nontender to palpation without rebound or guarding. EXTREMITIES: Negative for clubbing, cyanosis, no edema. DERMATOLOGIC: No rashes. MUSCULOSKELETAL: No joint effusion. NEUROLOGIC: No change in exam. MEDICATIONS: Reviewed. LABORATORY DATA: Has been reviewed. ASSESSMENT AND PLAN: 1. Nonoliguric acute kidney injury on top of chronic kidney disease with unknown baseline creatinine . Etiology of acute kidney injury is secondary to hemodynamics. Renal function is improved. Contin ue current treatment plan, supportive care, renally dose all meds. 2. Anemia. Continue to monitor hemoglobin and hematocrit levels. 3. Mineral bone disorder. Monitor calcium and phosphorus levels. 4. Hypertension. Continue current blood pressure regimen. 5. Gastritis, continue PPI. 6. Hypothyroidism. Continue Synthroid. 7. . 8. Aortic stenosis, status post valve replacement. Dictated By: HARPREET HUI DO NR/NTS Conf#: [id number] DID#: [id number] CC: ALEX CADE MD;*EndCC*
[2018-09-11] MEDS: BUDESONIDE (NEB) 0.5MG/2ML AMP HHN SCH (09:46)
[2018-09-11] MEDS: NIFEdipine (XL) 30 MG TAB PO SCH (10:32)
--- NOTE | 2018-09-11 11:54 | CONS ---
Consult Date/Type/Reason Admit Date/Time Aug 31, 2018 at 19:25 Initial Consult Date Requesting Provider: ALEX CADE Date/Time of Note DATE: 09/11/18 TIME: 11:52 Subjective Better now - in good fluid status - denies CP now. ROS: No fever, no chills, no nausea, no vomiting, no diarrhea/constipation mild SOB No recent weight changes No chest pain, no PND, no orthopnea No dizziness, blurred vision No thirst, no heat or cold intolerance Objective Vitals Vital Signs Date Temp Pulse Resp B/P (MAP) Pulse Ox O2 O2 Flow FiO2 Time Delivery Rate 09/11/18 98.0 78 18 155/76 98 08:00 (102) 09/11/18 2.0 02:16 09/10/18 Nasal 28 21:20 Cannula Intake and Output 09/10/18 09/10/18 09/11/18 1515:00 23:00 07:00 IntakeIntake Total 650 ml BalanceBalance 650 ml Exam General: WN/WD/NAD, AOx 1-2 HEENT: Unicetric/atraumatic/EOMI (follow commands) NECK: JVD elevated, no thyromegaly Lymph: no lymphadenopathy HEART: regular with no S3, II/ systolic murmur at apex, PMI L LUNGS: Coarse sounds ABD: soft, NT, ND, +BS : Intact Neuro: non focal SKIN: chronic changes EXT: trace edema Results/Medications Result Diagram: 09/10/18 0551 09/10/18 0551 Results 24 hrs Laboratory Tests Test 09/10/18 16:54 09/10/18 20:35 09/11/18 07:47 Bedside Glucose 86 124 85 Home Meds Reported Medications Furosemide* (Furosemide*) 20 Mg Tablet, 10 MG PO DAILY, #60 TAB 09/03/18 Lisinopril* (Lisinopril*) 20 Mg Tablet, 20 MG PO DAILY, #30 TAB HOLD IF SBP<110 08/31/18 Budesonide* (Budesonide*) 0.5 Mg/2 Ml Ampul.neb, 0.5 MG INHALATION BID, AMP 08/31/18 Cephalexin* (Cephalexin*) 500 Mg Capsule, 500 MG PO Q8, #21 CAP FOR 7 DAYS,STOP DATE 09/01/18 08/31/18 Sertraline Hcl* (Zoloft*) 25 Mg Tablet, 25 MG PO DAILY, #30 TAB 08/31/18 Acetaminophen* (Acetaminophen*) 500 MG Extra Strength Tablet, 500 MG PO Q4H PRN for MILD PAIN(1-3)OR ELEVATED TEMP, TAB 08/31/18 Acetaminophen* (Acetaminophen*) 325 Mg Tablet, 650 MG PO Q4H PRN for PAIN LEVEL 4-6/10, #30 TAB AND FEVER>100F 08/31/18 Sodium Phosphate,[place]-Dibasic (Enema Ready To Use) 133 Ml Enema, 133 ML RC Q2D, ENEMA 08/31/18 Bisacodyl (Dulcolax) 10 Mg Supp.rect, 10 MG RC DAILY, SUPP.RECT 08/31/18 Magnesium Hydroxide* (Milk Of Magnesia*) 400 Mg/5 Ml Oral.susp, 30 ML PO DAILY PRN for NEEDED, ML 08/31/18 Levalbuterol Hcl* (Levalbuterol Hcl*) 0.63 Mg/3 Ml Vial.neb, 0.63 MG INHALATION Q4H PRN for WHEEZING AND SOB, VIAL 08/31/18 Oxycodone Hcl* (IR) (Oxycodone Hcl*) 5 Mg Capsule, 5 MG PO Q6H PRN for PAIN LEVEL 7-10/10, CAP 08/31/18 Insulin Lispro (Humalog) 100 Unit/1 Ml Cartridge, 0 SQ SLIDING SCALE, EA IF BS 0-150=0 UNIT, 151-200=2 UNITS,201-250=4 UNITS, 251-300=6 UNITS, 301-350=8 UNITS, 351-400=10 UNITS ABOVE 400=12 UNITS AND CALL 08/31/18 Medications Current Medications Budesonide (Pulmicort (Neb)) 0.5 mg BID HHN Last administered on 09/11/18at 09:46; Admin Dose 0.5 MG; Start 08/31/18 at 21:30 Levalbuterol (Xopenex Neb) 0.63 mg Q4H PRN HHN WHEEZING AND SOB Last administered on 09/01/18at 03:33; Admin Dose 0.63 MG; Start 08/31/18 at 21:30 Lisinopril (Zestril) 20 mg DAILY PO Last administered on 09/11/18at 08:40; Admin Dose 20 MG; Start 09/01/18 at 09:00 Sertraline HCl (Zoloft) 25 mg DAILY PO Last administered on 09/11/18 08:39; Admin Dose 25 MG; Start 09/01/18 at 09:00 IV Flush (NS 3 ml) 3 ml PER PROTOCOL IV ; Start 08/31/18 at 21:30 Aspirin (Aspirin) 81 mg DAILY PO Last administered on 09/11/18 08:39; Admin Dose 81 MG; Start 09/01/18 at 09:00 Acetaminophen (Tylenol Tab) 650 mg Q6H PRN PO .PAIN 1-3 OR TEMP Last administered on 09/02/18 10:26; Admin Dose 650 MG; Start 08/31/18 at 21:30 Ondansetron HCl (Zofran Inj) 4 mg Q4H PRN IV NAUSEA AND/OR VOMITING Last administered on 09/07/18 10:20; Admin Dose 4 MG; Start 08/31/18 at 23:30 Metoclopramide HCl (Reglan) 10 mg Q6 PRN IV NAUSEA AND/OR VOMITING Last administered on 09/03/18 16:18; Admin Dose 10 MG; Start 08/31/18 at 23:30 Hydrocortisone (Anusol-Hc Supp) 25 mg BID [place] Last administered on 09/11/18 08:40; Admin Dose 25 MG; Start 09/01/18 at 09:00 Docusate Sodium (Colace) 100 mg DAILY PRN PO CONSTIPATION; Start 09/01/18 at 01:00 Cholecalciferol (Vitamin D) 1,000 unit DAILY PO Last administered on 09/11/18 08:39; Admin Dose 1,000 UNIT; Start 09/01/18 at 09:00 Meclizine HCl (Antivert) 25 mg TID PRN PO NAUSEA AND/OR VOMITING; Start 09/01/18 at 01:00 Miscellaneous Information 1 ea NOTE XX ; Start 09/01/18 at 02:00 Glucose (Glutose) 15 gm Q15M PRN PO DECREASED GLUCOSE; Start 09/01/18 at 02:00 Glucose (Glutose) 22.5 gm Q15M PRN PO DECREASED GLUCOSE; Start 09/01/18 at 02:00 Dextrose (D50w Syringe) 25 ml Q15M PRN IV DECREASED GLUCOSE; Start 09/01/18 at 02:00 Dextrose (D50w Syringe) 50 ml Q15M PRN IV DECREASED GLUCOSE; Start 09/01/18 at 02:00 Glucagon (Glucagen) 1 mg Q15M PRN IM DECREASED GLUCOSE; Start 09/01/18 at 02:00 Glucose (Glutose) 15 gm Q15M PRN BUCCAL DECREASED GLUCOSE; Start 09/01/18 at 02:00 Levothyroxine Sodium (Synthroid) 100 mcg DAILY@06 PO Last administered on 09/11/18 06:13; Admin Dose 100 MCG; Start 09/01/18 at 06:00 Atorvastatin Calcium (Lipitor) 80 mg HS PO Last administered on 09/10/18 20:32; Admin Dose 80 MG; Start 09/01/18 at 21:00 Sucralfate (Carafate Susp) 1 gm QID PO Last administered on 09/11/18 08:40; Admin Dose 1 GM; Start 09/03/18 at 13:00 Acetaminophen/ Hydrocodone Bitart ([place] (5/325)) 1 tab Q4H PRN PO MODERATE PAIN LEVEL 4-6 Last administered on 09/08/18 05:37; Admin Dose 1 TAB; Start 09/03/18 at 10:00 Scopolamine (Transderm-Scop) 1 patch Q72H TRANSDERM Last administered on 09/09/18 11:51; Admin Dose 1 PATCH; Start 09/03/18 at 11:30 Mirtazapine (Remeron) 15 mg HS PO Last administered on 09/10/18 20:32; Admin Dose 15 MG; Start 09/05/18 at 21:00 Lorazepam (Ativan) 0.5 mg Q8H PRN PO ANXIETY Last administered on 09/10/18 18:38; Admin Dose 0.5 MG; Start 09/06/18 at 15:30 Insulin Aspart (Novolog Insulin Pen) NOVOLOG *MILD* ALGORITHM WITH MEALS BEDTIME SC Last administered on 09/10/18 11:29; Admin Dose 1 UNIT; Start 09/07/18 at 08:00 Bisacodyl (Dulcolax Supp) 10 mg DAILY PRN [place] CONSTIPATION Last administered on 09/07/18 20:32; Admin Dose 10 MG; Start 8/2/19 at 20:30 Pantoprazole (Protonix Tab) 40 mg DAILY@06 PO Last administered on 09/11/18at 06:13; Admin Dose 40 MG; Start 09/09/18 at 06:00 Clonidine (Catapres) 0.1 mg Q6H PRN PO sbp>160; Start 09/09/18 at 17:30 Nifedipine (Procardia Xl) 30 mg DAILY PO Last administered on 09/11/18at 10:32; Admin Dose 30 MG; Start 09/09/18 at 17:30 Polyethylene Glycol (Miralax) 17 gm DAILY PO Last administered on 09/11/18at 08:39; Admin Dose 17 GM; Start 09/11/18 at 09:00 Senna/Docusate Sodium (Senokot-S) 1 tab BID PO Last administered on 09/11/18at 08:39; Admin Dose 1 TAB; Start 09/10/18 at 21:00 Assessment/Plan Hospital Course (Demo Recall) 1. Shortness of breath, assess for congestive heart failure.-Echo tis admit 09/02 EF 60-65 - better now, con't to keep euvolemic. Improved with Rx. 2. History of aortic valve replacement with a bovine bioprosthetic valve.- proper function by echo - stable by exam Stable by exam. 3. Cerebrovascular accident, acute, at time of valve replacement with now ongoing dizziness and weakness, as well as loss of vision per daughter - now more amulatory -neuro follows 4. Hypertension, borderline - con't med rx 5. Hypothyroidism. 6. Diabetes mellitus- on meds, will keep euglycemic - con't to keep euvolemic. 7. Dyslipidemia. 8. Renal failure-improving - cr 0.96 now LUIS E SWAN MD Sep 11, 2018 11:54
[2018-09-11 12:10] VITALS: BP 142/59; PULSE 72; RESP 18
--- NOTE | 2018-09-11 14:50 | PN ---
Date/Time of Note Date/Time of Note DATE: 09/11/18 TIME: 14:49 Assessment/Plan VTE Prophylaxis Risk score (from Nsg)>0 risk: 3 SCD applied (from Nsg): Yes Pharmacological prophylaxis: NA/contraindicated Pharm contraindication: low risk/ambulating Lines/Catheters IV Catheter Type (from Nrsg): Saline Lock Urinary Cath still in place: No Assessment/Plan Assessment/Plan 1. 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 Chronic abdominal pain - tolerating PO intake - GI consultation appreciated. Will continue on PPI and Carafate 3. Small pericardial effusion - stable and typical of postoperative changes - CT surgery input appreciated and no acute intervention needed 4. Hypertension - continue current medications - will adjust as needed 5. Hypothyroidism - TSH very elevated at time of admission - will continue with 100mcg for now and will need to follow up as outpatient for repeat TSH 6. Recent CVA, prior to hospitalization - confusion chronic - Neuro input appreciated - PT recommending 24 hour supervision/ARU/SNF placement 7. Aortic stenosis s/p valve replacement - ECHO per cardiology - Cardiology consultation appreciated 8. NIA resolved - Nephrology consultation appreciated - avoid nephrotoxic agents - encouraged PO hydration 9. Cirrhosis - Incidentally found on CT of the abdomen pelvis - Explained to daughter the need for close monitoring 10. Constipation in setting of hemorrhoids - continue bowel regime - suppositories BID for hemorrhoids 11. Disposition - Per daughter, patient was not properly cared for at previous [facility]. She was left in her bed during meals with no assistance rather than taken to the common area. Daughter saw a decline in her overall activity at SNF and concerned for her mothers safety and well being. Discussed ARU did not accept patient due to insurance and advised she call insurance to discuss locations for placement Result Diagram: 09/10/18 0551 09/10/18 0551 Results 24hrs Laboratory Tests Test 09/10/18 16:54 09/10/18 20:35 09/11/18 07:47 09/11/18 11:54 Bedside Glucose 86 124 85 150 Subjective 24 Hr Interval Summary Free Text/Dictation Patient still complaining of chronic back pain but denies any new issues. Per daughter, appetite has improved. Exam/Review of Systems Exam Vitals Vital Signs Date Temp Pulse Resp B/P (MAP) Pulse Ox O2 O2 Flow FiO2 Time Delivery Rate 09/11/18 98.0 72 18 142/59 98 12:10 (86) 09/11/18 2.0 02:16 09/10/18 Nasal 28 21:20 Cannula Intake and Output 09/10/18 09/10/18 09/11/18 1515:00 23:00 07:00 IntakeIntake Total 650 ml BalanceBalance 650 ml Exam General: no acute distress. noted ambulating around halls with PT Neck: Supple, nontender, midline Respiratory: Clear to auscultation bilaterally. no wheezing or rhonchi Cardiovascular: S1, S2, regular rate and rhythm, no obvious murmurs Gastrointestinal: soft, nontender to palpation, nondistended, bowel sounds heard. Ext: no edema, cyanosis, or clubbing Skin: No new skin lesions Results Results 24hrs Laboratory Tests Test 09/10/18 16:54 09/10/18 20:35 09/11/18 07:47 09/11/18 11:54 Bedside Glucose 86 124 85 150 Medications Medication Current Medications Budesonide (Pulmicort (Neb)) 0.5 mg BID HHN Last administered on 09/11/18at 09:46; Admin Dose 0.5 MG; Start 08/31/18 at 21:30 Levalbuterol (Xopenex Neb) 0.63 mg Q4H PRN HHN WHEEZING AND SOB Last administered on 09/01/18at 03:33; Admin Dose 0.63 MG; Start 08/31/18 at 21:30 Lisinopril (Zestril) 20 mg DAILY PO Last administered on 09/11/18at 08:40; Admin Dose 20 MG; Start 09/01/18 at 09:00 Sertraline HCl (Zoloft) 25 mg DAILY PO Last administered on 09/11/18at 08:39; Admin Dose 25 MG; Start 09/01/18 at 09:00 IV Flush (NS 3 ml) 3 ml PER PROTOCOL IV ; Start 08/31/18 at 21:30 Aspirin (Aspirin) 81 mg DAILY PO Last administered on 09/11/18 08:39; Admin Dose 81 MG; Start 09/01/18 at 09:00 Acetaminophen (Tylenol Tab) 650 mg Q6H PRN PO .PAIN 1-3 OR TEMP Last administered on 09/02/18 10:26; Admin Dose 650 MG; Start 08/31/18 at 21:30 Ondansetron HCl (Zofran Inj) 4 mg Q4H PRN IV NAUSEA AND/OR VOMITING Last administered on 09/07/18 10:20; Admin Dose 4 MG; Start 08/31/18 at 23:30 Metoclopramide HCl (Reglan) 10 mg Q6 PRN IV NAUSEA AND/OR VOMITING Last administered on 09/03/18 16:18; Admin Dose 10 MG; Start 08/31/18 at 23:30 Hydrocortisone (Anusol-Hc Supp) 25 mg BID [place] Last administered on 09/11/18 08:40; Admin Dose 25 MG; Start 09/01/18 at 09:00 Docusate Sodium (Colace) 100 mg DAILY PRN PO CONSTIPATION; Start 09/01/18 at 01:00 Cholecalciferol (Vitamin D) 1,000 unit DAILY PO Last administered on 09/11/18 08:39; Admin Dose 1,000 UNIT; Start 09/01/18 at 09:00 Meclizine HCl (Antivert) 25 mg TID PRN PO NAUSEA AND/OR VOMITING; Start 09/01/18 at 01:00 Miscellaneous Information 1 ea NOTE XX ; Start 09/01/18 at 02:00 Glucose (Glutose) 15 gm Q15M PRN PO DECREASED GLUCOSE; Start 09/01/18 at 02:00 Glucose (Glutose) 22.5 gm Q15M PRN PO DECREASED GLUCOSE; Start 09/01/18 at 02:00 Dextrose (D50w Syringe) 25 ml Q15M PRN IV DECREASED GLUCOSE; Start 09/01/18 at 02:00 Dextrose (D50w Syringe) 50 ml Q15M PRN IV DECREASED GLUCOSE; Start 09/01/18 at 02:00 Glucagon (Glucagen) 1 mg Q15M PRN IM DECREASED GLUCOSE; Start 09/01/18 at 02:00 Glucose (Glutose) 15 gm Q15M PRN BUCCAL DECREASED GLUCOSE; Start 09/01/18 at 02:00 Levothyroxine Sodium (Synthroid) 100 mcg DAILY@06 PO Last administered on 09/11/18 06:13; Admin Dose 100 MCG; Start 09/01/18 at 06:00 Atorvastatin Calcium (Lipitor) 80 mg HS PO Last administered on 09/10/18 20:32; Admin Dose 80 MG; Start 09/01/18 at 21:00 Sucralfate (Carafate Susp) 1 gm QID PO Last administered on 09/11/18 12:06; Admin Dose 1 GM; Start 09/03/18 at 13:00 Acetaminophen/ Hydrocodone Bitart ([place] (5/325)) 1 tab Q4H PRN PO MODERATE PAIN LEVEL 4-6 Last administered on 09/08/18 05:37; Admin Dose 1 TAB; Start 09/03/18 at 10:00 Scopolamine (Transderm-Scop) 1 patch Q72H TRANSDERM Last administered on 09/09/18 11:51; Admin Dose 1 PATCH; Start 09/03/18 at 11:30 Mirtazapine (Remeron) 15 mg HS PO Last administered on 09/10/18 20:32; Admin Dose 15 MG; Start 09/05/18 at 21:00 Lorazepam (Ativan) 0.5 mg Q8H PRN PO ANXIETY Last administered on 09/10/18 18:38; Admin Dose 0.5 MG; Start 09/06/18 at 15:30 Insulin Aspart (Novolog Insulin Pen) NOVOLOG *MILD* ALGORITHM WITH MEALS BEDTIME SC Last administered on 09/11/18 11:59; Admin Dose 1 UNIT; Start 09/07/18 at 08:00 Bisacodyl (Dulcolax Supp) 10 mg DAILY PRN [place] CONSTIPATION Last administered on 09/07/18 20:32; Admin Dose 10 MG; Start 09/07/18 at 20:30 Pantoprazole (Protonix Tab) 40 mg DAILY@06 PO Last administered on 09/11/18 06:13; Admin Dose 40 MG; Start 09/09/18 at 06:00 Clonidine (Catapres) 0.1 mg Q6H PRN PO sbp>160; Start 09/09/18 at 17:30 Nifedipine (Procardia Xl) 30 mg DAILY PO Last administered on 8/6/19at 10:32; Admin Dose 30 MG; Start 09/09/18 at 17:30 Polyethylene Glycol (Miralax) 17 gm DAILY PO Last administered on 09/11/18 08:39; Admin Dose 17 GM; Start 09/11/18 at 09:00 Senna/Docusate Sodium (Senokot-S) 1 tab BID PO Last administered on 09/11/18 08:39; Admin Dose 1 TAB; Start 09/10/18 at 21:00 DEBORAH AHN MD Sep 11, 2018 14:50
--- NOTE | 2018-09-11 14:59 | RADRPT ---
Vent Rate: 73 bpm RR Interval: 832 msec IN Interval: 166 msec QRS Duration: 90 msec QT Interval: 509 msec QTC Interval: 558 msec P-R-T [place]: 63 - 37 - 39 degrees Sinus rhythm...normal P axis, V-rate 50- 99 Atrial premature complex...SV complex w/ short R-R interval Nonspecific T abnormalities, anterior leads...T <-0.10mV, V2-V4 Prolonged QT interval...QTc >500mS Electronically Signed By: Dhiraj Vargas
--- NOTE | 2018-09-11 15:48 | PDOCDIS ---
Discharge Instructions DIAGNOSIS Discharge Diagnosis 1. Chronic dizziness with nausea, ongoing since CABG- stable 2. Chronic abdominal pain 3. Small pericardial effusion, post surgical changes- stable 4. Hypertension 5. Hypothyroidism 6. Recent CVA, prior to hospitalization 7. Aortic stenosis s/p valve replacement 8. NIA resolved 9. Cirrhosis 10. Constipation in setting of hemorrhoids CONDITION [id number] Patient Condition: [id number] Stable HOME CARE INSTRUCTIONS: [id number] Diet Instructions: [id number] Low Fat /Cholesterol ACTIVITY: [id number] Activity Restrictions: [id number] No Restrictions FOLLOW UP/APPOINTMENTS Follow-up Plan 1. Follow up with your primary care physician in 1-2 weeks 2. You will need a repeat thyroid study performed in 4- 6 weeks to make sure you are on an appropriate dose of levothyroxine 3. Continue bowel regime to prevent constipation given you have hemorrhoids 4. Continue all medications as prescribed for blood pressure control 5. Continue working with physical therapy to improve your balance 6. Follow up with CT surgery as previously scheduled given history of CABG 7. If experiencing any concerning symptoms, please go to your nearest emergency department DEBORAH AHN MD Sep 11, 2018 15:48
[2018-09-11 16:26] VITALS: BP 126/76; PULSE 78; RESP 18
--- NOTE | 2018-09-11 17:16 | DS ---
Date/Time of Note Date/Time of Note DATE: 09/11/18 TIME: 17:03 Discharge Summary Admission/Discharge Info Admit Date/Time Aug 31, 2018 at 19:25 Discharge Date/Time 09/11/18 Discharge Diagnosis 1. Chronic dizziness with nausea, ongoing since CABG- stable 2. Chronic abdominal pain 3. Small pericardial effusion, post surgical changes- stable 4. Hypertension 5. Hypothyroidism 6. Recent CVA, prior to hospitalization 7. Aortic stenosis s/p valve replacement 8. NIA resolved 9. Cirrhosis 10. Constipation in setting of hemorrhoids Patient Condition: Stable Consults Neurology- Dr. Alba CT Surgery- Dr. Walsh Cardiology- Dr. Alvarez GI- Dr. Guerrero Hx of Present Illness Chief complaint: Weak, tired History was obtained from the ED physician as well as from the daughter at the bedside as patient was unable to provide history due to lethargy/clinical condition. This is a 73-year-old female with past medical history of hypertension, diabete s, hyperlipidemia, recent CVA, aortic stenosis status post aortic valve replacement who presented to the ER with symptoms of feeling weak as per the daughter. Patient has been at SNF where she is been for the last 6 weeks after having suffered a CVA at [facility] where she had her aortic valve replaced. Daughter reports that she has been confused since then. Her daughter today who was with her and they were driving and the patient reported that when she opened her eyes she felt dizzy. The daughter took her to an urgent care who then called an ambulance and brought her to [facility]. The patient reported that she feels weak but denied any other symptoms. Denies any chest pain nausea vomiting or diarrhea. She does appear tired. CT imaging studies did not now any acute strokes, but evidence of old infarcts were visible as well as possible stenotic/thrombosed vessels on CTA of the had, please see imaging studies. Allergies: NKDA Medications: See APR Hospital Course Patient was admitted to telemetry for workup of possible stroke given worsening dizziness and history of recent stroke. Neurology was consulted and neuroimaging was performed with findings of "probable punctate recent infarcts in the left centrum semi ovale in the distribution of left IZAIAH- MCA border zone." She was evaluated by physical therapy and recommended continued treatment at SNF. Patient was also noted with NIA and Lisinopril restarted once NIA improved. Patient was complaining of persistent nausea which per daughter was chronic and GI was consulted for recommendations. She was started on PPI/Ca rafate and scopolamine patch with improvement in symptoms. Patient was also evaluated by Cardiology and CT surgery given recent CABG with AVR with no acute issues noted. Medication adjustments were made for better blood pressure control. Patients appetite improved during course of hospitalization as well as energy level. She progressed well with physical therapy. She was noted with constipation and continued on bowel regime. She was also placed on Proctosol since had history of hemorrhoids which were being irritated with constipation. Patients overall clinical status improved and she was cleared for discharge by consultants. CM was consulted for assistance with placement and she was accepted to [facility] of daughters choosing. Patient was discharged in stable condition. Home Meds Reported Medications Furosemide* (Furosemide*) 20 Mg Tablet, 10 MG PO DAILY, #60 TAB 09/03/18 Lisinopril* (Lisinopril*) 20 Mg Tablet, 20 MG PO DAILY, #30 TAB HOLD IF SBP<110 08/31/18 Budesonide* (Budesonide*) 0.5 Mg/2 Ml Ampul.neb, 0.5 MG INHALATION BID, AMP 08/31/18 Cephalexin* (Cephalexin*) 500 Mg Capsule, 500 MG PO Q8, #21 CAP FOR 7 DAYS,STOP DATE 09/01/18 08/31/18 Sertraline Hcl* (Zoloft*) 25 Mg Tablet, 25 MG PO DAILY, #30 TAB 08/31/18 Acetaminophen* (Acetaminophen*) 500 MG Extra Strength Tablet, 500 MG PO Q4H PRN for MILD PAIN(1-3)OR ELEVATED TEMP, TAB 08/31/18 Acetaminophen* (Acetaminophen*) 325 Mg Tablet, 650 MG PO Q4H PRN for PAIN LEVEL 4-6/10, #30 TAB AND FEVER>100F 08/31/18 Sodium Phosphate,[place]-Dibasic (Enema Ready To Use) 133 Ml Enema, 133 ML RC Q2D, ENEMA 08/31/18 Bisacodyl (Dulcolax) 10 Mg Supp.rect, 10 MG RC DAILY, SUPP.RECT 08/31/18 Magnesium Hydroxide* (Milk Of Magnesia*) 400 Mg/5 Ml Oral.susp, 30 ML PO DAILY PRN for NEEDED, ML 08/31/18 Levalbuterol Hcl* (Levalbuterol Hcl*) 0.63 Mg/3 Ml Vial.neb, 0.63 MG INHALATION Q4H PRN for WHEEZING AND SOB, VIAL 08/31/18 Oxycodone Hcl* (IR) (Oxycodone Hcl*) 5 Mg Capsule, 5 MG PO Q6H PRN for PAIN LEVEL 7-10/10, CAP 08/31/18 Insulin Lispro (Humalog) 100 Unit/1 Ml Cartridge, 0 SQ SLIDING SCALE, EA IF BS 0-150=0 UNIT, 151-200=2 UNITS,201-250=4 UNITS, 251-300=6 UNITS, 301-350=8 UNITS, 351-400=10 UNITS ABOVE 400=12 UNITS AND CALL 08/31/18 Follow-up Plan 1. Follow up with your primary care physician in 1-2 weeks 2. You will need a repeat thyroid study performed in 4- 6 weeks to make sure you are on an appropriate dose of levothyroxine 3. Continue bowel regime to prevent constipation given you have hemorrhoids 4. Continue all medications as prescribed for blood pressure control 5. Continue working with physical therapy to improve your balance 6. Follow up with CT surgery as previously scheduled given history of CABG 7. If experiencing any concerning symptoms, please go to your nearest emergency department Primary Care Provider Care Physician No Primary Time spent on discharge: > 30 minutes Pending Labs Laboratory Tests Test 09/10/18 20:35 09/11/18 07:47 09/11/18 11:54 09/11/18 16:58 Bedside 124 85 150 137 Glucose mg/dL (70-220) mg/dL (70-220) mg/dL (70-220) mg/dL (70-220) DEBORAH AHN MD Sep 11, 2018 17:16
== END 2018-09-11 18:55 | DRG 149 ==
LOC: E/R 14:40 → 6WM 19:25
PROVIDERS: ADMIT Family Medicine; ATTEND Internal Medicine
DX: R42 Dizziness and giddiness (principal); N17.9 Acute kidney failure, unspecified; I31.3 Pericardial effusion (noninflammatory); I66.03 Occlusion and stenosis of bilateral middle cerebral arteries; E11.8 Type 2 diabetes mellitus with unspecified complications; E86.0 Dehydration; I35.0 Nonrheumatic aortic (valve) stenosis; E78.5 Hyperlipidemia, unspecified; I10 Essential (primary) hypertension; E03.9 Hypothyroidism, unspecified; K74.60 Unspecified cirrhosis of liver; Z86.73 Personal history of transient ischemic attack (TIA), and cerebral infarction without residual deficits; J44.9 Chronic obstructive pulmonary disease, unspecified; G93.89 Other specified disorders of brain; R51 Headache; Z95.3 Presence of xenogenic heart valve; Z95.1 Presence of aortocoronary bypass graft; R10.13 Epigastric pain; R11.0 Nausea; F32.9 Major depressive disorder, single episode, unspecified; K29.70 Gastritis, unspecified, without bleeding; R55 Syncope and collapse
CPT/HCPCS: 36415; 70450; 70496; 70498; 70551; 71045; 74176; 76775; 80048; 80053; 80061; 81001; 81003; 82043; 82140; 82306; 82570; 82652; 82962; 83036; 83690; 83735; 83880; 83970; 84100; 84155; 84156; 84165; 84166; 84300; 84439; 84443; 84481; 84484; 85025; 85610; 85730; 86038; 86255; 86320; 86325; 86704; 86803; 87340; 92526; 92610; 93005; 93306; 93880; 94640; 94664; 96374; 97110; 97116; 97161; 97165; 97530; 97535; C9113; J0360; J1815; J2405; J2765; J7030; J7040; Q9967